=== PATIENT | female | born 1955 | race Caucasian/White ===

== ENCOUNTER 2020-10-03 15:21 | Outpatient (CLI) | payer MEDICARE, SELFPAY ==
--- NOTE | ~2020-10-03 | XR_ITS ---
XR lumbar spine 2-3V DATE: 10/03/2020 15:49 INDICATION: Low back pain radiating to left leg TECHNIQUE: AP, lateral, coned lateral lumbosacral views COMPARISON: None FINDINGS: There is diffuse osteopenia. No fracture or bone destruction of the lumbar spine. The lumbar pedicles are intact. There is mild degenerative disc disease at L1 to, L3-4 and L4-5. There is moderately severe degenerat theron disc disease at L5-S1. The sacroiliac joints appear normal. There is a prominent amount fecal material in the colon, particularly the descending colon. IMPRESSION: Diffuse osteopenia Multilevel degenerative disc disease Reviewed, dictated and finalized at location A.
== END 2020-10-03 15:22 | disposition home or self-care (01) ==
LOC: ANHIMG 15:28
PROVIDERS: PCP Family Medicine; Visit Provider Family Medicine
DX: M54.5 Low back pain (principal); M85.88 Other specified disorders of bone density and structure, other site; M51.36 Other intervertebral disc degeneration, lumbar region
CPT/HCPCS: 72100

== ENCOUNTER 2020-11-14 13:44 | Outpatient (CLI) | payer MEDICARE, SELFPAY ==
--- NOTE | ~2020-11-14 | DEXA_ITS ---
Bone Density Report Name: Maryjo Virk Age: 65 Sex: Female Ethnicity: White Date of : 1955 Indication: postmenopausal; height loss; Referring Provider: Berry Hall Study: Bone densitometry was performed. Exam Date: November 14, 2020 Accession number: [id number] Bone Density: Region BMD T-score Z-score Classification AP Spine (L1, L2, L3) 0.917 -0.9 0.7 Normal Femoral Neck (Left) 0.712 -1.2 0.2 Osteopenia Total Hip (Left) 0.813 -1.1 0.1 Osteopenia Total Hip Bilateral Avg 0.815 -1.1 0.1 Osteopenia Femoral Neck (Right) 0.670 -1.6 -0.2 Osteopenia Total Hip (Right) 0.817 -1.0 0.1 Normal World Health Organization criteria for BMD impression classify patients as: Normal (T-score at or above -1.0), Osteopenia (T-score between -1.0 and -2.5), or Osteoporosis (T-score at or below -2.5). 10-year Fracture Risk(1): Major Osteoporotic Fracture 8.6% Hip Fracture 0.9% Reported Risk Factors: [place] (), Neck BMD=0.670, BMI=31.8 (1) FRAX(R) Version 3.08. Fracture probability calculated for an untreated patient. Fracture probability may be lower if the patient has received treatment. Clinical Information Provided by Patient: Has used the following medications: Vitamin D Patient maximum height was 65 Menopause Age: 59 No regular weight bearing exercise Drinks caffeinated beverages Onset of menses at age 17 Number of children 0 Impression: The patient has low bone mass, based on the Right Femoral Neck T-score. The patient has an estimated ten-year risk of hip fracture of 0.9% and an estimated ten-year risk of major fracture of 8.6%, based on the WHO FRAX algorithm. Discussion: BONE DENSITY IS LOW AT ONE OR MORE SKELETAL SITES. This patient's lowest T-score is low at one or more skeletal sites. It meets the World Health Organization's (WHO) criteria for ?low bone mass? (T-score between -1.0 and -2.5). The patient's 10-year risk of fracture as calculated by FRAX is less than the threshold where pharmacological therapy is recommended by the National Osteoporosis Foundation (NOF). However, all treatment decisions require clinical judgment and consideration of individual patient factors, including patient preferences, comorbidities, previous drug use, risk factors not captured in the FRAX model (e.g., frailty, falls, vitamin D deficiency, increased bone turnover, interval significant decline in bone density) and possible under or overestimation of fracture risk by FRAX. The patient should follow a healthful lifestyle (good nutrition with adequate calcium and vitamin D, and appropriate weight-bearing exercise). Follow-Up: Consider repeating this study in 2 to 3 years to reassess this patient's status, or sooner if there is some new clinical indication. Reported by: CHUCHO on 11/14/2020 2:12:00 PM. _
== END 2020-11-14 13:45 | disposition home or self-care (01) ==
PROVIDERS: PCP Family Medicine; Visit Provider Family Medicine
DX: Z78.0 Asymptomatic menopausal state (principal); M85.89 Other specified disorders of bone density and structure, multiple sites
CPT/HCPCS: 77080

== ENCOUNTER 2021-03-15 13:05 | Outpatient (CLI) | payer MEDICARE, SELFPAY ==
--- NOTE | ~2021-03-15 | CT_ITS ---
EXAMINATION: CT soft tissue neck chest w EXAM DATE: 03/15/2021 13:40 INDICATION: R07.89 - Other chest pain . TECHNIQUE: Spiral CT of the neck and chest was performed following intravenous injection of 75 mL Omn ipaque 350. Axial, coronal and sagittal images of the neck were reviewed. Axial, coronal and sagitt al images of the chest were reviewed. Coronal maximum intensity pixel images of chest reviewed. The dose-length product (DLP) for this examination was 726.92 mGy-cm. The exposure was tailored accordi ng to patient size (auto mA exposure control), and iterative reconstruction (ASIR) was used as additi onal dose reduction technique. Correlation is made to abdomen pelvis CT 2010. FINDINGS: NECK: The thyroid gland is unremarkable. The submandibular and parotid glands are symmetric. Ther e is no cervical lymphadenopathy. There are no masses identified. The airway is unremarkable. P arapharyngeal and pre-glottic fat planes are preserved. No carotid, subclavian or vertebral artery dissection or stenosis. The orbits are unremarkable. Visualized sinuses and mastoid air cells are well aerated. There is overall moderate cervical spondylosis. CHEST: Right lower lobe 3.5 mm nodule is stable compared to 2011. Left lower lobe 4 mm nodule not pre viously imaged. Several smaller nodules. These are likely postinfectious. No central pulmonary emboli . There are no pleural or pericardial effusions. Tracheobronchial tree is patent. There is no med iastinal, hilar or axillary lymphadenopathy. There is no pneumothorax. Heart normal in size. No evidence of coronary arterial calcification. Splenic granulomata. There is small sliding gastroesoph ageal hiatal hernia. There is mild to moderate thoracic spondylosis without osteoblastic or osteolyt ic lesions identified. IMPRESSION: 1. No acute findings. 2. Several small nodules likely granulomata. Optional one-year follow-up chest CT without contrast. Reviewed, dictated and finalized at location B.
[2021-03-15 13:36] LABS: Estimated Glomerular Filt Rate > 60
== END 2021-03-15 13:06 | disposition home or self-care (01) ==
PROVIDERS: PCP Family Medicine; Visit Provider Family Medicine
DX: R07.89 Other chest pain (principal); S29.011A Strain of muscle and tendon of front wall of thorax, initial encounter; R91.8 Other nonspecific abnormal finding of lung field
CPT/HCPCS: 70491; 71260; Q9967

== ENCOUNTER → 2022-05-21 12:59 | Outpatient (CLI) | payer MEDICARE, SELFPAY ==
--- NOTE | ~2022-05-21 | MM_ITS ---
EXAMINATION: MM screening [facility] BI w franny HISTORY: Screening mammogram TECHNIQUE: Craniocaudal and mediolateral oblique 3-D tomosynthesis images were obtained and synthetic 2-D images were generated. CAD analysis was submitted and interpreted. COMPARISON: 01/12/2021, 01/25/2019, 10/29/2017 BREAST PARENCHYMAL COMPOSITION: There are scattered areas of fibroglandular density. FINDINGS: No suspicious mass, calcification, or architectural distortion are identified in either apoorva ast to suggest malignancy. There has been no suspicious interval change. IMPRESSION: 1. No mammographic evidence of malignancy. 2. Recommend routine screening mammography in one year. BI-RADS Category 1: Negative Reviewed, dictated and finalized at location A. 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
== END ==
PROVIDERS: Visit Provider Family Medicine
DX: Z12.31 Encounter for screening mammogram for malignant neoplasm of breast (principal)
CPT/HCPCS: 77063; 77067

== ENCOUNTER → 2022-06-03 11:55 | Outpatient (CLI) | payer MEDICARE, SELFPAY ==
--- NOTE | ~2022-06-03 | XR_ITS ---
Cervical Spine: AP, oblique, lateral, open-mouth views Clinical History: Cervicalgia Findings: The normal lordotic curve is maintained. The vertebral bodies and posterior elements appea r intact. Mild degenerative disc changes are noted at C4-C5, C5-C6, and C6-C7. Probable mild bilatera l neural foraminal narrowing at C4-C5 and C5-C6. Pre-vertebral soft tissues are unremarkable. Impression: Mild degenerative changes, as detailed above. No fracture or subluxation. Reviewed, dictated and finalized at location M. ROLLER Impression: Mild degenerative changes, as detailed above. No fracture or subluxation.
== END ==
PROVIDERS: PCP Family Medicine; Visit Provider Family Medicine
DX: M54.2 Cervicalgia (principal)
CPT/HCPCS: 72050

== ENCOUNTER 2022-06-04 09:23 | Outpatient (CLI) | payer MEDICARE, SELFPAY ==
[2022-06-04 20:04] LABS: Kit Draw Collected
== END 2022-06-04 09:24 | disposition home or self-care (01) ==
LOC: ANHGOSHLAB 09:26
PROVIDERS: PCP Family Medicine; Visit Provider Family Medicine
DX: E78.5 Hyperlipidemia, unspecified (principal); E55.9 Vitamin D deficiency, unspecified; F32.9 Major depressive disorder, single episode, unspecified; I42.9 Cardiomyopathy, unspecified; E53.8 Deficiency of other specified B group vitamins
CPT/HCPCS: 36415

== ENCOUNTER → 2022-06-11 09:52 | Outpatient (CLI) | payer MEDICARE, SELFPAY ==
--- NOTE | ~2022-06-11 | CT_ITS ---
CT Scan of the Chest without Contrast: Clinical Indication: Multiple pulmonary nodules Technique: Contiguous sections were acquired throughout the chest without intravenous contrast. Dose reduction technique was used on this scan by utilizing automated exposure control and iterative recon struction technique. The dose-length product (DLP) was 93.60 mGy-cm. COMPARISON: CT neck dated 03/15/2021 Findings: There is no evidence of any significant mediastinal, hilar or axillary lymphadenopathy. The mediastin al soft tissues appear normal. There is no evidence of pleural or pericardial effusion. There is a 4 mm right lower lobe pulmonary nodule (axial image 69). Several tiny right upper lobe sub pleural nodules are present. There is a perifissural nodule along the left major fissure in the left lower lobe, measuring 5 mm in diameter. Calcified left lower lobe granulomas are also noted. Images through the upper abdomen reveal no abnormalities. Impression: 4 mm right lower lobe pulmonary nodule, as detailed above. According to Fleischner Society criteria, for a low-risk patient, no further follow-up required. For a high-risk patient, consider 12 month fol low-up CT. Additional benign pulmonary nodules, as noted above. Reviewed, dictated and finalized at location M. 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 According to Fleisch ner Society criteria, for a low-risk patient, no further follow-up required. Fo r a high-risk patient, consider 12 month follow-up CT. Additional benign pulmonary nodules, as noted above.
== END ==
PROVIDERS: PCP Family Medicine; Visit Provider Family Medicine
DX: R91.8 Other nonspecific abnormal finding of lung field (principal)
CPT/HCPCS: 71250

== ENCOUNTER 2022-11-12 10:22 | Outpatient (CLI) | payer MEDICARE, SELFPAY ==
[2022-11-12 21:12] LABS: Basophils Absolute Auto 0.1 K/mm3 (0.0-0.1); Basophils Percent Auto 0.9 % (0.2-1.2); Eosinophils Absolute Auto 0.2 K/mm3 (0-0.3); Immature Granulocyte Absolute 0.01 K/mm3 (0.00-0.031); Immature Granulocyte Percent A 0.1 % (0-0.5); Lymphocytes Absolute Auto 2.25 K/mm3 (0.9-3.2); Lymphocytes Percent Auto 32.2 % (18.3-44.2); Mean Corpuscular Hemoglobin 29.1 pg (26-34); Monocytes Absolute Auto 0.7 K/mm3 (0.1-0.6); Monocytes Percent Auto 10.2 % (2.6-8.5); Neutrophils Absolute Auto 3.8 K/mm3 (1.3-6.7); Neutrophils Percent Auto 53.6 % (45.5-73.1); Platelet Count Result 280 k/mm3 (150-375); Red Blood Count 4.47 M/mm3 (4.2-5.4); Red Cell Distribution Width 14.1 % (11.5-14.5)
[2022-11-12 21:34] LABS: Vitamin D 25 Hydroxy 44.7 ng/mL
[2022-11-12 23:43] LABS: Alanine Aminotransferase 29 U/L (6-35); Alkaline Phosphatase 87 U/L (38-126); Anion Gap 9 mmol/L (8-16); Aspartate Amino Transferase 29 U/L (14-36); Bilirubin,Total 0.3 mg/dL (0.2-1.3); Blood Urea Nitrogen 13 mg/dL (7-17); Carbon Dioxide 26 mmol/L (22-30); Chloride 105 mmol/L (98-107); Estimated Glomerular Filt Rate > 60; Glucose 89 mg/dL (65-110); Magnesium 2.2 mg/dL (1.6-2.3); Sodium 140 mmol/L (137-145)
== END 2022-11-12 10:23 | disposition home or self-care (01) ==
LOC: ANHGOSHLAB 10:23
PROVIDERS: PCP Family Medicine; Visit Provider Nurse Practitioner Family
DX: R25.2 Cramp and spasm (principal); E53.8 Deficiency of other specified B group vitamins; E87.8 Other disorders of electrolyte and fluid balance, not elsewhere classified; E55.9 Vitamin D deficiency, unspecified
CPT/HCPCS: 36415; 80053; 82306; 82607; 83735; 85025

== ENCOUNTER 2022-11-19 15:35 | Outpatient (CLI) | payer MEDICARE, SELFPAY ==
--- NOTE | ~2022-11-19 | US_ITS ---
EXAMINATION: US venous doppler [facility] DATE: 11/19/2022 16:11 INDICATION: M79.661 - Pain in right lower leg . TECHNIQUE: Grayscale images without and with compression and Doppler images of the bilateral lower ex tremity veins were obtained. COMPARISON: None FINDINGS: The right common femoral vein, profunda (deep) femoral vein, femoral vein, popliteal vein, peroneal v ein, posterior tibial veins, gastrocnemius vein, and greater saphenous vein are patent. The left common femoral vein, profunda (deep) femoral vein, femoral vein, popliteal vein, peroneal v ein, posterior tibial veins, gastrocnemius vein, and greater saphenous vein are patent. IMPRESSION: 1. Patent bilateral lower extremity veins. No evidence of deep venous thrombosis. Reviewed, dictated and finalized at location K. IMPRESSION: 1. Patent bilateral lower extremity veins. No evidence of deep venous thrombos is.
== END 2022-11-19 15:36 | disposition home or self-care (01) ==
PROVIDERS: PCP Family Medicine; Visit Provider Nurse Practitioner Family
DX: M79.662 Pain in left lower leg (principal); M79.661 Pain in right lower leg
CPT/HCPCS: 93970

== ENCOUNTER 2023-06-20 08:49 | Outpatient (CLI) | payer MEDICARE, SELFPAY ==
[2023-06-20 13:25] LABS: Basophils Absolute Auto 0.1 K/mm3 (0.0-0.1); Basophils Percent Auto 1.5 % (0.2-1.2); Eosinophils Absolute Auto 0.2 K/mm3 (0-0.3); Hematocrit 43.4 % (37.0-47.0); Hemoglobin 13.1 g/dL (12.0-15.0); Immature Granulocyte Absolute 0.02 K/mm3 (0.00-0.031); Immature Granulocyte Percent A 0.3 % (0-0.5); Lymphocytes Absolute Auto 2.65 K/mm3 (0.9-3.2); Lymphocytes Percent Auto 33.4 % (18.3-44.2); Mean Corpuscular HGB Conc 30.2 g/dl (32-36); Mean Corpuscular Hemoglobin 28.6 pg (26-34); Mean Corpuscular Volume 94.8 fl (80-100); Mean Platelet Volume 11.2 fl (7.4-10.4); Monocytes Absolute Auto 0.8 K/mm3 (0.1-0.6); Monocytes Percent Auto 10.6 % (2.6-8.5); Neutrophils Absolute Auto 4.1 K/mm3 (1.3-6.7); Neutrophils Percent Auto 51.2 % (45.5-73.1); Platelet Count Result 276 k/mm3 (150-375); Red Blood Count 4.58 M/mm3 (4.2-5.4); Red Cell Distribution Width 13.5 % (11.5-14.5); White Blood Count 7.9 K/mm3 (4.5-10.0)
[2023-06-20 13:47] LABS: Alanine Aminotransferase 29 U/L (6-35); Albumin Level 4.2 g/dL (3.5-5.1); Alkaline Phosphatase 83 U/L (38-126); Anion Gap 11 mmol/L (8-16); Aspartate Amino Transferase 52 U/L (14-36); Bilirubin,Total 0.4 mg/dL (0.2-1.3); Blood Urea Nitrogen 19 mg/dL (7-17); Calcium 9.2 mg/dL (8.4-10.2); Carbon Dioxide 24 mmol/L (22-30); Chloride 107 mmol/L (98-107); Estimated Glomerular Filt Rate > 60; Glucose 81 mg/dL (65-110); Potassium 3.7 mmol/L (3.4-5.0); Sodium 142 mmol/L (137-145)
[2023-06-20 14:46] LABS: Vitamin D 25 Hydroxy 38.5 ng/mL
[2023-06-20 15:19] LABS: Hemoglobin A1C 5.7 % (<5.7)
== END 2023-06-20 08:50 | disposition home or self-care (01) ==
LOC: ANHGOSHLAB 08:50
PROVIDERS: PCP Family Medicine; Visit Provider Nurse Practitioner Family
DX: F41.9 Anxiety disorder, unspecified (principal); E55.9 Vitamin D deficiency, unspecified; R73.03 Prediabetes; E53.8 Deficiency of other specified B group vitamins; Z13.29 Encounter for screening for other suspected endocrine disorder
CPT/HCPCS: 36415; 80053; 82306; 82607; 83036; 84443; 85025

== ENCOUNTER → 2023-07-28 09:05 | Outpatient (CLI) | payer MEDICARE, SELFPAY ==
--- NOTE | ~2023-07-28 | MR_ITS ---
EXAMINATION: MR foot RT wo con DATE: 07/28/2023 09:51 INDICATION: Right midfoot pain TECHNIQUE: Magnetic resonance imaging (MRI) of the right fore/mid foot was performed without intraven ous contrast. Sequences included sagittal T1-weighted FSE, sagittal fluid sensitive FSE STIR, coronal PD-weighted FS FSE, coronal T1-weighted FSE, axial PD-weighted FS FSE, and axial PD-weighted FSE. COMPARISON: None FINDINGS: Old healed fracture deformity at the distal diaphysis of the right fifth metatarsal which has healed with 25 degree medial angulation. No acute fracture. No fracture or pathologic marrow replacing proce ss. Mild polyarticular osteoarthritis involving the first metatarsophalangeal and multiple tarsometat arsal and interphalangeal joints. The Lisfranc ligament complex and the collateral ligament complex a t the metatarsophalangeal and interphalangeal joints are normal. Mild enthesopathy with small amount of enthesopathic ossification at the tibialis anterior insertion to the medial base of the first meta tarsal. Remainder of the visualized flexor and extensor tendons are normal. Intrinsic musculature of the foot demonstrates normal bulk and signal. Physiologic amount fluid in the joint spaces. There are couple small ganglion cysts plantar to the head of the second metatarsal, the larger plantar to the first intermetatarsal space measuring 6 x 6 x 4 mm. IMPRESSION: 1. Enthesopathy at the first metatarsal insertion of the tibialis anterior tendon which is located re latively close proximity to the marker indicating the site of maximal pain. 2. Typical distribution of mild polyarticular osteoarthritis in the mid and forefoot. Line 3. Couple small ganglion cysts located plantar the head of the second metatarsal likely arising from the second metatarsophalangeal joint. Reviewed, dictated and finalized at location A. 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 Enthesopathy at the first metatarsal insertion of the tibialis anterior tend on which is located relatively close proximity to the marker indicating the sit e of maximal pain. 2. Typical distribution of mild polyarticular osteoarthritis in the mid and for efoot. Line 3. Couple small ganglion cysts located plantar the head of the second metatarsa l likely arising from the second metatarsophalangeal joint.
== END ==
PROVIDERS: PCP Orthopaedic Surgery; Visit Provider Orthopaedic Surgery
DX: M79.671 Pain in right foot (principal)
CPT/HCPCS: 73718

== ENCOUNTER 2023-07-30 09:26 | Outpatient (CLI) | payer MEDICARE, SELFPAY ==
[2023-07-31 11:52] LABS: Rapid Plasma Reagin Non-Reactive (NonReactive)
[2023-08-01 21:26] LABS: Treponema pallidum Ab FTA ABS Nonreactive (Nonreactive)
== END 2023-07-30 09:27 | disposition home or self-care (01) ==
LOC: ANHGOSHLAB 09:28
PROVIDERS: PCP Family Medicine; Visit Provider Nurse Practitioner Family
DX: A53.0 Latent syphilis, unspecified as early or late (principal)
CPT/HCPCS: 36415; 86592; 86780

== ENCOUNTER 2024-02-18 09:40 | Outpatient (CLI) | payer MEDICARE, SELFPAY ==
--- NOTE | ~2024-02-18 | DEXA_ITS ---
Bone Density Report Name: FLORIAN LOWERY Age: 68 Sex: Female Ethnicity: White Date of : 1955 Indication: osteopenia; parental hip fracture; height loss; inflammatory bowel disease; rheumatoid arthritis; Referring Provider: ARABELLA TEE Study: Bone densitometry was performed. Exam Date: February 18, 2024 Accession number: [id number] Bone Density: Region BMD T-score Z-score Classification AP Spine(L1-L4) 1.018 -0.3 1.6 Normal Femoral Neck (Left) 0.682 -1.5 0.1 Osteopenia Total Hip (Left) 0.825 -1.0 0.4 Normal Femoral Neck (Right) 0.680 -1.5 0.1 Osteopenia Total Hip (Right) 0.838 -0.9 0.5 Normal Total Hip Mean 0.831 -1.0 0.5 Normal World Health Organization criteria for BMD impression classify patients as: Normal (T-score at or above -1.0), Osteopenia (T-score between -1.0 and -2.5), or Osteoporosis (T-score at or below -2.5). 10-year Fracture Risk(1): Major Osteoporotic Fracture 20% Hip Fracture 1.9% Reported Risk Factors: [place] (), Neck BMD=0.682, BMI=34.0, parental fracture, rheumatoid arthritis (1) FRAX(R) Version 3.08. Fracture probability calculated for an untreated patient. Fracture probability may be lower if the patient has received treatment. Previous Exams: Region Exam Age BMD T-score BMD Change BMD Change Date g/cm2 vs Baseline vs Previous Total Hip(Left) 02/18/2024 68 0.825 -1.0 0.012 (1.5%) 0.012 (1.5%) 11/14/2020 65 0.813 -1.1 Total Hip(Right) 02/18/2024 68 0.838 -0.9 0.021 (2.6%) 0.021 (2.6%) 11/14/2020 65 0.817 -1.0 *Denotes significance at 95% confidence level, LSC for Total Hip = 0.027 g/cm2 Clinical Information Provided by Patient: Parent has had a hip fracture Has rheumatoid arthritis Has used the following medications: Vitamin D Has the following medical conditions: Inflammatory bowel diseases Patient maximum height was 65.0 Menopause Age: 59 No regular weight bearing exercise Drinks caffeinated beverages Onset of menses at age 15 Number of children 0 Impression: The patient has low bone mass, based on the Left Femoral Neck T-score. The patient has an estimated ten-year risk of hip fracture of 1.9% and an estimated ten-year risk of major fracture of 20%, based on the WHO FRAX algorithm. The patient has risk factors, including: parental hip fracture. No significant bone loss was observed. Discussion: BONE DENSITY IS LOW AT ONE OR MORE SKELETAL SITES. THE PATIENT'S BMD AND CLINICAL RISK
== END 2024-02-18 09:41 | disposition home or self-care (01) ==
LOC: ANHIMG 09:40
PROVIDERS: PCP Nurse Practitioner Family; Visit Provider Nurse Practitioner Family
DX: Z78.0 Asymptomatic menopausal state (principal); M84.374A Stress fracture, right foot, initial encounter for fracture; E55.9 Vitamin D deficiency, unspecified; M85.852 Other specified disorders of bone density and structure, left thigh; M85.851 Other specified disorders of bone density and structure, right thigh
CPT/HCPCS: 77080

== ENCOUNTER 2024-06-25 12:45 | Outpatient (CLI) | payer MEDICARE, SELFPAY ==
[2024-06-25 15:02] LABS: Iron 88 ug/dL (37-170)
[2024-06-25 15:11] LABS: Basophils Percent Auto 0.5 % (0.2-1.2); Eosinophils Absolute Auto 0.1 K/mm3 (0-0.3); Eosinophils Percent Auto 1.8 % (0-4.4); Hematocrit 42.4 % (37.0-47.0); Hemoglobin 13.4 g/dL (12.0-15.0); Immature Granulocyte Absolute 0.02 K/mm3 (0.00-0.031); Immature Granulocyte Percent A 0.3 % (0-0.5); Lymphocytes Absolute Auto 2.14 K/mm3 (0.9-3.2); Lymphocytes Percent Auto 28.2 % (18.3-44.2); Mean Corpuscular HGB Conc 31.6 g/dl (32-36); Mean Corpuscular Hemoglobin 28.6 pg (26-34); Mean Corpuscular Volume 90.4 fl (80-100); Mean Platelet Volume 11.2 fl (7.4-10.4); Monocytes Absolute Auto 0.6 K/mm3 (0.1-0.6); Monocytes Percent Auto 8.4 % (2.6-8.5); Neutrophils Absolute Auto 4.6 K/mm3 (1.3-6.7); Neutrophils Percent Auto 60.8 % (45.5-73.1); Platelet Count Result 250 k/mm3 (150-375); Red Blood Count 4.69 M/mm3 (4.2-5.4); Red Cell Distribution Width 13.5 % (11.5-14.5); White Blood Count 7.6 K/mm3 (4.5-10.0)
[2024-06-25 15:14] LABS: Percent Iron Saturation 26 % (20-50); TOTAL IRON BINDING CAPACITY 343 ug/dL (261-462)
[2024-06-25 15:24] LABS: Alanine Aminotransferase 25 U/L (6-35); Albumin Level 4.2 g/dL (3.5-5.1); Alkaline Phosphatase 82 U/L (38-126); Anion Gap 2 mmol/L (4-12); Aspartate Amino Transferase 37 U/L (14-36); Bilirubin,Total 0.4 mg/dL (0.2-1.3); Blood Urea Nitrogen 15 mg/dL (7-17); Calcium 9.4 mg/dL (8.4-10.2); Carbon Dioxide 27 mmol/L (22-30); Chloride 110 mmol/L (98-107); Cholesterol 128 mg/dL (0-200); Estimated Glomerular Filt Rate > 60; Glucose 95 mg/dL (65-110); HDL Direct 52 mg/dL; Potassium 4.3 mmol/L (3.4-5.0); Sodium 139 mmol/L (137-145); Triglycerides 80 mg/dL (<150)
[2024-06-25 15:37] LABS: LDL Cholesterol Direct 48 mg/dL
[2024-06-25 16:50] LABS: Hemoglobin A1C 5.8 % (<5.7)
[2024-06-25 17:37] LABS: Folic Acid 14.9 ng/mL (2.76->20)
== END 2024-06-25 12:46 | disposition home or self-care (01) ==
LOC: ANHGOSHLAB 12:46
PROVIDERS: PCP Family Medicine; Visit Provider Family Medicine
DX: E11.9 Type 2 diabetes mellitus without complications (principal); E03.9 Hypothyroidism, unspecified; D64.9 Anemia, unspecified; E53.8 Deficiency of other specified B group vitamins; I10 Essential (primary) hypertension; E78.5 Hyperlipidemia, unspecified; I42.9 Cardiomyopathy, unspecified; I47.10 Supraventricular tachycardia, unspecified
CPT/HCPCS: 36415; 80053; 80061; 82607; 82728; 82746; 83036; 83540; 83550; 84443; 85025

== ENCOUNTER 2024-11-26 09:51 | Outpatient (CLI) | payer MEDICARE, SELFPAY ==
--- NOTE | ~2024-11-26 | CT_ITS ---
EXAMINATION: CT abdomen pelvis w con DATE: 11/26/2024 10:35 INDICATION: Pelvic pain TECHNIQUE: Computed tomography (CT) of the abdomen and pelvis was performed with 100 cc Omnipaque 350 intravenous contrast. The dose-length product was 670.38 mGy-cm. Automated exposure control and iter ative reconstruction technique were employed. COMPARISON: 09/06/2010 FINDINGS: Lung bases unremarkable. Heart size normal. No significant pleural or pericardial effusion. There are calcified granulomas of the spleen. There is fluid throughout the small bowel which is non dilated, nonspecific. Normal appendix. Mild fatty infiltration of the liver. The pancreas, adrenal glands and kidneys are unremarkable. Gall bladder is contracted. No free air or free fluid. No evidence for bowel obstruction. There is moderat e lower thoracic and lumbar spondylosis. There is degenerative spondylolisthesis at L4-5. IMPRESSION: 1. No acute abdominal abnormality. Reviewed, dictated and finalized at location A.
--- OUTSIDE RECORDS SUMMARY | 2024-11-26 09:58 | XMS_ITS | Data Portability ---
Author Organization [place] [facility] [employer], Main Office Address [address] [place] [address] Assessment Encounter Date Assessment Date Assessment LastModified by Organization Details LastModified Time 02/03/2024 02/03/2024 Assessment: Cough CARLOS Pulmonary nodules Splenic granulomas Plan: The following were reviewed and explained to the patient: Abdomen CT 06/30/20 up to 6 mm bilateral pulm nodules Chest CT 12/18/20 up to 4.4 mm bilateral pulm nodules, splenic granulomas, thoracic DDD [facility] sleep study 09/23/16 AHI = 3 Lab data 02/15/21 Reassurance that her lab work results are within normal limits. Her cough may be contributed by CARLOS as this is worse when she lays down at night. We will also consider the commonly used drugs that may be implicated in chronic cough Angiotensin 2 receptor (A2R) blockers - losartan - she takes daily and dose was increased from 50 to 100 mg daily since 2022. A2R blockers are commonly used as a first substitute when YANIRA inhibitor cough appears, though they have a similar side effect profile to YANIRA inhibitors. However, cough can still occur with A2R blockers but is typically three to four times less common. Cough recurrence rates are also lower with A2R blockers but they should not be overlooked as a cause of chronic cough. Non-steroidal anti-inflammatory drugs (NSAIDs) - meloxicam - but she uses rarely prn. Aspirin and NSAIDS can cause bronchoconstriction in 5% of people with asthma by driving cysteinyl leukotriene production and inhibiting cyclooxygenase-1 (BABB-1). Symptoms may occur within 30 minutes to 3 hours of ingestion and be associated with facial flushing and nasal and upper airway symptoms. Leukotriene antagonists (as part of asthma therapy) are particularly helpful in treating these symptoms. Complete pulmonary function testing (PFT) ordered. Her hypersomnia may be contributed by her morning dose of topiramate, which she has been taking for weight loss purposes. Recommend dosing topiramate at dinnertime instead. Fleischner Society pulmonary nodule recommendations: 1. Pulmonary nodule less than or equal to 4 mm: No follow-up needed in low risk patient. Follow-up at 12 months in high-risk patient. If no change, no further imaging needed. 2. 4-6 mm: Follow-up at 12 months in a low risk patient. If no change, no further imaging needed. Initial follow-up CT at 6 to 12 months and then at 18 to 24 months if no change in high-risk patient. 3. 6-8 mm: Initial follow-up CT at 6 to 12 months and then at 18 to 24 months if no change in low-risk patient. 4. >8 mm: Follow-up CT at around 3, 9 and 24 months. Dynamic contrast enhanced CT, PET, and or biopsy in low risk patient. Same as low risk patient in high-risk patient. Chest CT ordered. Advised to continue not to smoke. Adherence to therapy is advocated. Nonadherence may lead to treatment failure, further progression of the condition, and other complications. Hospitals admissions are often the result of individuals not taking prescription medications accurately. Alternatively, greater adherence to medication regimens have shown to lower rates of hospitalization and decrease total medical costs in patients with chronic medical conditions. Advocated influenza vaccination annually and pneumonia vaccination FRANCISCO. Advocated weight loss through diet and exercise. Patient's ideal body weight according to height and gender is up to 135 lbs. Encouraged patient to adjust caloric intake to maintain/achieve ideal body weight, emphasizing on fruits, vegetables, whole grains, and fat-free or low-fat products. These include lean meats, poultry, fish, beans, eggs, and nuts and foods that are low in saturated fats, trans-fats, cholesterol, salt (sodium), and glycemic index. Stressed the importance of regular exercise up to the patient's capacity limits. In this case, we recommend 20 min daily walking, 2 days a week of resistance training. Patient to monitor BP daily and bring records to PCP for further management. Follow-up: 1 week after PFT and chest CT Not available 02/03/2024 12:35:48 03/15/2024 03/15/2024 Assessment: CARLOS Mild COPD Stable pulmonary nodules Splenic granulomas Plan: The following were reviewed and explained to the patient: Abdomen CT 06/30/20 up to 6 mm bilateral pulm nodules Chest CT 12/18/20 up to 4.4 mm bilateral pulm nodules Chest CT 02/16/24 up to 3 mm bilateral pulm nodules [facility] sleep study 09/23/16 AHI = 3 Lab data 02/15/21 2-D echocardiogram 07/05/21 EF 60% PFT 03/15/24 FEV1 2.27 L (106%), BD 90 mL = 4%, TLC 4.70 L (106%), RV 0.99 L (57%), DLCO 69%, DLCO/VA 85% Her cough may be contributed by CARLOS as this is worse when she lays down at night. We will also consider the commonly used drugs that may be implicated in chronic cough Angiotensin 2 receptor (A2R) blockers - losartan - she takes daily and dose was increased from 50 to 100 mg daily since 2022. A2R blockers are commonly used as a first substitute when YANIRA inhibitor cough appears, though they have a similar side effect profile to YANIRA inhibitors. However, cough can still occur with A2R blockers but is typically three to four times less common. Cough recurrence rates are also lower with A2R blockers but they should not be overlooked as a cause of chronic cough. Non-steroidal anti-inflammatory drugs (NSAIDs) - meloxicam - but she uses rarely prn. Aspirin and NSAIDS can cause bronchoconstriction in 5% of people with asthma by driving cysteinyl leukotriene production and inhibiting cyclooxygenase-1 (BABB-1). Symptoms may occur within 30 minutes to 3 hours of ingestion and be associated with facial flushing and nasal and upper airway symptoms. Leukotriene antagonists (as part of asthma therapy) are particularly helpful in treating these symptoms. General information on COPD was covered. Educational video was shown. The video explained what COPD is and how it affects breathing. Self-care skills such as not smoking, using medications as prescribed, oxygen therapy, and knowing when to contact the healthcare provider are covered. Diaphragmatic breathing and pursed lip breathing are explained and demonstrated. Positive lifestyle changes are introduced. Following these self-care skills will help in the management of COPD so the patient can stay out of the hospital. Albuterol HFA as needed. Her hypersomnia may be contributed by her morning dose of topiramate, which she has been taking for weight loss purposes. Recommend dosing topiramate at dinnertime instead. Fleischner Society pulmonary nodule recommendations: 1. Pulmonary nodule less than or equal to 4 mm: No follow-up needed in low risk patient. Follow-up at 12 months in high-risk patient. If no change, no further imaging needed. 2. 4-6 mm: Follow-up at 12 months in a low risk patient. If no change, no further imaging needed. Initial follow-up CT at 6 to 12 months and then at 18 to 24 months if no change in high-risk patient. 3. 6-8 mm: Initial follow-up CT at 6 to 12 months and then at 18 to 24 months if no change in low-risk patient. 4. >8 mm: Follow-up CT at around 3, 9 and 24 months. Dynamic contrast enhanced CT, PET, and or biopsy in low risk patient. Same as low risk patient in high-risk patient. Repeat chest CT 01/2025. Advised to continue not to smoke. Adherence to therapy is advocated. Nonadherence may lead to treatment failure, further progression of the condition, and other complications. Hospitals admissions are often the result of individuals not taking prescription medications accurately. Alternatively, greater adherence to medication regimens have shown to lower rates of hospitalization and decrease total medical costs in patients with chronic medical conditions. Advocated influenza vaccination annually and pneumonia vaccination FRANCISCO. Advocated weight loss through diet and exercise. Patient's ideal body weight according to height and gender is up to 135 lbs. Encouraged patient to adjust caloric intake to maintain/achieve ideal body weight, emphasizing on fruits, vegetables, whole grains, and fat-free or low-fat products. These include lean meats, poultry, fish, beans, eggs, and nuts and foods that are low in saturated fats, trans-fats, cholesterol, salt (sodium), and glycemic index. Stressed the importance of regular exercise up to the patient's capacity limits. In this case, we recommend 20 min daily walking, 2 days a week of resistance training. Patient to monitor BP daily and bring records to PCP for further management. Follow-up: 3 months, May 2024 Not available 03/15/2024 13:47:05 06/14/2024 06/14/2024 Assessment: CARLOS Mild COPD Stable pulmonary nodules Splenic granulomas Plan: The following were reviewed and explained to the patient: Abdomen CT 06/30/20 up to 6 mm bilateral pulm nodules Chest CT 12/18/20 up to 4.4 mm bilateral pulm nodules Chest CT 02/16/24 up to 3 mm bilateral pulm nodules [facility] sleep study 09/23/16 AHI = 3 Lab data 02/15/21 2-D echocardiogram 07/05/21 EF 60% PFT 03/15/24 FEV1 2.27 L (106%), BD 90 mL = 4%, TLC 4.70 L (106%), RV 0.99 L (57%), DLCO 69%, DLCO/VA 85% General information on COPD was covered. The video explained what COPD is and how it affects breathing. Self-care skills such as not smoking, using medications as prescribed, oxygen therapy, and knowing when to contact the healthcare provider are covered. Diaphragmatic breathing and pursed lip breathing are explained and demonstrated. Positive lifestyle changes are introduced. Following these self-care skills will help in the management of COPD so the patient can stay out of the hospital. Albuterol HFA as needed. Her hypersomnia may be contributed by her morning dose of topiramate, which she has been taking for weight loss purposes. Recommend dosing topiramate at dinnertime instead. Fleischner Society pulmonary nodule recommendations: 1. Pulmonary nodule less than or equal to 4 mm: No follow-up needed in low risk patient. Follow-up at 12 months in high-risk patient. If no change, no further imaging needed. 2. 4-6 mm: Follow-up at 12 months in a low risk patient. If no change, no further imaging needed. Initial follow-up CT at 6 to 12 months and then at 18 to 24 months if no change in high-risk patient. 3. 6-8 mm: Initial follow-up CT at 6 to 12 months and then at 18 to 24 months if no change in low-risk patient. 4. >8 mm: Follow-up CT at around 3, 9 and 24 months. Dynamic contrast enhanced CT, PET, and or biopsy in low risk patient. Same as low risk patient in high-risk patient. Repeat chest CT 01/2025. Advised to continue not to smoke. Adherence to therapy is advocated. Nonadherence may lead to treatment failure, further progression of the condition, and other complications. Hospitals admissions are often the result of individuals not taking prescription medications accurately. Alternatively, greater adherence to medication regimens have shown to lower rates of hospitalization and decrease total medical costs in patients with chronic medical conditions. Advocated influenza vaccination annually and pneumonia vaccination FRANCISCO. Advocated weight loss through diet and exercise. Patient's ideal body weight according to height and gender is up to 135 lbs. Encouraged patient to adjust caloric intake to maintain/achieve ideal body weight, emphasizing on fruits, vegetables, whole grains, and fat-free or low-fat products. These include lean meats, poultry, fish, beans, eggs, and nuts and foods that are low in saturated fats, trans-fats, cholesterol, salt (sodium), and glycemic index. Stressed the importance of regular exercise up to the patient's capacity limits. In this case, we recommend 20 min daily walking, 2 days a week of resistance training. Patient to monitor BP daily and bring records to PCP for further management. Follow-up: 9 months, February 2025 [facility] Not available 06/14/2024 11:10:53 Plan of Treatment Reminders Order Date Submit Date Provider Last Modified By Organization Details Last Modified Time Details Appointments Any 15 2024 09:00A Bessie Ma MD Not available Not available Not available Lab None recorded. Referral None recorded. Procedures None recorded. Surgeries None recorded. Imaging CT, chest, w/o contrast 2023 025 [facility] Not available 06/14/2024 11:13:33 CT, chest, w/o contrast 2023 024 [facility] ([facility]), [address] [place], [address], 02/16/2024 11:34:30 Medication Orders cefdinir 300 mg capsule 2024 025 [facility]/Pharmacy #[id number], [address], [place], [address], 11/24/2024 16:26:29 Medrol (Sergio) 4 mg tablets in a dose pack 2024 025 [facility]/Pharmacy #[id number], [address], [place], [address], 11/24/2024 16:26:29 albuterol sulfate HFA 90 mcg/actua tion aerosol inhaler 2023 024 [facility]/Pharmacy #[id number], [address], [place], [address], 06/14/2024 11:13:35 albuterol sulfate HFA 90 mcg/actua tion aerosol inhaler 2023 024 [facility]/Pharmacy #[id number], [address], [place], [address], 03/15/2024 11:00:25 Patient TargetsNo targets recorded. Patient Instructions Encounter Date Encounter Id Patient Instructions Last Modified By Organization Details Last Modified Time 02/03/2024 [id number] complete PFT w/ post bronchodilator spirometry* [email or web address] Not available 03/10/2024 17:13:21 06/14/2024 [id number] complete PFT w/ post bronchodilator spirometry* Not available 06/14/2024 11:13:33 11/24/2024 [id number] no infection has been identified but she will be covered with cefdinir and Medrol. If there is no improvement we will do a [place] [id number] Not available 11/24/2024 16:25:59 Reason for Referral None Reported. Results Created Date Observation Date Name Description Value Unit Range Abnormal Flag Note LastModifiedBy Organization Detail LastModifiedTime 02/15/20 21 09/23/2016 home sleep study No observ ation record ed. [id number] Not Available 08/21/2022 23:31:05 02/16/20 21 01/25/2021 XR, chest , 2 view No observ ation record ed. Not Available 2023 15:18:34 02/16/20 21 06/30/2020 CT, abdom en + pelvi s, w/ contr ast No observ ation record ed. [id number] Not Available 08/21/2022 23:31:05 02/20/20 21 12/18/2020 CT, chest , w/o contr ast No observ ation record ed. [id number] Not Available 08/21/2022 23:31:05 07/09/19 22 07/05/2021 US, echo ardio gram, trans thora cic, compl ete, w/ color flow No observ ation record ed. [id number] [facility] [address], [place], [address], 08/21/2022 23:31:05 02/16/20 24 02/16/2024 CT, chest , w/o contr ast No observ ation record ed. [address] [place], [address], 02/16/2024 12:53:34 03/22/20 24 03/15/2024 compl ete PFT w/ post [facility] hodil ator samir metry * No observ ation record ed. [facility] ([facility]) [address] [place], [address], 03/22/2024 14:55:02 Result Notes None recorded. Problems Name Problem SNOMED Code Status Onset Date Resolution Date Notes Provider Name and Address Organization Details Recorded Time Chronic obstructive pulmonary disease 58995966 Active 2023 Bernard Ma MD [address], [place], [address], Qio 4 19:00:16 Multiple nodules of lung 330244060 Active 2023 Bernard Ma MD [address], [place], [address], Qio 4 11:03:34 Bilateral earache 629425102 Active 2024 Shyam Mccabe MD [address], [place], [address], Qio 5 16:24:53 Notes:Medical History: Depre ssion Migraine headaches Eosinophils 270/uL Mild OSAHS, AHI = 3, 09/23/16 Hyperlipidemia 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 Procedures Surgical History Date Name Laterality Status Provider Name and Address Organization Details Recorded Time Foot Surgery completed Ruth Valdes MA [facility] 02/03/2024 12:06:45 repair of stress incontinence by suprapubic sling completed Ruth Valdes MA [facility] 02/03/2024 12:06:55 laparoscopy completed Ruth Valdes MA [facility] 02/03/2024 12:07:09 Imaging Results None recorded. Procedure Notes None recorded. Medical Equipment None Reported. Allergies No known drug allergies Medications Name Sig Start Date Stop Date Status Note LastModified by Organization Details LastModified Time losartan 50 mg tablet TAKE 1 TABLET BY MOUTH EVERY DAY 02/02 completed Not Available Not Available Not Available atorvastati n 80 mg tablet TAKE 1 TABLET BY MOUTH EVERY DAY active Not Available Not Available No t Available prednisone 10 mg tablet TAKE 4 TABS DAILY X3 DAYS, 3 TABS DAILY X3 DAYS, 2 TABS DAILY X3 DAYS, THEN 1 TAB DAILY X3 DAYS 05/26 completed Not Available Not Available Not Available doxycycline hyclate 100 mg capsule TAKE 1 CAPSULE BY MOUTH TWICE A DAY FOR 7 DAYS 02/02 completed Not Available Not Available Not Available triamcinolo ne acetonide 0.5 % topical cream APPLY TOPICALLY 2 TIMES A DAY USE NEEDED FOR ITCHING 06/14 completed Not Available Not Available Not Available fluconazole 150 mg tablet TAKE 1 TABETS BY MOUTH NOW AND ANOTHER IN 72 HOURS (3 DAYS) IF STILL HAVING SYMPTOMS 02/14 completed Not Available Not Available Not Available benzonatate 200 mg capsule TAKE 1 CAPSULE BY MOUTH THREE TIMES A DAY NEEDED FOR COUGH active Not Available Not Available No t Available meloxicam 15 mg tablet TAKE 1 TABLET BY MOUTH EVERY DAY active Not Available Not Available No t Available naltrexone 50 mg tablet TAKE 1/2 TABLET BY MOUTH DAILY, MAY INCREASE TO 1/2 TABLET TWICE A DAY IF NEEDED AFTER 1 WEEK 06/14 completed Not Available Not Available Not Available ondansetron HCl 4 mg tablet TAKE 1 TABLET BY MOUTH EVERY 8 HOURS NEEDED FOR NAUSEA AND VOMITING 03/15 completed Not Available Not Available Not Available Medrol (Sergio) 4 mg tablets in a dose pack Take 1 dose pk by oral route. 2024 active Not Available Not Available Not Avai lable sertraline 100 mg tablet TAKE 1 TABLET BY MOUTH EVERY DAY 06/14 completed Not Available Not Available Not Available permethrin 5 % topical cream APPLY FROM NECK DOWN TO SOLE OF FEET, WASH OFF AFTER AT LEAST 8 HOURS, REPEAT IN 14 DAYS IF NEEDED active Not Available Not Available No t Available prochlorper azine maleate 10 mg tablet TAKE 1 TABLET BY MOUTH EVERY 8 HOURS NEEDED 02/14 completed Not Available Not Available Not Available peg-electro lyte solution 420 gram oral solution TAKE DIRECTED BY OFFICE 02/02 completed Not Available Not Available Not Available omeprazole 40 mg capsule,del ayed release TAKE 1 CAPSULE BY MOUTH EVERY DAY 02/02 completed Not Available Not Available Not Available aspirin 81 mg tablet,lady yed release TAKE 1 TABLET BY MOUTH EVERY DAY 02/15 completed Not Available Not Available Not Available tramadol 50 mg tablet TAKE 1 TABLET (50 MG TOTAL) BY MOUTH EVERY 8 (EIGHT) HOURS NEEDED FOR PAIN. 02/02 completed Not Available Not Available Not Available ondansetron 8 mg disintegrat ing tablet LET 1 TABLET DISSOLVE BY MOUTH EVERY 8 HOURS NEEDED FOR NAUSEA/VO MITING 02/02 completed Not Available Not Available Not Available levothyroxi ne 25 mcg tablet TAKE 1 TABLET BY MOUTH EVERY DAY active Not Available Not Available No t Available dicyclomine 20 mg tablet TAKE 1 TABLET BY MOUTH TWICE A DAY 02/02 completed Not Available Not Available Not Available amlodipine 10 mg tablet TAKE 1 TABLET BY MOUTH EVERY DAY active Not Available Not Available No t Available benzonatate 100 mg capsule TAKE 1 CAPSULE BY MOUTH THREE TIMES A DAY NEEDED FOR COUGH 05/26 completed Not Available Not Available Not Available doxycycline monohydrate 100 mg capsule TAKE 1 CAPSULE BY MOUTH TWICE A DAY FOR 7 DAYS 02/02 completed Not Available Not Available Not Available cephalexin 500 mg capsule TAKE 1 CAPSULE (500 MG TOTAL) BY MOUTH ONCE FOR 1 DOSE 30 MINUTE PRIOR TO THE URO-D TEST 03/15 completed Not Available Not Available Not Available pantoprazol e 40 mg tablet,lady yed release TAKE 1 TABLET BY MOUTH EVERY DAY IN THE MORNING active Not Available Not Available No t Available ferrous sulfate 325 mg (65 mg iron) tablet TAKE 1 TABLET BY MOUTH EVERY DAY active Not Available Not Available No t Available triamcinolo ne acetonide 0.1 % topical ointment APPLY TO THE AFFECTED AREAS TWICE DAILY FOR 10 DAYS, AVOID FACE AND GENITAL AREA 06/14 completed Not Available Not Available Not Available prednisone 50 mg tablet TAKE 1 TABLET BY MOUTH EVERY DAY 02/15 completed Not Available Not Available Not Available promethazin e 25 mg tablet TAKE 1/2 TABLET BY MOUTH EVERY 6 HOURS NEEDED FOR NAUSEA 02/02 completed Not Available Not Available Not Available sertraline 25 mg tablet TAKE 1 TABLET BY MOUTH EVERY DAY active Not Available Not Available No t Available hydroxyzine HCl 25 mg tablet PLEASE SEE ATTACHED FOR DETAILED DIRECTION S active Not Available Not Available No t Available mupirocin 2 % topical ointment APPLY TO AFFECTED AREA 3 TIMES A DAY active Not Available Not Available No t Available albuterol sulfate HFA 90 mcg/actuati on aerosol inhaler INHALE 1 PUFF EVERY 4 HOURS NEEDED active Not Available Not Available No t Available sumatriptan 20 mg/actuatio n nasal spray USE DIRECTED NEEDED FOR MIGRAINE. LIMIT TO TWICE DAILY active Not Available Not Available No t Available ondansetron 4 mg disintegrat ing tablet DISSOLVE 1 TAB IN MOUTH 30 MINUTES PRIOR TO EACH PREP DOSE,THEN EVERY 4 6 HOURS NEEDED FOR NAUSEA 02/14 completed Not Available Not Available Not Available cefdinir 300 mg capsule Take 1 capsule every 12 hours by oral route. 2024 active Not Available Not Available Not Avai lable topiramate 100 mg tablet TAKE 1 TABLET BY MOUTH EVERY DAY active Not Available Not Available No t Available losartan 100 mg tablet TAKE 1 TABLET BY MOUTH EVERY DAY 06/14 completed Not Available Not Available Not Available fluticasone propionate 50 mcg/actuati on nasal spray,suspe nsion active Not Available Not Available Not Available cholecalcif vijay (vitamin D3) 125 mcg (5,000 unit) capsule TAKE 1 CAPSULE BY MOUTH EVERY DAY active Not Available Not Available No t Available dicyclomine 10 mg capsule TAKE 1 CAPSULE BY MOUTH THREE TIMES A DAY NEEDED FOR ABDOMINAL PAIN 02/15 completed Not Available Not Available Not Available phentermine 37.5 mg capsule TAKE 1 CAPSULE BY MOUTH EVERY DAY TO LOSE WEIGHT active Not Available Not Available No t Available amoxicillin 875 mg-guadalupeu m clavulanate 125 mg tablet TAKE 1 TABLET BY MOUTH TWICE A DAY 11/24 completed Not Available Not Available Not Available rizatriptan 5 mg tablet TAKE 1 TAB BY MOUTH ONCE AT FIRST SIGN OF MIGRAINE. MAY REPEAT ONE TIME AFTER 2 HOURS IF NEEDED. 02/02 completed Not Available Not Available Not Available ezetimibe 10 mg tablet TAKE 1 TABLET BY MOUTH EVERY DAY WITH ATORVASTA TIN active Not Available Not Available No t Available nitrofurant oin monohydrate /macrocryst als 100 mg capsule TAKE 1 CAPSULE BY MOUTH NEEDED AFTER INTERCOUR SE active Not Available Not Available No t Available trospium 20 mg tablet TAKE 1 TABLET BY MOUTH TWICE A DAY 06/14 completed Not Available Not Available Not Available Senexon-S 8.6 mg-50 mg tablet TAKE 1 TABLET BY MOUTH EVERY DAY 02/02 completed Not Available Not Available Not Available Suprep Bowel Prep Kit 17.5 gram-3.13 gram-1.6 gram oral solution TAKE FIRST DOSE AT 6PM THE NIGHT BEFORE PROCEDURE AND THEN TAKE 6 HOURS PRIOR TO PROCEDURE 02/14 completed Not Available Not Available Not Available Yuvafem 10 mcg vaginal tablet INSERT 1 TABLET VAGINALLY 2 TIMES WEEKLY FOR 30 DAYS 06/14 completed Not Available Not Available Not Available Linzess 72 mcg capsule TAKE 1 CAPSULE BY MOUTH ONCE DAILY ON EMPTY STOMACH AT LEAST 30 MINUTES BEFORE 1ST MEAL OF THE DAY 06/14 completed Not Available Not Available Not Available Ozempic 0.25 mg or 0.5 mg (2 mg/1.5 mL) subcutaneou s pen injector INJECT 0.25 MG SUBQ ONCE WEEKLY FOR 4 WEEKS. THEN INCREASE TO 0.5 MG SUBQ WEEKS TO REDUCE CV EVENTS. 02/15 completed Not Available Not Available Not Available Wegovy 0.25 mg/0.5 mL subcutaneou s pen injector INJECT THE CONTENTS OF 1 PEN UNDER THE SKIN ONCE WEEKLY X4 WEEKS active Not Available Not Available No t Available Vitals Date Recorded Body height Body mass index (BMI) Body weight Body temperature Provider Name and Address Organization Details Last Updated DateTime 11/24/2024 165.1 cm 30.8 kg/m2 46426.59 g 98 [degF] Kerri Vasquez RN [facility] [employer] 11/24/2024 16:08:29 Date Recorded Heart rate Respiratory rate Provider Wagner nataly and Address Organization Details Last Updated DateTime 02/03/2024 77 /min 15 /min Bernard Ma MD [address], [place], [address], [facility] [employer] 02/03/2024 12:09:41 Date Recorded Body height Body mass index (BMI) Body weight Body temperature Heart rate Oxygen saturation Oxygen saturation in Arterial blood by Pulse oximetry Systolic blood pressure Diastolic blood pressure Provider Name and Address Organization Details Last Updated DateTime 4 165.1 cm 31 kg/m2 90333.6 2 g 98.3 [degF] 77 /min 98 % 98 % 116 mm[Hg] 64 mm[Hg] Ruth Valdes MA [facility] [employer] 11:58:49 Date Recorded Body mass index (BMI) Body height Oxygen saturation Oxygen saturation in Arterial blood by Pulse oximetry Heart rate Respiratory rate Body temperature Body weight Systolic blood pressure Diastolic blood pressure Provider Name and Address Organization Details Last Updated DateTime 1 30.4 kg/m2 165.1 cm 99 % 99 % 87 /min 18 /min 98 [degF] 25069.6 9 g 118 mm[Hg] 86 mm[Hg] Not Available [facility] 3 23:28:30 Date Recorded Heart rate Respiratory rate Provider Wagner nataly and Address Organization Details Last Updated DateTime 03/15/2024 84 /min 14 /min Bernard Ma MD [address], [place], [address], [facility] [employer] 03/15/2024 11:04:41 Date Recorded Body height Body mass index (BMI) Body weight Heart rate Oxygen saturation Oxygen saturation in Arterial blood by Pulse oximetry Body temperature Systolic blood pressure Diastolic blood pressure Provider Name and Address Organization Details Last Updated DateTime 4 165.1 cm 30.8 kg/m2 93538.5 9 g 84 /min 98 % 98 % 98.1 [degF] 120 mm[Hg] 70 mm[Hg] Rigo Thomas CMA [facility] [employer] [facility] [employer] 10:45:23 Date Recorded Heart rate Respiratory rate Provider Wagner nataly and Address Organization Details Last Updated DateTime 06/14/2024 90 /min 15 /min Bernard Ma MD [address], [place], [address], [facility] [employer] 06/14/2024 11:20:36 Date Recorded Body height Body mass index (BMI) Body weight Body temperature Heart rate Oxygen saturation Oxygen saturation in Arterial blood by Pulse oximetry Systolic blood pressure Diastolic blood pressure Provider Name and Address Organization Details Last Updated DateTime 165.1 cm 29.8 kg/m2 78842.3 2 g 98.5 [degF] 90 /min 98 % 98 % 120 mm[Hg] 60 mm[Hg] Ruth Valdes MA [employer] [facility] [employer] 10:28:45 Social History Question Answer Notes LastModified by Organizat ion Details LastModified Time Tobacco Smoking Status Never Smoker Ruth Valdes MA null, [employer] [facility] [employer] 02/03/2024 12:04:52 What Is Your Level Of Caffeine Consumption? Moderate Information not available 02/03/2024 In The 14 Days Before Symptom Onset, Have You Had Close Contact With A Laboratory-confir med COVID-19 While That Case Was Ill? No Information not available 02/03/2024 In The 14 Days Before Symptom Onset, Have You Had Close Contact With A Person Who Is Under Investigation For COVID-19 While That Person Was Ill? No Information not available 02/03/2024 What Type Of Diet Are You Following? REGULAR Information not available 02/03/2024 Do You Have An Electrostatic Air Filter? No Information not available 02/03/2024 Are There Any Guns Present In Your Home? No Information not available 02/03/2024 Do You Have A Humidifier? No Information not available 02/03/2024 Where Do You Live? [facility] Information not available 02/03/2024 Do You Have Moisture Problems In Your Home? Yes Information not available 02/03/2024 What Was The Date Of Your Most Recent Tobacco Screening? 06/14/2024 Information not available 06/14/2024 How Many Children Do You Have? 1 Information not available 06/14/2024 Do You Have Any Pets? No Information not available 02/03/2024 What Is Your Relationship Status? Information not available 02/03/2024 Do You Use Your Seat Belt Or Car Seat Routinely? Yes Information not available 02/03/2024 Do You Have Smoke And Carbon Monoxide Detectors In Your Home? Yes Information not available 02/03/2024 Are You Passively Exposed To Smoke? No Information no t available 02/03/2024 Do You Use Sunscreen Routinely? No Information not available 06/14/2024 Have You Recently Traveled Abroad? No Information not available 02/03/2024 Sex: Unknown Functional Status Question Answer Note LastModified by Organizat ion Details LastModified Time Do you use any illicit or recreational drugs? No Information not available 02/03/2024 Do you or have you ever used any other forms of tobacco or nicotine? No Information not available 02/03/2024 What is your level of alcohol consumption? None Information not available 02/03/2024 Are you currently employed? No Information not available 02/03/2024 Have you been exposed to chemicals or toxins? No Not that aware of but did have mold and mild due problems Information not available 06/14/2024 What is your exercise level? Occasional Information not available 02/03/2024 Mental Status Question Answer Note LastModified by Organization D etails LastModified Time Do you feel stressed (tense, restless, nervous, or anxious, or unable to sleep at night)? [id number] Information not available 02/03/2024 Family History Relationship Description Onset Age of this Age Resolved Age Notes LastModified by Organization Details LastModified Time Sister Interstitial lung disease [id number] Not available 08/21/2022 23:28:27 Notes:NO ENT Medical History Condition Response COPD Y HYPERTENSION Y HIGH CHOLESTEROL / HYPERLIPIDEMIA Y Gynecological HistoryNo gynecological history recorded. Obstetrics History GPAL:G 0 P 0 0 0 0 Past Encounters Encounter ID Performer Location Encounter Start Date Encounter Closed Date Diagnosis/Indication Diagnosis SNOMED-CT Code Diagnosis ICD10 Code Diagnosis Note [id number] MD VELMA [facility] [address] 02/15/2021 00:00:00 02/15/2021 11:27:06 [id number] MD [facility]ELMA [facility] [address] [address] 02/28/2021 00:00:00 02/28/2021 12:11:29 [id number] MD VELMA [facility] [address] 02/03/2024 11:16:31 02/03/2024 16:39:36 Chronic cough 13592533 R05.3 R06.00 Multiple n odules of lung 942637777 R91.8 [id number] MD VELMA [facility] [address] 03/15/2024 10:01:32 03/16/2024 14:53:31 Multiple nodules of lung 816695870 R91.8 Chronic ob structive pulmonary disease 27766066 J44.9 [id number] MD VELMA [facility] [address] 06/14/2024 10:10:27 06/21/2024 11:38:40 Multiple nodules of lung 152200040 R91.8 Chronic ob structive pulmonary disease 85429747 J44.9 [id number] MD AIDEN [facility] [place] [address] [place] [address] 11/24/2024 15:56:33 11/25/2024 07:32:26 Bilateral earache 379670469 H92.03 Health Concerns Section Related Observation LastModified by Organization Detai ls LastModified Time None Recorded Concern Status LastModified by Organization Details LastModified Time None Recorded Advance Directives Directive None Recorded Payers Encounter Date Sequence Insurance Name Policy Number Policy Orellana Covered Member ID Orellana Member ID Guarantor Name 02/03/2024 1 [employer] (MEDICARE REPLACEMENT/ ADVANTAGE - PPO) [id number] Maryjo Alonso Virk [id number] Maryjo Alonso Virk 03/15/2024 1 [employer] (MEDICARE REPLACEMENT/ ADVANTAGE - PPO) [id number] Maryjo Alonso Virk [id number] Maryjo Alonso Virk 06/14/2024 1 [employer] (MEDICARE REPLACEMENT/ ADVANTAGE - PPO) [id number] Maryjo Alonso Virk [id number] Maryjo Alonso Virk 11/24/2024 1 [employer] (MEDICARE REPLACEMENT/ ADVANTAGE - PPO) [id number] Maryjo Alonso Virk [id number] Maryjo Caraballoios Notes Date Note Type Note Provider Name and Address Organization Details Recorded Time 02/03/2024 text/html Primary care/Ref erring provider: Rafa Conway is here to go over her cough and pulm nodules evaluation and management. Initial development of cough: uration of cough: 3 yearsNature of cough: non-productiveConditio n of cough: stableTiming of cough: morningFrequency: every 2 hours until noon, then after laying down at nightLimits activities: yesAggravating factors: exposure to housework chemicals, lying down at nightAlleviating factors: restingTreatment history:NoneOther symptoms:Wheezing: noChest tightness: yesOrthopnea: noFrequent throat clearing or swallowing: noPalpitations: yesDysphagia: noHeartburn: yesEdema: yesModified [employer] [place] (m[employer]C) Dyspnea Scale - Grade 1Grade 0 I only get breathless with strenuous exercise .Grade 1 I get short of breath when hurrying on the level or walking up a slight hill .Grade 2 I walk slower than people of the same age on the level because of breathlessness or have to stop for breath when walking at my own pace on the level .Grade 3 I stop for breath after walking about 100 yards or after a few minutes on the level .Grade 4 I am too breathless to leave the house or I am breathless when dressing .Environmental exposures:Nicotine smoke: noPaint: noDye: noDust mites: yesMold: yesDamp basement: noWood burning stove: noAnimal dander: noCockroaches: noPollen: yesArsenic: noAsbestos: noBeryllium: noCadmium: noChromium: noCoal smoke: noDiesel fumes: noNickel: noSilica: noSoot: noEPWORTH SLEEPINESS SCALE (ESS)CHANCE OF DOZING SCORE0 = would never doze1 = slight chance of dozing2 = moderate chance of dozing3 = high chance of dozingSITUATION AND CHANCE OF DOZINGSitting and reading - 2Watching television - 3Sitting inactive in a public place (e.g. a theater or meeting) - 2As a passenger in a car for an hour without a break - 3Lying down to rest in the afternoon when circumstances permit - 2Sitting and talking to someone - 0Sitting quietly after lunch without alcohol - 3In a car, while stopped for a few minutes in the traffic - 0TOTAL SCORE 15Subjectively, patient has a moderate chance of dozing. Bernard Ma MD [address] [place] [address], [place], [address], [facility] [employer] 02/03/2024 12:46:08 03/15/2024 text/html Primary care/Ref erring provider: SOL Conwayatijenny is here to go over her chest CT, 2-D echocardiogram and PFT as part of her cough and pulm nodules evaluation and management. Initial development of cough: uration of cough: 3 yearsNature of cough: non-productiveConditio n of cough: stableTiming of cough: morningFrequency: every 2 hours until noon, then after laying down at nightLimits activities: yesAggravating factors: exposure to housework chemicals, lying down at nightAlleviating factors: restingTreatment history:NoneOther symptoms:Wheezing: noChest tightness: yesOrthopnea: noFrequent throat clearing or swallowing: noPalpitations: yesDysphagia: noHeartburn: yesEdema: yesModified [employer] [place] (mMRC) Dyspnea Scale - Grade 1Grade 0 I only get breathless with strenuous exercise .Grade 1 I get short of breath when hurrying on the level or walking up a slight hill .Grade 2 I walk slower than people of the same age on the level because of breathlessness or have to stop for breath when walking at my own pace on the level .Grade 3 I stop for breath after walking about 100 yards or after a few minutes on the level .Grade 4 I am too breathless to leave the house or I am breathless when dressing .Environmental exposures:Nicotine smoke: noPaint: noDye: noDust mites: yesMold: yesDamp basement: noWood burning stove: noAnimal dander: noCockroaches: noPollen: yesArsenic: noAsbestos: noBeryllium: noCadmium: noChromium: noCoal smoke: noDiesel fumes: noNickel: noSilica: noSoot: noEPWORTH SLEEPINESS SCALE (ESS)CHANCE OF DOZING SCORE0 = would never doze1 = slight chance of dozing2 = moderate chance of dozing3 = high chance of dozingSITUATION AND CHANCE OF DOZINGSitting and reading - 3Watching television - 3Sitting inactive in a public place (e.g. a theater or meeting) - 0As a passenger in a car for an hour without a break - 3Lying down to rest in the afternoon when circumstances permit - 3Sitting and talking to someone - 0Sitting quietly after lunch without alcohol - 2In a car, while stopped for a few minutes in the traffic - 0TOTAL SCORE 14Subjectively, patient has a moderate chance of dozing. Bernard Ma MD [address] [facility], [facility] [address], [place], [address], [facility] [employer] 03/15/2024 13:47:09 06/14/2024 text/html Primary care/Ref erring provider: Robbin Hall MD CC: My cough is gone after the losartan was switched to amlodipine. I rarely use my albuterol HFA, maybe not even once a month.Patient is here to go over her COPD management. Initial development of cough: uration of cough: 3 yearsNature of cough: non-productiveConditio n of cough: stableTiming of cough: morningFrequency: every 2 hours until noon, then after laying down at nightLimits activities: yesAggravating factors: exposure to housework chemicals, lying down at nightAlleviating factors: restingTreatment history:NoneOther symptoms:Wheezing: noChest tightness: yesOrthopnea: noFrequent throat clearing or swallowing: noPalpitations: yesDysphagia: noHeartburn: yesEdema: yesModified [employer] [place] (mMRC) Dyspnea Scale - Grade 1Grade 0 I only get breathless with strenuous exercise .Grade 1 I get short of breath when hurrying on the level or walking up a slight hill .Grade 2 I walk slower than people of the same age on the level because of breathlessness or have to stop for breath when walking at my own pace on the level .Grade 3 I stop for breath after walking about 100 yards or after a few minutes on the level .Grade 4 I am too breathless to leave the house or I am breathless when dressing .Environmental exposures:Nicotine smoke: noPaint: noDye: noDust mites: yesMold: yesDamp basement: noWood burning stove: noAnimal dander: noCockroaches: noPollen: yesArsenic: noAsbestos: noBeryllium: noCadmium: noChromium: noCoal smoke: noDiesel fumes: noNickel: noSilica: noSoot: noEPWORTH SLEEPINESS SCALE (ESS)CHANCE OF DOZING SCORE0 = would never doze1 = slight chance of dozing2 = moderate chance of dozing3 = high chance of dozingSITUATION AND CHANCE OF DOZINGSitting and reading - 2Watching television - 3Sitting inactive in a public place (e.g. a theater or meeting) - 1As a passenger in a car for an hour without a break - 3Lying down to rest in the afternoon when circumstances permit - 0Sitting and talking to someone - 1Sitting quietly after lunch without alcohol - 0In a car, while stopped for a few minutes in the traffic - 0TOTAL SCORE 10Subjectively, patient has a moderate chance of dozing. Bernard Ma MD [address], [place], [address], [facility] 06/14/2024 11:21:04 11/24/2024 text/html this patient has had a one-week history of right ear pain which radiates down her neck. This has started on the left as well she was given Augmentin which did not help. She denies any hearing loss or vertigo there is no TMJ. Shyam Mccabe MD [address] [facility] [address], [place], [address], [facility] [employer] [facility] 11/24/2024 16:26:31 OBGyn Episode No OBEpisode recorded.
--- OUTSIDE RECORDS SUMMARY | 2024-11-26 09:59 | XMS_ITS | Clinical Summary ---
Author Organization [facility] Address [address] [place] [address] Care Team Providers Care Lifestyle Consultant Name Role Phone Renaldo Stiles MD Unavailable Javier Bone MD Unavailable [phone] Junior Gomes MD Unavailable Robbin Hall MD Primary Care Provider Source Comments [facility],non-owned Affiliates and Associated Physician Practices is amultiple site organization consisting of ambulatory clinics and hospital sitesin [place], [place], [place] and [place]. This disclosure is being madepursuant to the Care Everywhere program and may not contain all information available regarding this patient. Last updated 18.[facility] [employer] Allergies Active Allergy Reactions Criticality Noted Date Comments Losartan Potassium Cough Low 04/14/2024 Verapamil Swelling Medium 01/19/2009 Medications * Be aware that medications may not be up to date on this document. Alwaysverify current medications with the patient. vitamin D3 (CHOLECACIFEROL ) 5000 UNITS 1 tablet daily Ac tive ASPIRIN 81 PO aspirin Active topiramate (TOPAMAX) 100 MG tablet TK 1 T PO QD 3 9 Active atorvastatin (LIPITOR) 80 MG tablet Take 1 (one) tablet by mouth at bedtime Active ferrous sulfate 325 (65 FE) MG tablet ferrous sulfate 325 mg (65 mg iron) tablet 3 Active rizatriptan (Maxalt) 5 MG tabletIndicatio ns:Migraine without aura and without status migrainosus, not intractable Take 1 tab by mouth once at first sign of migraine. May repeat one time after 2 hours if needed. 9 tablet 3 3 Active ezetimibe (Zetia) 10 MG tablet TAKE 1 TABLET BY MOUTH EVERY DAY WITH ATORVASTATIN Active levothyroxine (Synthroid) 25 MCG tablet Take 1 (one) tablet by mouth once daily 4 Active ondansetron, disintegrating, (Zofran ODT) 8 MG tablet Take 1 (one) tablet by mouth 3 times daily as needed Active phentermine (Adipex-P) 37.5 MG capsule TAKE 1 CAPSULE BY MOUTH EVERY DAY TO LOSE WEIGHT Active SUMAtriptan (Imitrex) 20 MG/ACT nasal spray USE DIRECTED NEEDED FOR MIGRAINE. LIMIT TO TWICE DAILY 3 Active cyanocobalamin (Vitamin B-12) 1000 MCG tablet Take 1 (one) tablet by mouth once daily Active Probiotic Product (PROBIOTIC-10 PO) Active docusate sodium (Colace) 100 MG capsule Take 1 (one) capsule by mouth once daily Active trospium (Sanctura) 20 MG tablet Take 1 (one) tablet by mouth 2 times daily 4 Active triamcinolone acetonide (Kenalog) 0.5 % cream APPLY TOPICALLY 2 TIMES A DAY USE NEEDED FOR ITCHING 4 Active sertraline (Zoloft) 25 MG tablet Take 1 (one) tablet by mouth once daily 4 Active permethrin (Elimite) 5 % cream APPLY FROM NECK DOWN TO SOLE OF FEET, WASH OFF AFTER AT LEAST 8 HOURS, REPEAT IN 14 DAYS IF NEEDED 4 Active albuterol HFA (Proventil; Ventolin; Proair) 108 (90 Base) MCG/ACT inhaler INHALE 1 PUFF EVERY 4 HOURS NEEDED Active pantoprazole EC (Protonix) 40 MG tablet Take 1 (one) tablet by mouth every morning Active Wegovy 0.25 MG/0.5ML pen Wegovy 0.25 mg/0.5 mL pen injector 5 Active amLODIPine (Norvasc) 10 MG tablet Take 1 (one) tablet by mouth once daily Active meloxicam (Mobic) 15 MG tablet Take 1 (one) tablet by mouth once daily 90 tablet 1 5 Active Active Problems Problem Noted Date Diagnosed Date Low back pain 12/08/2012 Encounters Date Type Department Care Team Description 09/27/2024 10:20 AM CDT Office Visit [facility] - Rheumatology [address] [place] [address] Zayra Agosto MD Primary osteoarthritis of both knees (Primary Dx); Primary osteoarthritis of both hands; Encounter for therapeutic drug monitoring; Encounter for long-term (current) use of high-risk medication 09/27/2024 Travel from Last 3 Months Family History Medical History Relation Name Comments CAD (Coronary Artery Disease) Father CAD (Coronary Artery Disease) Mother Relation Name Status Comments Father Mother Social History Tobacco Use Types Packs/Day Years Used Date Smoking Tobacco: Never Smokeless Tobacco: Never Tobacco Cessation:Counseling Given: Not Answered Alcohol Use Standard Drinks/Week Comments Yes 0 (1 standard drink = 0.6 oz pur e alcohol) AUDIT-C Answer Date Recorded Frequency of Alcohol Consumption Monthly or less 05/10/2019 Average Number of Drinks Not on file 019 Frequency of Binge Drinking Not on file 04/23 PHQ-2 Answer Date Recorded Patient Health Questionnaire-2 Score 0 02/26/2023 Comments No Sex and Gender Information Value Date Recorded Sex Assigned at Female 11/08/2022 11:52 PM CDT Legal Sex Female 4:13 PM CDT Gender Identity Female 11/08/2022 11:52 PM CDT Sexual Orientation Straight 11/08/2022 11 :52 PM CDT Last Filed Vital Signs Vital Sign Reading Time Taken Comments Blood Pressure 106/78 09/27/2024 10:16 AM CDT Pulse 70 09/27/2024 10:16 AM CDT Temperature 37.2 C (98.9 F) 09/27/2024 10:16 AM CDT Respiratory Rate 16 06/21/2017 11:19 AM DEVELOPMENT REP Oxygen Saturation 95% 09/27/2024 10:16 AM CDT Inhaled Oxygen Concentration - - Weight 83.6 kg (184 lb 3.2 oz) 09/27/2024 10:16 AM CDT Height 165.1 cm (5' 5) 07/06/2024 9:55 AM DEVELOPMENT REP Body Mass Index 30.65 07/06/2024 9:55 AM DEVELOPMENT REP Plan of Treatment Health Maintenance Due Date Last Done Comments COLOGUARD (AGES 45-75) - COLON CA SCREENING 1957 COLON MONITORING 1957 COLONOSCOPY - COLON CA SCREENING 1957 CT COLONOGRAPHY - COLON CA SCREENING 1957 Colorectal Cancer Screening 1957 FIT - COLON CA SCREENING 1957 FLEX SIG - COLON CA SCREENING 1957 DTAP/TDAP/TD VACCINES (1 - Tdap) 1976 PNEUMOCOCCAL VACCINE 50+ (1 of 1 - PCV) 2007 ZOSTER VACCINE (1 of 2) 2007 Respiratory Syncytial Virus (RSV) Vaccine Pt: or over 60 yrs (1 - Risk 60-74 years 1-dose series) 2017 MAMMOGRAM 01/12/2023 01/12/2021, 07/08/2020, 01/12/2021, Additional history exists COVID-19 VACCINE ( - season) 2024 DEPRESSION SCREENING 06/23/2024 02/26/2023 MEDICARE AWV CALENDAR YEAR 2024 INFLUENZA VACCINE (Season Ended) 2025 SCREENING FOR DIABETES 09/28/2027 , 11/10/2023, 11/01/2022, Additional history exists BONE DENSITY TESTING Completed 08/18/2013 HEPATITIS C SCREENING Completed 11/10/2023 HEPATITIS B VACCINE Aged Out No longe r eligible based on patient's age to complete this topic HIB VACCINE Aged Out No longer eligi ble based on patient's age to complete this topic HPV VACCINE Aged Out No longer eligi ble based on patient's age to complete this topic MENINGOCOCCAL (Group B) VACCINE SHARED DECISION-MAKING Aged Out No longer eligible based on patient's age to complete this topic MENINGOCOCCAL GROUPS A/C/Y/W VACCINE Aged Out No longer eligible based on patient's age to complete this topic Procedures Procedure Name Priority Date/Time Associated Diagnosis Comments URINALYSIS W/MICROSCOPIC REFLEX TO CULTURE Routine 09/27/2024 11:19 AM CDT Primary osteoarthritis of both knees Primary osteoarthritis of both hands Encounter for therapeutic drug monitoring Encounter for long-term (current) use of high-risk medication ERYTHROCYTE SEDIMENTATION RATE Routine 09/27/2024 11:19 AM CDT Primary osteoarthritis of both knees Primary osteoarthritis of both hands Encounter for therapeutic drug monitoring Encounter for long-term (current) use of high-risk medication C-REACTIVE PROTEIN Routine 09/27/2024 11 :19 AM CDT Primary osteoarthritis of both knees Primary osteoarthritis of both hands Encounter for therapeutic drug monitoring Encounter for long-term (current) use of high-risk medication COMPREHENSIVE METABOLIC PANEL Routine 09/27/2024 11:19 AM CDT Primary osteoarthritis of both knees Primary osteoarthritis of both hands Encounter for therapeutic drug monitoring Encounter for long-term (current) use of high-risk medication CBC W AUTO DIFFERENTIAL Routine 09/27/2024 11:19 AM CDT Primary osteoarthritis of both knees Primary osteoarthritis of both hands Encounter for therapeutic drug monitoring Encounter for long-term (current) use of high-risk medication CULTURE URINE 09/27/2024 11:19 AM CDT CULTURE URINE REFLEXED II 09/27/2024 11:19 AM CDT HEPATITIS C ANTIBODY W RFLX PCR Routine 11/10/2023 11:56 AM CDT Polyarthralgia Other fatigue Myalgia from Last 3 Months or Most Recently Relevant to Health Maintenance Results * CULTURE URINE REFLEXED II (09/27/2024 11:19 AM CDT) Reflexive Urine Culture See Below [facility] Comment: CULTURE INDICATED - RESULTS TO FOLLOW Test Performed at: [email or web address] [address] GABRIELLA PORTILLO MD 09/27/2024 11:1 9 AM CDT 09/27/2024 11:19 AM CDT us Zayra Agosto MD LAB - MICROBIOLOGY ORD ERABLES Final Result Performing Organization Address [facility] Co de Phone Number [address] [address] * (ABNORMAL) URINALYSIS W/MICROSCOPIC REFLEX TO CULTURE (09/27/2024 11:19 AM CDT) Color UA YELLOW YELLOW [facility] Appearance CLEAR CLEAR [facility] Specific Wever UA 1.009 1.001 - 1.035 [facility] pH UA < OR = 5.0 5.0 - 8.0 [facility] Glucose UA NEGATIVE NEGATIVE [facility] Bilirubin UA NEGATIVE NEGATIVE [facility] Ketone UA NEGATIVE NEGATIVE [facility] Blood UA NEGATIVE NEGATIVE [facility] Protein UA NEGATIVE NEGATIVE [facility] Nitrite NEGATIVE NEGATIVE [facility] Leukocyte Esterase 1+(A) NEGATIVE [facility] WBC UA 0-5 < OR = 5 /HPF [facility] RBC UA NONE SEEN < OR = 2 /HPF [facility] Epithelial Cell UA NONE SEEN < OR = 5 /HPF [facility] Bacteria UA NONE SEEN NONE SEEN /HPF [facility] Hyaline Casts NONE SEEN NONE SEEN /LPF [facility] Note See Below [facility] Comment: This urine was analyzed for the presence of WBC, RBC, bacteria, casts, and other formed elements. Only those elements seen were reported. Test Performed at: [email or web address] [address] GABRIELLA PORTILLO MD Urine MID-STREAM URINE SPECIMEN / Unknown 09/27/2024 11:19 AM CDT 09/27/2024 11:19 AM CDT Zayra Agosto MD LAB - URINALYSIS ORDER DOMINIQUE Final Result Performing Organization Address [facility] Co de Phone Number [address] [address] * C-REACTIVE PROTEIN (09/27/2024 11:19 AM CDT) C-Reactive Protein <5.0 <8.0 mg/L [facility] Comment: Test Performed at: [email or web address] [address] GABRIELLA PORTILLO MD Blood BLOOD SPECIMEN / Unknown 09/27/2024 11:19 AM CDT 09/27/2024 11:19 AM CDT Zayra Agosto MD LAB - CHEMISTRY ORDERA BLES Final Result Performing Organization Address [facility] Co de Phone Number [place] [phone] * CULTURE URINE (09/27/2024 11:19 AM CDT) Pathologist [facility] Culture [facility] Comment: CULTURE, URINE, ROUTINE Micro Number: [id number] Test Status: Final Specimen Source: Urine Specimen Quality: Adequate Result: No Growth Test Performed at: [address] [address] GABRIELLA PORTILLO MD 09/27/2024 11:1 9 AM CDT 09/27/2024 11:19 AM CDT Zayra Agosto MD LAB - MICROBIOLOGY ORD ERABLES Final Result Performing Organization Address [facility] [place] [place] [address] * ERYTHROCYTE SEDIMENTATION RATE (09/27/2024 11:19 AM CDT) [facility] Erythrocyte Sedimentation Rate Westergren 8 < OR = 30 mm/h [facility] Comment: Test Performed at: [address] [address] GABRIELLA PORTILLO MD Blood BLOOD SPECIMEN / Unknown 09/27/2024 11:19 AM CDT 09/27/2024 11:19 AM CDT Zayra Agosto MD LAB - HEMATOLOGY ORDER DOMINIQUE Final Result Performing Organization Address City/[facility]/[place] [address] * (ABNORMAL) CBC WITH DIFFERENTIAL (09/27/2024 11:19 AM CDT) [facility] White Blood Cell Count 8.3 3.8 - 10.8 Thousand/ uL [facility] RBC 4.95 3.80 - 5.10 Million/u L [facility] Hemoglobin 14.5 11.7 - 15.5 g/dL [facility] Hematocrit 46.0(H) 35.0 - 45.0 % [facility] MCV 92.9 80.0 - 100.0 fL [facility] MCH 29.3 27.0 - 33.0 pg [facility] MCHC 31.5(L) 32.0 - 36.0 g/dL [facility] Comment: For adults, a slight decrease in the calculated MCHC value (in the range of 30 to 32 g/dL) is most likely not clinically significant; however, it should be interpreted with caution in correlation with other red cell parameters and the patient's clinical condition. RDW 12.6 11.0 - 15.0 % [facility] Platelet Count 248 140 - 400 Thousand/ uL [facility] MPV 11.4 7.5 - 12.5 fL [facility] Neutrophil Absolute 4972 1500 - 7800 cells/uL [facility] Lymphocytes Absolute 2357 850 - 3900 cells/uL [facility] Absolute Monocytes 772 200 - 950 cells/uL [facility] Eosinophils Absolute 141 15 - 500 cells/uL [facility] Basophils Absolute 58 0 - 200 cells/uL [facility] Granulocytes % 59.9 % [facility] Lymphocytes % 28.4 % [facility] Monocytes % 9.3 % [facility] Eosinophils % 1.7 % [facility] Basophils % 0.7 % [facility] Comment: Test Performed at: [email or web address] [address] GABRIELLA PORTILLO MD Blood BLOOD SPECIMEN / Unknown 09/27/2024 11:19 AM CDT 09/27/2024 11:19 AM CDT Zayra Agosto MD LAB - HEMATOLOGY ORDER DOMINIQUE Final Result [address] [address] * COMPREHENSIVE METABOLIC PANEL (09/27/2024 11:19 AM CDT) [facility] Glucose 91 65 - 99 mg/dL [facility] Comment: Fasting reference interval BUN 10 7 - 25 mg/dL [facility] Creatinine 0.81 0.50 - 1.05 mg/dL [facility] eGFR by Cystatin C 80 > OR = 60 mL/min/1. 73m2 [facility] BUN/Creatinine Ratio SEE NOTE: 6 - 22 (calc) [facility] Comment: Not Reported: BUN and Creatinine are within reference range. Sodium 138 135 - 146 mmol/L [facility] Potassium 4.7 3.5 - 5.3 mmol/L [facility] Chloride 105 98 - 110 mmol/L [facility] CO2 25 20 - 32 mmol/L [facility] Calcium 9.3 8.6 - 10.4 mg/dL [facility] Protein Total 7.0 6.1 - 8.1 g/dL [facility] Albumin 4.6 3.6 - 5.1 g/dL [facility] Globulin Total 2.4 1.9 - 3.7 g/dL (calc) [facility] Albumin/Globulin Ratio 1.9 1.0 - 2.5 (calc) [facility] Bilirubin Total 0.6 0.2 - 1.2 mg/dL [facility] Alkaline Phosphatase 86 37 - 153 U/L [facility] AST 26 10 - 35 U/L [facility] ALT 25 6 - 29 U/L [facility] Comment: Test Performed at: [email or web address] [address] GABRIELLA PORTILLO MD Blood BLOOD SPECIMEN / Unknown 09/27/2024 11:19 AM CDT 09/27/2024 11:19 AM CDT Zayra Agosto MD LAB - CHEMISTRY ORDERA BLES Final Result Performing Organization Address City/[facility]/ZIP Co de Phone Number [address] [address] * HEPATITIS C ANTIBODY W RFLX PCR (11/10/2023 11:56 AM CDT) Hepatitis C Antibody Non Reactive Non Reactive 11/13/2023 10:07 PM CDT [facility]) Blood BLOOD SPECIMEN / Unknown Lab Venipuncture / Unknown 11/10/2023 11:56 AM CDT 11/10/2023 2:58 PM CDT Narrative [facility] ([facility]) - 11/13/2023 10:07 PM CDT Performed at: [address] [place] [id number] Glazier Apprentice: Ricardo Valverde PhD, Phone: [phone] Zayra Agosto MD LAB - CHEMISTRY ORDERA BLES Final Result [facility]) [address] [place] [address], [facility] from Last 3 Months or Most Recently Relevant to Health Maintenance Insurance AET AET MEDICARE ADV AETNA MEDIC[place] [facility] [place] Documents on File Type Date Recorded Patient Operations Trainer Expl anation Adv Directive/Living Will/POA 11/10/2023 Care Teams Lifestyle Consultant Relationship Specialty Start Date End Date Robbin Hall MD [address] [place] [address] PCP - General Family Medicine 11/06/22 Renaldo Stiles MD Internal Medicine 04/11/16 [place] [address] [address] [address] Anesthesiology-Pain Management 02/18/13 Junior Gomes MD [address] [place] [address] Resident - PCP Internal Medicine 05/10/19
--- OUTSIDE RECORDS SUMMARY | 2024-11-26 09:59 | XMS_ITS | Clinical Summary ---
Author Organization [facility] Address [address] [place] [address] Care Team Providers Care Waiter/Waitress Captain Name Role Phone Robbin Hall MD Primary Care Provider Allergies No known active allergies Medications atorvastatin (LIPITOR) 80 mg tablet Take 80 mg by mouth daily. Active cholecalciferol , vitamin D3, 5,000 unit Take 5,000 Units by mouth daily. Active omeprazole (PriLOSEC) 40 mg Capsule, Delayed Release(E.C.) 1 Active prochlorperazin e maleate (COMPAZINE) 10 mg tablet Take 10 mg by mouth. PRN 1 Active sertraline (ZOLOFT) 100 mg tablet Take 100 mg by mouth daily. Active semaglutide (Ozempic) 1 mg/dose (4 mg/3 mL) Pen Injector Inject by subcutaneous injection. Active ezetimibe (Zetia) 10 mg tablet Take 10 mg by mouth daily. 3 Active losartan (COZAAR) 50 mg tablet Take 50 mg by mouth daily. 3 Active topiramate (TOPAMAX) 100 mg tabletIndicatio ns:Chronic migraine without aura, not intractable, without status migrainosus Take 1 Tablet (100 mg) by mouth daily. 90 Tablet 3 3 Active SUMAtriptan (IMITREX) 20 mg/actuation [place], Non-AerosolIndi cations:Chronic migraine without aura, not intractable, without status migrainosus USE DIRECTED NEEDED FOR MIGRAINE. 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 Gastroesophageal reflux disease 10/04/2010 Encounters Date Type Department Care Team Description 09/15/2024 [facility] Neurology [address] [address] Head, [place] Sharpe MD Chronic migraine without aura, not intractable, without status migrainosus from Last 3 Months Family History Medical History Relation Name Comments Heart Disease Father Heart Disease Mother Relation Name Status Comments Father Mother Social History Tobacco Use Types Packs/Day Years Used Date Smoking Tobacco: Never Smokeless Tobacco: Never Tobacco Cessation:Counseling Given: Not Answered Alcohol Use Standard Drinks/Week Comments Not Currently 0 (1 standard drink = 0.6 oz pur e alcohol) Comments Unknown Sex and Gender Information Value Date Recorded Sex Assigned at Female 03/30/2024 7:49 PM CDT Legal Sex Female 5:11 AM CREEL CLERK Gender Identity Female 03/30/2024 7:49 PM CDT Sexual Orientation Straight 03/30/2024 7: 49 PM CDT Last Filed Vital Signs Vital Sign Reading Time Taken Comments Blood Pressure 133/95 03/20/2023 11:27 AM CDT Pulse 86 03/20/2023 11:27 AM CDT Temperature 35.7 C (96.3 F) 03/13/2022 11:44 AM CDT Respiratory Rate 16 03/13/2021 11:39 AM CDT Oxygen Saturation 96% 03/13/2022 11:44 AM CDT Inhaled Oxygen Concentration - - Weight 81.6 kg (180 lb) 03/20/2023 11:27 AM CDT Height 165.1 cm (5' 5) 03/20/2023 11:27 AM CDT Body Mass Index 29.95 03/20/2023 11:27 AM CDT Plan of Treatment Health Maintenance Due Date Last Done Comments DTAP/TDAP/TD VACCINES (1 - Tdap) 1976 COLORECTAL SCREENING 2002 Colorectal Cancer Screening 2002 FIT-DNA Q 3 years 2002 FIT/FOBT Q 1 year 2002 Flex Sig/CT Colonography Q 5 years 2002 PNEUMOCOCCAL VACCINE 50+ YEA RS (1 of 1 - PCV) 2007 ZOSTER VACCINE (1 of 2) 2007 BREAST CANCER SCREENING 01/12/2022 01/13/20, 01/12/2021, 01/25/2019, Additional history exists OSTEOPOROSIS SCREENING 2022 08/18/2013 INFLUENZA VACCINE (#1) 2024 RSV VACCINE (60+ or ) (1 - 1-dose 75+ series) 2032 Insurance Care Teams Waiter/Waitress Captain Relationship Specialty Start Date End Date Robbin Hall MD [address] [place] [address] PCP - General Family Practice 03/13/21
--- OUTSIDE RECORDS SUMMARY | 2024-11-26 09:59 | XMS_ITS | CONTINUITY OF CARE DOCUMENT ---
Author Name allan lemus Address Unknown Organization [facility] Address [address] [place] [address] Phone [phone] Care Team Providers Care Table Games Dealer Name Role Phone Dereje Steinberg MD Unavailable Robbin Hall MD Unavailable Robbin Hall MD Unavailable PROBLEMS Condition Status Date Provider Notes fatty liver active Dereje Steinberg MD IRON DEFICIENCY active Dereje Steinberg MD Pulmonary nodules active Dereje Steinberg MD PVD; active Dereje Steinberg MD Hyperlipidemia;NEG CRP;and lpa 82 active Dereje Steinberg MD CHEST TIGHTNESS-09/29 CATH MILD PUL HTN NL KRIS EF 35 active - Dereje Steinberg MD HYPERCHOLESTEROLEMIA; completed - HTN ESSENTIAL;LABS PER PRIMARY; completed - Dereje Steinberg MD CAD;NML COR ANGIO 09, ABNL NUC 09, NML STRESS 13 completed - Dereje Steinberg MD EDEMA:DUE TO CALAN IN PAST completed - Dereje Steinberg MD PALPITATIONS active - Dereje Steinberg MD HX OF PALPITATIONS AND DIZZINESS;NML TSH, NEG EVENT completed - Dereje Steinberg MD Diastolic dysfunction active Dereje Steinberg MD 35% lowest 2008 with normal cors on cath FATIGUE completed - Dereje Steinberg MD HYPOKALEMIA;NML 6/ completed - Dereje Steinberg MD Cough due to YANIRA inhibitors active Dereje Steinberg MD DVT;NEG VD completed - Dereje Steinberg MD Obesity active Dereje Steinberg MD coudl no t afford ozempcie CHEST PAIN, ATYPICAL;WILL PITTMAN completed - Dereje Steinberg MD GERD active Dereje Steinberg MD GALLSTONES;NEG US 11 completed - Dereje Steinberg MD HX OF MICROVASCULAR ANGINA;ECP NOT HELPFU completed - Dereje Steinberg MD CEREBROVASCULAR DISEASE;SMALL VESSEL BY MRI 2012,NEG DUPLEX amd cta active Dereje Steinberg MD TRICUSPID REGURGITATION, MILD;PAP 26 2012 completed - Dereje Steinberg MD VITAMIN D DEFICIENCY;ON RX active Dereje Steinberg MD FATIGUE;STOPPING COREG HELPED SOME completed - Dereje Steinberg MD HYPERTRIGLYCERIDEMIA;ON RX completed - Dereje Steinberg MD HX OF Hypertriglyceridemia;WILL SEE HOW SHE DOES OFF NIASPAN completed - Dereje Steinberg MD ? Sleep apnea completed - eDreje Steinberg MD PREDIABETES; active Dereje Steinberg MD Screening active Dereje Steinberg MD neg hep panle and socre zero Migraine headache active Dereje Steinberg MD Exposure to COVID-19 coronavirus;had vaccine active Nikki Pedro NP Spleen disorder;granuloma active Dereje gaming MD Shortness of breath- per 09/19/08 OV completed - Dereje Steinberg MD Long-term (current) use of other medications completed - Dereje Steinberg MD Prehypertension completed - Dereje Steinberg MD Sciatica active Dereje Steinberg MD Valvular heart disease completed - Dereje Steinberg MD HYPERTENSION active Dereje Steinberg MD did no t want rpm Syncope active Dereje Steinberg MD Neuropathy active Dereje Steinberg MD SVT;tsh on rx active Dereje Steinberg MD did n ot want loope BMI 30-30.9 adult completed - Dereje Steinberg MD COPD active Dereje Steinberg MD non smok er per dr sanchez IBS (irritable bowel syndrome) active Dereje Steinberg MD Hiatal hernia active Dereje Steinberg MD BACK PAIN;CHRONIC active Dereje Steinberg MD ENCOUNTERS Date Type Provider Location Encounter Diag nosis 08/26 - 08/26 In-person encounter Office Visit Dereje Steinberg MD [facility] - In-person encounter Office Visit Dereje Steinberg MD [facility] SVT;tsh on rxBMI 30-30.9 adultCOPDIBS (irritable bowel syndrome)Hiatal herniaBACK PAIN;CHRONIC 09/02 - 09/02 In-person encounter Office Visit Dereje Steinberg MD [facility] ScreeningNeuropathySVT;tsh on rx 07/07 - 07/07 In-person encounter Office Visit Dereje Steinberg MD [facility] PREDIABETES;Valvular heart diseaseHYPERTENSIONSVT;tsh on rx 03/19 - 03/19 In-person encounter Office Visit Dereje Steinberg MD [facility] ObesityScreeningHYPERTENSIONSyncopeNeuro anca 07/25 - 07/25 In-person encounter Office Visit Dereje Steinberg MD [facility] FATIGUEObesityShortness of breath- per OVLong-term (current) use of other medicationsPrehypertensionSciatica 08/21 - 08/21 In-person encounter Office Visit Dereje Steinberg MD [facility] 02/08 - 02/08 In-person encounter Office Visit Dereje Steinberg MD [facility] FATIGUESpleen disorder;granuloma 01/17 - 01/17 In-person encounter Office Visit Dereje Steinberg MD [facility] 12/07 - 12/07 In-person encounter Office Visit Dereje Steinberg MD [facility] Exposure to COVID-19 coronavirus;had vac cine 08/09 - 08/09 In-person encounter Office Visit Dereje Steinberg MD [facility] Obesity 06/27 - 06/27 In-person encounter Office Visit Dereje Steinberg MD [facility] Diastolic dysfunctionCough due to YANIRA inhibitorsPREDIABETES; 06/30 - 06/30 In-person encounter Office Visit Dereje Steinberg MD [facility] 07/09 - 07/09 In-person encounter Office Visit Dereje Steinberg MD [facility] HX OF PALPITATIONS AND DIZZINESS;NML TSH , NEG EVENTDiastolic dysfunctionHX OF MICROVASCULAR ANGINA;ECP NOT HELPFUScreeningMigraine headache 07/08 - 07/08 In-person encounter Office Visit Dereje Steinberg MD [facility] CAD;NML COR ANGIO 09, ABNL NUC 09, NML S TRESS 13DVT;NEG VDObesityGALLSTONES;NEG US 11? Sleep apnea 09/11 - 09/11 In-person encounter Office Visit Dereje Steinberg MD [facility] 09/06 - 09/06 In-person encounter Office Visit Dereje Steinberg MD [facility] Diastolic dysfunctionFATIGUE;STOPPING CO REG HELPED SOMEHX OF Hypertriglyceridemia;WILL SEE HOW SHE DOES OFF NIASPAN 08/25 - 08/25 In-person encounter Office Visit Dereje Steinberg MD [facility] HYPERCHOLESTEROLEMIA;Diastolic dysfunctionTRICUSPID REGURGITATION, MILD;PAP 26 2012HYPERTRIGLYCERIDEMIA;ON RX 01/12 - 01/19 In-person encounter Office Visit Dereje Steinberg MD [facility] 08/19 - 08/19 In-person encounter Office Visit Dereje Steinberg MD [facility] HTN ESSENTIAL;LABS PER PRIMARY;HX OF PALPITATIONS AND DIZZINESS;NML TSH, NEG EVENTObesity 07/19 - 07/28 In-person encounter Office Visit Dereje Steinberg MD [facility] - In-person encounter Office Visit Dereje Steinberg MD [facility] 01/14 - 01/14 In-person encounter Office Visit Dereje Steinberg MD [facility] HX OF PALPITATIONS AND DIZZINESS;NML TSH , NEG EVENTHX OF MICROVASCULAR ANGINA;ECP NOT HELPFUFATIGUE;STOPPING COREG HELPED SOME 11/11 - 11/11 In-person encounter Office Visit Dereje Steinberg MD [facility] 10/01 - 10/01 In-person encounter Office Visit Dereje Steinberg MD [facility] HTN ESSENTIAL;LABS PER PRIMARY;HX OF PALPITATIONS AND DIZZINESS;NML TSH, NEG EVENTDiastolic dysfunctionCough due to YANIRA inhibitorsObesityCEREBROVASCULAR DISEASE;SMALL VESSEL BY MRI 2012,NEG DUPLEX amd ctaVITAMIN D DEFICIENCY;ON RX 09/14 - 09/14 In-person encounter Office Visit Dereje Steinberg MD [facility] Office HYPERCHOLESTEROLEMIA;HX OF PALPITATIONS AND DIZZINESS;NML TSH, NEG EVENTObesityHX OF MICROVASCULAR ANGINA;ECP NOT HELPFU 10/30 - 10/30 In-person encounter Office Visit Dereje Steinberg MD [facility] Diastolic dysfunctionCough due to YANIRA inhibitorsCHEST PAIN, ATYPICAL;WILL PITTMAN 10/04 - 10/04 In-person encounter Office Visit Dereje Steinberg MD [facility] CHEST TIGHTNESS-09/29 CATH MILD PUL HTN N L KRIS EF 35HYPERCHOLESTEROLEMIA;HTN ESSENTIAL;LABS PER PRIMARY;CAD;NML COR ANGIO 09, ABNL NUC 09, NML STRESS 13Diastolic dysfunctionObesityGERDGALLSTONES;NEG US 11 07/13 - 07/13 In-person encounter Office Visit Dereje Steinberg MD [facility] Diastolic dysfunction - In-person encounter Office Visit Dereje Steinberg MD [facility] HTN ESSENTIAL;LABS PER PRIMARY;CAD;NML C OR ANGIO 09, ABNL NUC 09, NML STRESS 13Cough due to YANIRA inhibitors 01/19 - 01/19 In-person encounter Office Visit Dereje Steinberg MD [facility] HYPERCHOLESTEROLEMIA;HX OF PALPITATIONS AND DIZZINESS;NML TSH, NEG EVENTDiastolic dysfunctionFATIGUECough due to YANIRA inhibitors 10/20 - 10/20 In-person encounter Office Visit Dereje Steinberg MD [facility] HYPERCHOLESTEROLEMIA;CAD;NML COR ANGIO 0 9, ABNL NUC 09, NML STRESS 13PALPITATIONSHX OF PALPITATIONS AND DIZZINESS;NML TSH, NEG EVENTDiastolic dysfunctionHYPOKALEMIA;NML 11/29 - 09/19 In-person encounter Office Visit Dereje Steinberg MD [facility] Office CHEST TIGHTNESS-09/29 CATH MILD PUL HTN N L KRIS EF 35HYPERCHOLESTEROLEMIA;HTN ESSENTIAL;LABS PER PRIMARY;CAD;NML COR ANGIO 09, ABNL NUC 09, NML STRESS 13EDEMA:DUE TO CALAN IN PAST VITAL SIGNS Date Observation Value Provider Body Mass Index (Ratio) 30.95 kg/m2 Lei Steinberg MD blood pressure, diastolic 82 mm[Hg] Priyanka Degroot blood pressure, systolic 115 mm[Hg] Tanvi Degroot oxygen saturation, oximetry 97 % Meysha Degroot pulse rate 80 /min Myesha Degroot respiratory rate E&M 12 /min Myesha Degroot weight E&M 186 [lb_av] Myesha Degroot height E&M 65 [in_i] Myesha Degroot blood pressure, cuff size regular Priyanka Degroot Body Mass Index (Ratio) 30.05 kg/m2 Lei Steinberg MD blood pressure, diastolic 81 mm[Hg] Manoj mann León blood pressure, systolic 112 mm[Hg] Anita lopez León blood pressure, cuff size regular Manoj mackenzie León oxygen saturation, oximetry 98 % [facility] pulse rate 82 /min [facility] Le[facility] weight E&M 180.6 [lb_av] [facility] Le[facility] height E&M 65 [in_i] [facility] León Body Mass Index (Ratio) 30.78 kg/m2 Lei Steinberg MD blood pressure, cuff size regular rret blood pressure, diastolic 84 mm[Hg] Ja rret blood pressure, systolic 126 mm[Hg] Jar ret pulse rate 76 /min Leo er y oxygen saturation, oximetry 98 % Leo respiratory rate E&M 16 /min Leo weight E&M 185 [lb_av] Leo erda y height E&M 65 [in_i] Leo er y Body Mass Index (Ratio) 31.61 kg/m2 Lei Steinberg MD blood pressure, cuff size regular Ja rret blood pressure, diastolic 96 mm[Hg] Ja rret blood pressure, systolic 138 mm[Hg] Jar ret pulse rate 79 /min Leo erda y respiratory rate E&M 12 /min Leo oxygen saturation, oximetry 100 % Leo weight E&M 190 [lb_av] Leo Easterda y height E&M 65 [in_i] Leo Tomlinson y Body Mass Index (Ratio) 30.45 kg/m2 Lei Steinberg MD blood pressure, diastolic 98 mm[Hg] Jimy Amaro blood pressure, systolic 145 mm[Hg] She jona Amaro pulse rate 85 /min Nikki Amaro oxygen saturation, oximetry 98 % Nikki Amaro respiratory rate E&M 18 /min Nikki Amaro weight E&M 183 [lb_av] Nikki Amaro blood pressure, cuff size regular lanny Amaro height E&M 65 [in_i] Nikki Amaro weight E&M 172 [lb_av] Dereje La D Body Mass Index (Ratio) 29.45 kg/m2 Lei Steinberg MD blood pressure, diastolic 84 mm[Hg] Sa ra Caraballo blood pressure, systolic 129 mm[Hg] Yamilka a Caraballo oxygen saturation, oximetry 99 % Shwehta Caraballo respiratory rate E&M 18 /min Shwetha Si ms pulse rate 87 /min Shwetha Caraballo blood pressure, cuff size regular Sa ra Caraballo weight E&M 177 [lb_av] Shwetha Caraballo height E&M 65 [in_i] Shwetha Caraballo Body Mass Index (Ratio) 29.62 kg/m2 Lei Steinberg MD blood pressure, cuff size large Ke rri Koreyuenelaureeldjordin blood pressure, diastolic 70 mm[Hg] Ke rri Gruenenfelder blood pressure, systolic 102 mm[Hg] Laurel Cruz oxygen saturation, oximetry 98 % Alie Cruz respiratory rate E&M 16 /min Alie G mihaela pulse rate 75 /min Alie Nairjadon lder weight E&M 178 [lb_av] Alie Shea lder height E&M 65 [in_i] Alie Valdivia er Body Mass Index (Ratio) 29.28 kg/m2 Lei Steinberg MD blood pressure, cuff size regular Cy gabriela Carranza blood pressure, diastolic 64 mm[Hg] Cy ntmariluz Carranza blood pressure, systolic 124 mm[Hg] Lynn pritesh Carranza pulse rate 86 /min Cintia Campbel l oxygen saturation, oximetry 96 % Cintia Carranza respiratory rate E&M 16 /min Cintia Carranza weight E&M 176 [lb_av] Cintia Campbel l height E&M 65 [in_i] Cintia Campbel l Body Mass Index (Ratio) 28.29 kg/m2 Lei Steinberg MD blood pressure, diastolic 70 mm[Hg] Margaux nkLogjanet blood pressure, systolic 116 mm[Hg] Lashae kLog blood pressure, resting No Jaswant jono Chalino blood pressure, diastolic 70 mm[Hg] [facility] Surgery[facility]gerio Allred blood pressure, systolic 116 mm[Hg] [facility] Campusirenarogerio Chalino pulse rate 79 /min Sherjono Devon stoner oxygen saturation, oximetry 98 % Danae Allred respiratory rate E&M 18 /min Evaristo Allred weight E&M 170 [lb_av] Sherpuraitha Craw stoner height E&M 65 [in_i] Sherpuraitha Devon stoner Body Mass Index (Ratio) 29.95 kg/m2 Lei Steinberg MD blood pressure, diastolic 74 mm[Hg] Cy gabriela Carranza blood pressure, systolic 125 mm[Hg] Lynn pritesh Carranza blood pressure, cuff size regular Cy gabriela Carranza pulse rate 90 /min Cintiapritesh Nielsen l respiratory rate E&M 16 /min Cintia Carranza oxygen saturation, oximetry 98 % Cintia Carranza weight E&M 180 [lb_av] Cintia hernandez height E&M 65 [in_i] Cintia Garibaybel l Body Mass Index (Ratio) 29.78 kg/m2 Lei Steinberg MD blood pressure, cuff size regular Ke rri Koreyuenejudah blood pressure, diastolic 90 mm[Hg] Ke rri Koreyuenenfelder blood pressure, systolic 160 mm[Hg] Laurel Cruz oxygen saturation, oximetry 99 % Alie Mcleannflyndaer respiratory rate E&M 16 /min Alie G arunaenenfelder pulse rate 90 /min Alie Valdivia lder weight E&M 179 [lb_av] Alie Poojanenfe lder height E&M 65 [in_i] Alie Poojanesavana lder Body Mass Index (Ratio) 29.12 kg/m2 Lei ann Steinberg MD pulse rate 93 /min Tonsha Teresa respiratory rate E&M 18 /min Tonsha Teresa blood pressure, diastolic 72 mm[Hg] To nsha Teresa blood pressure, systolic 112 mm[Hg] Ton sha Teresa blood pressure, resting No Tons beatty Teresa oxygen saturation, oximetry 97 % Tonsha Teresa weight E&M 175 [lb_av] Tonsha Teresa height E&M 65 [in_i] Tonsha Teresa Body Mass Index (Ratio) 28.45 kg/m2 Lei Steinberg MD blood pressure, diastolic 82 mm[Hg] Da cali Yu blood pressure, systolic 144 mm[Hg] Dac ia Yu oxygen saturation, oximetry 98 % Andreina Yu respiratory rate E&M 16 /min Andreina V oss pulse rate 87 /min Andreina Yu weight E&M 171 [lb_av] Andreina Yu height E&M 65 [in_i] Andreina Yu Body Mass Index (Ratio) 28.75 kg/m2 Lei Steinberg MD blood pressure, diastolic 84 mm[Hg] Mireya Lees blood pressure, systolic 129 mm[Hg] Connie Lees oxygen saturation, oximetry 96 % Francine Lees respiratory rate E&M 18 /min Shruti Lees pulse rate 82 /min FrancineBev Riverae declan weight E&M 172.8 [lb_av] Francine Rivera on height E&M 65 [in_i] Francine Ivey declan Body Mass Index (Ratio) 29.45 kg/m2 Lei Steinberg MD blood pressure, cuff size regular Ke servando Cruz blood pressure, diastolic 87 mm[Hg] Pura Cruz blood pressure, systolic 135 mm[Hg] Laurel Cruz oxygen saturation, oximetry 95 % Alie Cruz respiratory rate E&M 16 /min Alie chairez pulse rate 85 /min Alie ageeer weight E&M 177 [lb_av] Alie Valdivia lder height E&M 65 [in_i] Alie Valdivia lder blood pressure, diastolic 84 mm[Hg] Mireya Lees blood pressure, systolic 125 mm[Hg] Connie Lees pulse rate 79 /min Francine manriquez oxygen saturation, oximetry 93 % Francine Lees respiratory rate E&M 18 /min Shruti Lees Body Mass Index (Ratio) 31.65 kg/m2 Dayan Lees weight E&M 190.2 [lb_av] Francine vigil Body Mass Index (Ratio) 30.62 kg/m2 Anea elliot Brown blood pressure, diastolic 76 mm[Hg] An eatris Brown blood pressure, systolic 127 mm[Hg] Ane atris Brown pulse rate 89 /min Aneatris Brown oxygen saturation, oximetry 98 % Aneatris Brown respiratory rate E&M 17 /min Aneatri s Brown weight E&M 184 [lb_av] Aneatris Brown weight E&M 186 [lb_av] Nikki Pedro NP Body Mass Index (Ratio) 30.95 kg/m2 Jaswant Pedro NP blood pressure, diastolic, left arm 79 mm [Hg] Chicho West RN blood pressure, systolic, left arm 116 mm [Hg] Chicho West RN blood pressure, diastolic, right arm 75 m m[Hg] Chicho West RN blood pressure, systolic, right arm 113 m m[Hg] Chicho West RN blood pressure, diastolic 79 mm[Hg] Yash West RN blood pressure, systolic 116 mm[Hg] Chicho West RN pulse rate 90 /min Chicho West RN oxygen saturation, oximetry 98 % Chicho West RN respiratory rate E&M 15 /min Chicho madrigal RN Body Mass Index (Ratio) 32.73 kg/m2 Chicho West RN weight E&M 196 [lb_av] Chicho West RN blood pressure, diastolic 68 mm[Hg] Jimy Pedro ADVERTISING COPYWRITER blood pressure, systolic 112 mm[Hg] Gaby Pedro ADVERTISING COPYWRITER Body Mass Index (Ratio) 32.80 kg/m2 Jaswant Pedro ADVERTISING COPYWRITER weight E&M 196.4 [lb_av] Nikki Pedro ADVERTISING COPYWRITER Body Mass Index (Ratio) 33.47 kg/m2 Jaswant Pedro ADVERTISING COPYWRITER weight E&M 200.4 [lb_av] Nikki Pedro ADVERTISING COPYWRITER blood pressure, diastolic, left arm 85 mm [Hg] Vicki Stueber blood pressure, systolic, left arm 112 mm [Hg] Vicki Stueber blood pressure, diastolic, right arm 82 m m[Hg] Vicki Stueber blood pressure, systolic, right arm 125 m m[Hg] Vicki Stueber Body Mass Index (Ratio) 34.50 kg/m2 Lori a Stueber blood pressure, diastolic 85 mm[Hg] Ta raul Stueber blood pressure, systolic 112 mm[Hg] Mckinley khoa Stueber pulse rate 76 /min Vicki Stueber oxygen saturation, oximetry 98 % Vicki Stueber respiratory rate E&M 16 /min Vicki Asia michelle weight E&M 206.6 [lb_av] Vicki Stueber pulse rate #2 78 Jose Rafael Lewis blood pressure, acuna tolic, second observation 78 mm[Hg] Jose Rafael Lewis blood pressure, syst olic, second observation 109 mm[Hg] Jose Rafael Lewis oxygen saturation, oximetry 97 % Jose Rafael Lewis pulse rate 76 /min Jose Rafael Lewis blood pressure, diastolic 76 mm[Hg] Sheyla Lewis blood pressure, systolic 122 mm[Hg] Pauly Lewis pulse rate #2 74 Alejo Ayala blood pressure, acuna tolic, second observation 89 mm[Hg] Alejo Manacop blood pressure, syst olic, second observation 132 mm[Hg] Alejo Manacop oxygen saturation, oximetry 96 % Alejo Manacop pulse rate 74 /min Alejo Manacop blood pressure, diastolic 93 mm[Hg] Carissa seph Manacop blood pressure, systolic 131 mm[Hg] Momo eph Manacop pulse rate #2 77 Alejo Manacop blood pressure, acuna tolic, second observation 74 mm[Hg] Alejo Manacop blood pressure, syst olic, second observation 119 mm[Hg] Alejo Manacop oxygen saturation, oximetry 96 % Alejo Manacop pulse rate 75 /min Alejo Manacop blood pressure, diastolic 71 mm[Hg] Carissa seph Manacop blood pressure, systolic 98 mm[Hg] Momo eph Manacop pulse rate #2 65 Alejo Manacop blood pressure, acuna tolic, second observation 83 mm[Hg] Alejo Manacop blood pressure, syst olic, second observation 121 mm[Hg] Alejo Manacop oxygen saturation, oximetry 96 % Alejo Manacop pulse rate 69 /min Alejo Manacop blood pressure, diastolic 81 mm[Hg] Carissa seph Manacop blood pressure, systolic 111 mm[Hg] Momo eph Manacop pulse rate #2 75 Alejo Manacop blood pressure, acuna tolic, second observation 96 mm[Hg] Alejo Manacop blood pressure, syst olic, second observation 128 mm[Hg] Alejo Manacop oxygen saturation, oximetry 96 % Alejo Manacop pulse rate 88 /min Alejo Manacop blood pressure, diastolic 78 mm[Hg] Carissa seph Manacop blood pressure, systolic 104 mm[Hg] Momo eph Manacop pulse rate #2 71 Alejo Manacop blood pressure, acuna tolic, second observation 75 mm[Hg] Alejo Manacop blood pressure, syst olic, second observation 112 mm[Hg] Alejo Manacop oxygen saturation, oximetry 96 % Alejo Manacop pulse rate 67 /min Alejo Manacop blood pressure, diastolic 76 mm[Hg] Carissa seph Manacop blood pressure, systolic 124 mm[Hg] Momo eph Manacop pulse rate #2 65 Alejo Manacop blood pressure, acuna tolic, second observation 78 mm[Hg] Alejo Manacop blood pressure, syst olic, second observation 116 mm[Hg] Alejo Manacop oxygen saturation, oximetry 96 % Alejo Manacop pulse rate 73 /min Alejo Manacop blood pressure, diastolic 86 mm[Hg] Carissa seph Manacop blood pressure, systolic 129 mm[Hg] Momo eph Manacop pulse rate #2 67 Alejo Manacop blood pressure, acuna tolic, second observation 74 mm[Hg] Alejo Manacop blood pressure, syst olic, second observation 117 mm[Hg] Alejo Manacop oxygen saturation, oximetry 96 % Alejo Manacop pulse rate 76 /min Alejo Manacop blood pressure, diastolic 85 mm[Hg] Carissa seph Manacop blood pressure, systolic 113 mm[Hg] Momo eph Manacop pulse rate #2 61 Alejo Manacop blood pressure, acuna tolic, second observation 79 mm[Hg] Alejo Manacop blood pressure, syst olic, second observation 132 mm[Hg] Alejo Manacop oxygen saturation, oximetry 96 % Alejo Manacop pulse rate 78 /min Alejo Manacop blood pressure, diastolic 82 mm[Hg] Carissa seph Manacop blood pressure, systolic 120 mm[Hg] Momo eph Manacop pulse rate #2 65 Alejo Manacop blood pressure, acuna tolic, second observation 81 mm[Hg] Alejo Manacop blood pressure, syst olic, second observation 118 mm[Hg] Alejo Manacop oxygen saturation, oximetry 96 % Alejo Manacop pulse rate 74 /min Alejo Manacop blood pressure, diastolic 83 mm[Hg] Carissa seph Manacop blood pressure, systolic 117 mm[Hg] Momo eph Manacop pulse rate #2 75 Alejo Manacop blood pressure, acuna tolic, second observation 84 mm[Hg] Alejo Manacop blood pressure, syst olic, second observation 120 mm[Hg] Alejo Manacop oxygen saturation, oximetry 96 % Alejo Manacop pulse rate 77 /min Alejo Manacop blood pressure, diastolic 88 mm[Hg] Carissa seph Manacop blood pressure, systolic 113 mm[Hg] Momo eph Manacop pulse rate #2 70 Alejo Manacop blood pressure, acuna tolic, second observation 78 mm[Hg] Alejo Manacop blood pressure, syst olic, second observation 113 mm[Hg] Alejo Manacop oxygen saturation, oximetry 96 % Alejo Manacop pulse rate 71 /min Alejo Manacop blood pressure, diastolic 81 mm[Hg] Carissa seph Manacop blood pressure, systolic 118 mm[Hg] Momo eph Manacop pulse rate #2 70 Alejo Manacop blood pressure, acuna tolic, second observation 73 mm[Hg] Alejo Manacop blood pressure, syst olic, second observation 112 mm[Hg] Alejo Manacop oxygen saturation, oximetry 96 % Alejo Manacop pulse rate 81 /min Alejo Manacop blood pressure, diastolic 94 mm[Hg] Carissa seph Manacop blood pressure, systolic 122 mm[Hg] Momo eph Manacop pulse rate #2 69 Alejo Manacop blood pressure, acuna tolic, second observation 82 mm[Hg] Alejo Manacop blood pressure, syst olic, second observation 120 mm[Hg] Aljeo Manacop oxygen saturation, oximetry 96 % Alejo Manacop pulse rate 73 /min Alejo Manacop blood pressure, diastolic 88 mm[Hg] Carissa seph Manacop blood pressure, systolic 118 mm[Hg] Momo eph Manacop pulse rate #2 68 Alejo Manacop blood pressure, acuna tolic, second observation 79 mm[Hg] Alejo Manacop blood pressure, syst olic, second observation 122 mm[Hg] Alejo Manacop oxygen saturation, oximetry 96 % Alejo Manacop pulse rate 85 /min Alejo Manacop blood pressure, diastolic 92 mm[Hg] Carissa seph Manacop blood pressure, systolic 119 mm[Hg] Momo eph Manacop pulse rate 80 /min Nikki Mayela ALEXANDRA blood pressure, diastolic 68 mm[Hg] lanny Mayela ALEXANDRA blood pressure, systolic 122 mm[Hg] She jona Mayela ADVERTISING COPYWRITER Body Mass Index (Ratio) 35.01 kg/m2 Jaswant mcdonald Mayela ALEXANDRA weight E&M 209.6 [lb_av] Nikki Mayela ALEXANDRA pulse rate #2 66 Alejo Manacop blood pressure, acuna tolic, second observation 79 mm[Hg] Alejo Manacop blood pressure, syst olic, second observation 121 mm[Hg] Alejo Manacop oxygen saturation, oximetry 96 % Alejo Manacop pulse rate 74 /min Alejo Manacop blood pressure, diastolic 88 mm[Hg] Carissa seph Manacop blood pressure, systolic 119 mm[Hg] Momo eph Manacop pulse rate #2 63 Alejo Manacop blood pressure, acuna tolic, second observation 85 mm[Hg] Alejo Manacop blood pressure, syst olic, second observation 126 mm[Hg] Alejo Manacop oxygen saturation, oximetry 96 % Alejo Manacop pulse rate 73 /min Alejo Manacop blood pressure, diastolic 84 mm[Hg] Carissa seph Manacop blood pressure, systolic 120 mm[Hg] Momo eph Manacop pulse rate #2 67 Alejo Manacop blood pressure, acuna tolic, second observation 86 mm[Hg] Alejo Manacop blood pressure, syst olic, second observation 124 mm[Hg] Alejo Manacop oxygen saturation, oximetry 96 % Alejo Manacop pulse rate 86 /min Alejo Manacop blood pressure, diastolic 89 mm[Hg] Carissa seph Manacop blood pressure, systolic 129 mm[Hg] Momo eph Manacop pulse rate #2 77 Alejo Manacop blood pressure, acuna tolic, second observation 78 mm[Hg] Alejo Manacop blood pressure, syst olic, second observation 121 mm[Hg] Alejo Manacop oxygen saturation, oximetry 96 % Alejo Manacop pulse rate 81 /min Alejo [place] blood pressure, diastolic 81 mm[Hg] Carissa seph [place] blood pressure, systolic 120 mm[Hg] Momo eph [place] pulse rate #2 74 Alejo [place] blood pressure, acuna tolic, second observation 77 mm[Hg] Alejo [place] blood pressure, syst olic, second observation 117 mm[Hg] Alejo [place] oxygen saturation, oximetry 96 % Alejo [place] pulse rate 95 /min Alejo [place] blood pressure, diastolic 83 mm[Hg] Carissa seph [place] blood pressure, systolic 108 mm[Hg] Momo eph [place] pulse rate #2 69 Alejo [place] blood pressure, acuna tolic, second observation 74 mm[Hg] Alejo [place] blood pressure, syst olic, second observation 119 mm[Hg] Alejo [place] oxygen saturation, oximetry 96 % Alejo [place] pulse rate 68 /min Alejo [place] blood pressure, diastolic 85 mm[Hg] Carissa seph [place] blood pressure, systolic 123 mm[Hg] Momo eph [place] pulse rate #2 69 Alejo [place] blood pressure, acuna tolic, second observation 78 mm[Hg] Alejo [place] blood pressure, syst olic, second observation 108 mm[Hg] Alejo [place] oxygen saturation, oximetry 96 % Alejo [place] pulse rate 77 /min Alejo [place] blood pressure, diastolic 79 mm[Hg] Carissa seph [place] blood pressure, systolic 132 mm[Hg] Momo eph [place] pulse rate #2 74 Alejo [place] blood pressure, acuna tolic, second observation 86 mm[Hg] Alejo [place] blood pressure, syst olic, second observation 150 mm[Hg] Alejo [place] oxygen saturation, oximetry 96 % Alejo [place] pulse rate 73 /min Alejo [place] blood pressure, diastolic 83 mm[Hg] Carissa seph [place] blood pressure, systolic 121 mm[Hg] Momo eph [place] pulse rate #2 74 Alejo [place] blood pressure, acuna tolic, second observation 84 mm[Hg] Alejo [place] blood pressure, syst olic, second observation 114 mm[Hg] Alejo [place] oxygen saturation, oximetry 96 % Alejo [place] pulse rate 81 /min Alejo [place] blood pressure, diastolic 86 mm[Hg] Carissa seph [place] blood pressure, systolic 134 mm[Hg] Momo eph [place] pulse rate #2 72 Alejo [place] blood pressure, acuna tolic, second observation 88 mm[Hg] Alejo [place] blood pressure, syst olic, second observation 134 mm[Hg] Alejo [place] oxygen saturation, oximetry 96 % Alejo [place] pulse rate 82 /min Alejo [place] blood pressure, diastolic 90 mm[Hg] Carissa seph [place] blood pressure, systolic 126 mm[Hg] Momo eph [place] pulse rate #2 72 Alejo [place] blood pressure, acuna tolic, second observation 86 mm[Hg] Alejo [place] blood pressure, syst olic, second observation 125 mm[Hg] Alejo [place] oxygen saturation, oximetry 96 % Alejo [place] pulse rate 74 /min Alejo [place] blood pressure, diastolic 94 mm[Hg] Carissa seph [place] blood pressure, systolic 128 mm[Hg] Momo eph [place] pulse rate #2 61 Alejo [place] blood pressure, acuna tolic, second observation 90 mm[Hg] Alejo [place] blood pressure, syst olic, second observation 126 mm[Hg] Alejo [place] oxygen saturation, oximetry 96 % Alejo [place] pulse rate 79 /min Alejo [place] blood pressure, diastolic 86 mm[Hg] Carissa seph [place] blood pressure, systolic 150 mm[Hg] Momo eph [place] pulse rate #2 60 Laejo Man[place] blood pressure, acuna tolic, second observation 91 mm[Hg] Alejo [place] blood pressure, syst olic, second observation 123 mm[Hg] Alejo [place] oxygen saturation, oximetry 96 % Alejo [place] pulse rate 68 /min Alejo [place] blood pressure, diastolic 87 mm[Hg] Carissa seph [place] blood pressure, systolic 143 mm[Hg] Momo eph [place] pulse rate #2 77 Alejo [place] blood pressure, acuna tolic, second observation 92 mm[Hg] Alejo [place] blood pressure, syst olic, second observation 125 mm[Hg] Alejo [place] oxygen saturation, oximetry 96 % Alejo [place] pulse rate 81 /min Alejo [place] blood pressure, diastolic 89 mm[Hg] Carissa seph [place] blood pressure, systolic 119 mm[Hg] Momo eph [place] pulse rate #2 68 Alejo [place] blood pressure, acuna tolic, second observation 77 mm[Hg] Alejo [place] blood pressure, syst olic, second observation 114 mm[Hg] Alejo [place] oxygen saturation, oximetry 96 % Alejo [place] pulse rate 75 /min Alejo [place] blood pressure, diastolic 93 mm[Hg] Carissa seph [place] blood pressure, systolic 123 mm[Hg] Momo eph [place] pulse rate #2 65 Alejo [place] blood pressure, acuna tolic, second observation 88 mm[Hg] Alejo [place] blood pressure, syst olic, second observation 122 mm[Hg] Alejo [place] oxygen saturation, oximetry 96 % Alejo [place] pulse rate 71 /min Alejo [place] blood pressure, diastolic 89 mm[Hg] Carissa seph [place] blood pressure, systolic 126 mm[Hg] Momo eph [place] pulse rate #2 60 Alejo [place] blood pressure, acuna tolic, second observation 81 mm[Hg] Alejo [place] blood pressure, syst olic, second observation 120 mm[Hg] Alejo [place] oxygen saturation, oximetry 96 % Alejo [place] pulse rate 89 /min Alejo [place] blood pressure, diastolic 78 mm[Hg] Carissa seph [place] blood pressure, systolic 134 mm[Hg] Momo eph [place] pulse rate #2 60 Alejo [place] blood pressure, acuna tolic, second observation 87 mm[Hg] Alejo [place] blood pressure, syst olic, second observation 124 mm[Hg] Alejo [place] oxygen saturation, oximetry 96 % Alejo [place] pulse rate 73 /min Alejo [place] blood pressure, diastolic 82 mm[Hg] Carissa seph [place] blood pressure, systolic 124 mm[Hg] Momo eph [place] pulse rate #2 57 Alejo [place] blood pressure, acuna tolic, second observation 84 mm[Hg] Alejo [place] blood pressure, syst olic, second observation 117 mm[Hg] Alejo [place] oxygen saturation, oximetry 96 % Alejo [place] pulse rate 74 /min Alejo [place] blood pressure, diastolic 77 mm[Hg] Carissa seph [place] blood pressure, systolic 120 mm[Hg] Momo eph [place] pulse rate #2 60 Alejo [place] blood pressure, acuna tolic, second observation 82 mm[Hg] Alejo [place] blood pressure, syst olic, second observation 127 mm[Hg] Alejo [place] oxygen saturation, oximetry 96 % Alejo [place] pulse rate 72 /min Alejo [place] blood pressure, diastolic 84 mm[Hg] Carissa seph [place] blood pressure, systolic 142 mm[Hg] Momo eph [place] blood pressure, diastolic, left arm 73 mm [Hg] Chicho West RN blood pressure, systolic, left arm 106 mm [Hg] Chicho West RN blood pressure, diastolic, right arm 90 m m[Hg] Chicho West RN blood pressure, systolic, right arm 131 m m[Hg] Chicho West RN blood pressure, diastolic 73 mm[Hg] Yash weber West RN blood pressure, systolic 106 mm[Hg] Chicho West RN pulse rate 87 /min Chicho West RN oxygen saturation, oximetry 96 % Chicho [place] RN respiratory rate E&M 17 /min Chicho beaverasia RN Body Mass Index (Ratio) 35.24 kg/m2 Chicho [place] ROBIN weight E&M 211 [lb_av] Chicho [place] ROBIN blood pressure, diastolic 80 mm[Hg] Izzy Dawson blood pressure, systolic 128 mm[Hg] Can jovana Dawson Body Mass Index (Ratio) 35.74 kg/m2 Halina Nassar pulse rate 84 /min Rajni Nassar oxygen saturation, oximetry 99 % Rajni Nassar respiratory rate E&M 16 /min Rajni Nassar weight E&M 214 [lb_av] Rajni Nassar height E&M 65 [in_i] Rajni Nassar blood pressure, diastolic 77 mm[Hg] Roger Nassar blood pressure, systolic 122 mm[Hg] Jaydon Nassar blood pressure, diastolic, left arm 78 mm [Hg] Trisha Phipps blood pressure, systolic, left arm 120 mm [Hg] Trisha Phipps blood pressure, diastolic, right arm 80 m m[Hg] Trisha Phipps blood pressure, systolic, right arm 112 m m[Hg] Trisha Phipps blood pressure, diastolic 78 mm[Hg] Gennaro Phipps blood pressure, systolic 120 mm[Hg] Rufina Phipps pulse rate 66 /min Trisha Phipps oxygen saturation, oximetry 97 % Trisha Phipps respiratory rate E&M 16 /min Trisha [place] weight E&M 208 [lb_av] Trisha Moise blood pressure, diastolic 71 mm[Hg] Mireya rogerio O'Prudencio blood pressure, systolic 110 mm[Hg] Connie michelle O'Prudencio pulse rate 73 /min Susan O'Prudencio oxygen saturation, oximetry 99 % Susan O'Prudencio respiratory rate E&M 18 /min Susan O'Prudencio weight E&M 209 [lb_av] Susan O'Prudencio blood pressure, diastolic, left arm 86 mm [Hg] Elizabeth Victor MA blood pressure, systolic, left arm 114 mm [Hg] Elizabeth Victor MA blood pressure, diastolic, right arm 85 m m[Hg] Elizabeth Victor MA blood pressure, systolic, right arm 115 m m[Hg] Eliazbeth Victor MA oxygen saturation, oximetry 97 % Elizabeth Victor MA blood pressure, diastolic 85 mm[Hg] Wendy Victor MA blood pressure, systolic 115 mm[Hg] Vy Victor MA pulse rate 78 /min Elizabeth Victor MA respiratory rate E&M 16 /min Elizabeth Victor MA weight E&M 209 [lb_av] Elizabeth Victor MA blood pressure, diastolic 86 mm[Hg] Yash West RN blood pressure, systolic 126 mm[Hg] Chicho West RN pulse rate 80 /min Chicho [place] RN oxygen saturation, oximetry 98 % Chicho [place] RN respiratory rate E&M 18 /min Chicho madrigal RN weight E&M 203 [lb_av] Chicho West RN blood pressure, diastolic 72 mm[Hg] Carissa seph [place] blood pressure, systolic 112 mm[Hg] Momo eph [place] pulse rate 83 /min Alejo Man[place] oxygen saturation, oximetry 98 % Alejo Man[place] respiratory rate E&M 16 /min Alejo [place] weight E&M 202 [lb_av] Alejo [place] blood pressure, diastolic 60 mm[Hg] Yash West RN blood pressure, systolic 105 mm[Hg] Chicho Escobars RN pulse rate 89 /min Chicho Escobars RN oxygen saturation, oximetry 98 % Chicho Escobars RN respiratory rate E&M 18 /min Chicho Paulette madrigal RN weight E&M 202 [lb_av] Chicho Escobars RN blood pressure, diastolic 89 mm[Hg] Wendy ruddy Victor MA blood pressure, systolic 126 mm[Hg] Wendyyeni viviana Victor MA pulse rate 87 /min Elizabeth Victor MA oxygen saturation, oximetry 99 % Elizabeth Victor MA respiratory rate E&M 18 /min Elizabeth Victor MA weight E&M 201 [lb_av] Elizabeth Victor MA ALLERGIES Allergy Name Onset Date Reaction Criticality Status COZAAR coyggh Low Criticality active ACCUPRIL cough cough Low Criticality active CALAN edema edema Low Criticality active RESULTS Date Observation Value Provider Reference Range Interpretation Location rapid plasma reagin antibody screen Reactive [facility] Non Reactive Abnormal ferritin, serum 27 ng/mL [facility] 15-150 prothrombin time (patient) 10.6 s [facility] 9.1-12.0 international normalized ratio (INR) 1.0 [facility] 0.9-1.2 iron saturation percent, serum 20 % [facility] 15-55 iron, serum 68 ug/dL [facility] 27-139 iron binding capacity, unsaturated 278 ug/dL [facility] 287-773 9787/01 /18 iron binding capacity, total 346 ug/dL [facility] 277-802 1003/01 /18 lipoprotein, beta, serum, point, quantitative, calculated 51 mg/dL [facility] 0-99 HDL cholesterol, serum 59 mg/dL [facility] >39 triglyceride, serum, random 83 mg/dL [facility] 0-149 cholesterol, serum 126 mg/dL [facility] 442-815 7155/01 /18 alanine aminotransferase (SGPT), serum 17 1/L [facility] 0-32 aspartate aminotransferase (SGOT), serum 20 1/L [facility] 0-40 alkaline phosphatase, serum 101 1/L [facility] 44-121 bilirubin, serum, total 0.3 mg/dL [facility] 0.0-1.2 albumin/globulin ratio, serum 2.0 [facility] 1.2-2.2 globulin, serum 2.2 [facility] 1.5-4.5 albumin, serum 4.5 g/dL [facility] 3.9-4.9 protein, total, serum 6.7 g/dL [facility] 6.0-8.5 calcium, serum 9.5 mg/dL [facility] 8.7-10.3 carbon dioxide, venous blood 24 mmol/L [facility] 20-29 chloride, serum 107 mmol/L [facility] 96-106 High potassium, serum 4.8 mmol/L [facility] 3.5-5.2 sodium, serum 145 mmol/L [facility] 134-144 High urea nitrogen/creatinine ratio, serum 20 [facility] 12-28 creatinine, serum 0.75 mg/dL [facility] 0.57-1.00 urea nitrogen, blood 15 mg/dL [facility] 8-27 blood glucose, random 91 mg/dL [facility] 70-99 basophil count, absolute 0.1 x10E3/uL [facility] 0.0-0.2 Eosinophil Absolute Count 0.3 X10E3/UL [facility] 0.0-0.4 monocyte count, blood, automated 0.8 X10E3/UL [facility] 0.1-0.9 lymphocyte count, blood, automated 2.3 X10E3/UL [facility] 0.7-3.1 Absolute Neutrophils 4.2 X10E3/UL [facility] 1.4-7.0 basophils as percent of blood leukocytes 1 % [facility] Not Estab. eosinophils as percent of blood leukocytes 4 % [facility] Not Estab. monocytes as percent of blood leukocytes 11 % [facility] Not Estab. lymphocytes as percent of blood leukocytes 30 % [facility] Not Estab. neutrophils as percent of blood leukocytes 54 % [facility] Not Estab. platelet count 280 X10E3/UL [facility] 313-690 8138/01 /17 red blood cell distribution width 12.3 % [facility] 11.7-15.4 mean corpuscular hemoglobin concentration, RBC 32.0 G/DL [facility] 31.5-35.7 mean corpuscular hemoglobin, RBC 28.4 pg [facility] 26.6-33.0 mean corpuscular volume, RBC 89 fL [facility] 79-97 hematocrit, blood 42.2 % [facility] 34.0-46.6 hemoglobin, blood 13.5 g/dL [facility] 11.1-15.9 erythrocyte (RBC) count 4.76 X10E6/UL [facility] 3.77-5.28 leukocyte count, blood 7.7 X10E3/UL [facility] 3.4-10.8 microalbumin/creati nine ratio, urine 5 MCG/MG CREAT [facility] <30 Normal microalbumin/total urine volume 5 mg/L [facility] Units converted. See lab report for original value. Normal creatinine, random, urine 105 mg/dL [facility] 20-275 Normal ferritin, serum 40 ng/mL [facility] 16-288 Normal basophils as percent of blood leukocytes 0.9 % [facility] Normal eosinophils as percent of blood leukocytes 1.5 % [facility] Normal monocyte count, blood 8.2 % [facility] Normal lymphocyte count, blood 31.3 % [facility] Normal neutrophils as percent of blood leukocytes 58.1 % [facility] Normal basophils, absolute, manual 68 cells/mcL [facility] 0-200 Normal eosinophils, absolute, manual 114 cells/mcL [facility] 15-500 Normal monocytes, absolute, manual 623 cells/mcL [facility] 200-950 Normal lymphocytes, absolute 2379 CELLS/UL [facility] 850-3900 Normal Absolute Neutrophil count 4416 cells/mcL [facility] 0063-1846 Normal mean platelet volume 12.0 fL [facility] 7.5-12.5 Normal platelet count 222 THOUSAND/UL [facility] 140-400 Normal red blood cell distribution width 13.1 % [facility] 11.0-15.0 Normal mean corpuscular hemoglobin concentration, RBC 32.5 G/DL [facility] 32.0-36.0 Normal mean corpuscular hemoglobin, RBC 28.2 pg [facility] 27.0-33.0 Normal mean corpuscular volume, RBC 86.9 fL [facility] 80.0-100.0 Normal hematocrit, blood 42.5 % [facility] 35.0-45.0 Normal hemoglobin electrophoresis, blood 13.8 [facility] 11.7-15.5 Normal erythrocyte (RBC) count 4.89 MILLION/UL [facility] 3.80-5.10 Normal leukocyte (white blood cells) count, blood 7.6 THOUSAND/UL [facility] 3.8-10.8 Normal alanine aminotransferase (SGPT), serum 20 1/L [facility] 6-29 Normal aspartate aminotransferase (SGOT), serum 18 1/L [facility] 10-35 Normal alkaline phosphatase, serum 90 1/L [facility] 37-153 Normal bilirubin, serum, total 0.4 mg/dL [facility] 0.2-1.2 Normal albumin/globulin ratio, serum 1.9 (calc) [facility] 1.0-2.5 Normal globulins, serum, total 2.3 G/DL (CALC) [facility] 1.9-3.7 Normal albumin, serum 4.3 g/dL [facility] 3.6-5.1 Normal protein, total, serum 6.6 g/dL [facility] 6.1-8.1 Normal calcium, serum 9.3 mg/dL [facility] 8.6-10.4 Normal carbon dioxide, venous blood 32 mmol/L [facility] 20-32 Normal chloride, serum 107 mmol/L [facility] 98-110 Normal potassium, serum 4.2 mmol/L [facility] 3.5-5.3 Normal sodium, serum 142 mmol/L [facility] 135-146 Normal urea nitrogen/creatinine ratio, serum NOT APPLICABLE (calc) [facility] 6-22 Estimated Glomerular Filtration Rate (calc) 101 mL/min/{1.73_ m2} [facility] > OR = 60 Normal creatinine, serum 0.73 mg/dL [facility] 0.50-0.99 Normal urea nitrogen, blood 12 mg/dL [facility] 7-25 Normal blood glucose, random 83 mg/dL [facility] 65-99 Normal iron saturation percent, serum 40 % (CALC) [facility] 16-45 Normal iron binding capacity, total 289 MCG/DL (CALC) [facility] 250-450 Normal iron, serum 116 ug/dL [facility] 45-160 Normal thyroid stimulating hormone, serum 2.37 u[IU]/mL [facility] 0.40-4.50 Normal free thyroxine index 2.1 [facility] 1.4-3.8 Normal thyroxine, serum, total 7.1 ug/dL [facility] 5.1-11.9 Normal triiodothyronine resin uptake 30 % [facility] 22-35 Normal cholesterol, non-HDL, total 83 MG/DL (CALC) [facility] <130 Normal cholesterol/HDL ratio, serum, percent 2.7 (calc) [facility] <5.0 Normal LDL cholesterol, serum 65 MG/DL (CALC) [facility] Normal triglyceride, serum, fasting 93 mg/dL [facility] <150 Normal HDL cholesterol, serum 48 mg/dL [facility] > OR = 50 Low cholesterol, serum 131 mg/dL [facility] <200 Normal c-reactive protein, quantitative, serum 0.73 mg/L [facility] 0.00-3.00 lipoprotein, beta, serum, point, quantitative, calculated 70 mg/dL [facility] 0-99 HDL cholesterol, serum 62 mg/dL [facility] >39 triglyceride, serum, random 72 mg/dL [facility] 0-149 cholesterol, serum 146 mg/dL [facility] 017-692 9510/08 /20 basophil count, absolute 0.1 x10E3/uL [facility] 0.0-0.2 Eosinophil Absolute Count 0.2 X10E3/UL [facility] 0.0-0.4 monocyte count, blood, automated 0.6 X10E3/UL [facility] 0.1-0.9 lymphocyte count, blood, automated 2.3 X10E3/UL [facility] 0.7-3.1 Absolute Neutrophils 3.8 X10E3/UL [facility] 1.4-7.0 basophils as percent of blood leukocytes 1 % [facility] Not Estab. eosinophils as percent of blood leukocytes 3 % [facility] Not Estab. monocytes as percent of blood leukocytes 9 % [facility] Not Estab. lymphocytes as percent of blood leukocytes 33 % [facility] Not Estab. neutrophils as percent of blood leukocytes 54 % [facility] Not Estab. platelet count 262 X10E3/UL [facility] 042-410 5590/08 /20 red blood cell distribution width 12.8 % [facility] 11.7-15.4 mean corpuscular hemoglobin concentration, RBC 31.3 G/DL [facility] 31.5-35.7 Low mean corpuscular hemoglobin, RBC 29.0 pg [facility] 26.6-33.0 mean corpuscular volume, RBC 93 fL [facility] 79-97 hematocrit, blood 41.8 % [facility] 34.0-46.6 hemoglobin, blood 13.1 g/dL [facility] 11.1-15.9 erythrocyte (RBC) count 4.51 X10E6/UL [facility] 3.77-5.28 leukocyte count, blood 7.1 X10E3/UL [facility] 3.4-10.8 alanine aminotransferase (SGPT), serum 25 1/L [facility] 0-32 aspartate aminotransferase (SGOT), serum 24 1/L [facility] 0-40 alkaline phosphatase, serum 102 1/L [facility] 48-121 bilirubin, serum, total 0.2 mg/dL [facility] 0.0-1.2 albumin/globulin ratio, serum 1.9 [facility] 1.2-2.2 globulin, serum 2.2 [facility] 1.5-4.5 albumin, serum 4.2 g/dL [facility] 3.8-4.8 protein, total, serum 6.4 g/dL [facility] 6.0-8.5 calcium, serum 8.9 mg/dL [facility] 8.7-10.3 carbon dioxide, venous blood 23 mmol/L [facility] 20-29 chloride, serum 107 mmol/L [facility] 96-106 High potassium, serum 4.2 mmol/L [facility] 3.5-5.2 sodium, serum 141 mmol/L [facility] 972-735 0471/08 /20 urea nitrogen/creatinine ratio, serum 16 [facility] 12-28 eGFR if 92 mL/min/{1.73_ m2} [facility] >59 eGFR if not 80 mL/min/{1.73_ m2} [facility] >59 creatinine, serum 0.79 mg/dL [facility] 0.57-1.00 urea nitrogen, blood 13 mg/dL [facility] 8-27 blood glucose, random 90 mg/dL [facility] 65-99 ferritin, serum 57 ng/mL [facility] 15-150 pro brain natriuretic peptide 96 pg/mL [facility] 0-287 iron saturation percent, serum 31 % [facility] 15-55 iron, serum 88 ug/dL [facility] 27-139 iron binding capacity, unsaturated 195 ug/dL [facility] 806-573 9135/07 /29 iron binding capacity, total 283 ug/dL [facility] 302-976 7260/01 /19 hemoglobin A1C, blood, as % of total hemoglobin 5.6 % OF TOTAL HGB [facility] <5.7 Normal hemoglobin A1C, blood, as % of total hemoglobin 5.7 % [facility] 4.8-5.6 High microalbumin/creati nine ratio, urine <6.2 mg/g creat [facility] 0.0-30.0 microalbumin, random, urine <3.0 ug/mL [facility] Not Estab. creatinine, random, urine 48.7 mg/dL [facility] Not Estab. hemoglobin A1C, blood, as % of total hemoglobin 5.7 % OF TOTAL HGB [facility] <5.7 High B-12, serum 1461 pg/mL [facility] 200-1100 High alanine aminotransferase (SGPT), serum 20 1/L [facility] 6-29 Normal aspartate aminotransferase (SGOT), serum 18 1/L [facility] 10-35 Normal alkaline phosphatase, serum 75 1/L [facility] 33-130 Normal bilirubin, serum, total 0.4 mg/dL [facility] 0.2-1.2 Normal albumin/globulin ratio, serum 1.6 (calc) [facility] 1.0-2.5 Normal globulins, serum, total 2.6 G/DL (CALC) [facility] 1.9-3.7 Normal albumin, serum 4.1 g/dL [facility] 3.6-5.1 Normal protein, total, serum 6.7 g/dL [facility] 6.1-8.1 Normal calcium, serum 9.3 mg/dL [facility] 8.6-10.4 Normal carbon dioxide, venous blood 25 mmol/L [facility] 20-31 Normal chloride, serum 107 mmol/L [facility] 98-110 Normal potassium, serum 4.0 mmol/L [facility] 3.5-5.3 Normal sodium, serum 140 mmol/L [facility] 135-146 Normal urea nitrogen/creatinine ratio, serum NOT APPLICABLE (calc) [facility] 6-22 Estimated Glomerular Filtration Rate (calc) 89 mL/min/{1.73_ m2} [facility] > OR = 60 Normal creatinine, serum 0.83 mg/dL [facility] 0.50-1.05 Normal urea nitrogen, blood 17 mg/dL [facility] 7-25 Normal blood glucose, random 86 mg/dL [facility] 65-99 Normal iron saturation percent, serum 21 % (CALC) [facility] 11-50 Normal iron binding capacity, total 305 MCG/DL (CALC) [facility] 250-450 Normal iron, serum 64 ug/dL [facility] 45-160 Normal cholesterol, non-HDL, total 86 MG/DL (CALC) [facility] Normal cholesterol/HDL ratio, serum, percent 2.7 (calc) [facility] < OR = 5.0 Normal LDL cholesterol, serum 66 MG/DL (CALC) [facility] <130 Normal triglyceride, serum, fasting 101 mg/dL [facility] <150 Normal HDL cholesterol, serum 51 mg/dL [facility] > OR = 46 Normal cholesterol, serum 137 mg/dL [facility] 125-200 Normal very low density lipoproteins 23.4 mg/dL [facility] 5.0 - 40.0 LDL/HDL (low-density lipoprotein/high-de nsity lipoprotein) ratio 1.4 RATIO [facility] - lipoprotein, beta, serum, point, quantitative, calculated 76.6 (?) [facility] 0.0 - 100.0 HDL cholesterol, serum 54.0 mg/dL [facility] 45.0 - 65.0 cholesterol, serum 154.0 mg/dL [facility] 0.0 - 200.0 triglyceride, serum, fasting 117.0 mg/dL [facility] 0.0 - 150.0 triglyceride, target level 150 mg/dL Nikki Pedro NP HDL cholesterol, serum, target level 40 mg/dL Nikki Shumway [employer] LDL target level 100 mg/dL Nikki Mayela [employer] cholesterol, target level 200 mg/dL Nikki Shumway [employer] cholesterol/HDL ratio, serum 2.2 Nikki Mayela [employer] triglyceride, serum, fasting 264 mg/dL Nikki Mayela [employer] HDL cholesterol, serum 53 mg/dL Nikki Mayela [employer] LDL cholesterol, serum 12 mg/dL Nikki Mayela [employer] cholesterol, serum 118 mg/dL Nikki Shumway [employer] alanine aminotransferase (SGPT), serum 18 1/L [facility] 6-29 Normal aspartate aminotransferase (SGOT), serum 19 1/L [facility] 10-35 Normal cholesterol/HDL ratio, serum, percent 2.2 (calc) [facility] < OR = 5.0 Normal LDL cholesterol, serum 42 MG/DL (CALC) [facility] <130 Normal triglyceride, serum, fasting 97 mg/dL [facility] <150 Normal HDL cholesterol, serum 53 mg/dL [facility] > OR = 46 Normal cholesterol, serum 114 mg/dL [facility] 125-200 Low HDL cholesterol, serum Nikki Mayela [employer] Normal LDL cholesterol, serum Nikki Shumway [employer] Normal triglyceride, serum, fasting 650 mg/dL Nikki Mayela [employer] High cholesterol, serum 226 mg/dL Nikki Shumway [employer] High triglyceride, target level 150 mg/dL Nikki Mayela [employer] HDL cholesterol, serum, target level 40 mg/dL Nikki Mayela [employer] LDL target level 100 mg/dL Nikki Mayela [employer] cholesterol, target level 200 mg/dL Nikki Shumway [employer] nitrate usage None [facility] nitrate usage None Alejo Ward[place] nitrate usage None Alejo [place] nitrate usage None [facility] nitrate usage None [facility] nitrate usage None [facility] nitrate usage None [facility] nitrate usage None [facility] nitrate usage None [facility] nitrate usage None [facility] nitrate usage None [facility] nitrate usage None [facility] nitrate usage None [facility] nitrate usage None [facility] nitrate usage None [facility] nitrate usage None [facility] nitrate usage None [facility] nitrate usage None [facility] nitrate usage None [facility] nitrate usage None [facility] nitrate usage None [facility] nitrate usage None [facility] nitrate usage None [facility] nitrate usage None [facility] nitrate usage None [facility] nitrate usage None [facility] nitrate usage [facility] nitrate usage [facility] usage [facility] nitrate usage [facility] nitrate usage [facility] nitrate usage [facility] nitrate usage [facility] nitrate usage [facility] nitrate usage [facility] platelet count 241 10*3/mm3 [facility] hematocrit, blood 40.3 % [facility] alanine aminotransferase (SGPT), serum 24 1/L [facility] aspartate aminotransferase (SGOT), serum 24 1/L [facility] creatinine, serum 0.82 mg/dL [facility] potassium, serum 4.2 mmol/L [facility] sodium, serum 138 mmol/L [facility] thyroid stimulating hormone, serum 2.10 u[IU]/mL Travis Pedersen amylase, serum 62 1/L [facility] (31-124) free thyroxine index 2.4 [facility] (1.2-4.9) triiodothyronine resin uptake 33 % [facility] (24-39) thyroxine, serum, total 7.2 ug/dL [facility] (4.5-12.0) thyroid stimulating hormone, serum 2.910 u[IU]/mL [facility] (0.450-4.50 0) alanine aminotransferase (SGPT), serum 23 1/L [facility] (0-40) aspartate aminotransferase (SGOT), serum 22 1/L [facility] (0-40) alkaline phosphatase, serum 103 1/L [facility] (25-150) bilirubin, serum, total 0.2 mg/dL [facility] (0.0-1.2) albumin/globulin ratio, serum 1.5 [facility] (1.1-2.5) globulin, serum 2.8 [facility] (1.5-4.5) albumin, serum 4.2 g/dL [facility] (3.5-5.5) protein, total, serum 7.0 g/dL [facility] (6.0-8.5) calcium, serum 9.3 mg/dL [facility] (8.7-10.2) carbon dioxide, venous blood 24 mmol/L [facility] (20-32) chloride, serum 106 mmol/L [facility] (97-108) potassium, serum 4.3 mmol/L [facility] (3.5-5.2) sodium, serum 142 mmol/L [facility] (135-145) urea nitrogen/creatinine ratio, serum 15 [facility] (9-23) creatinine, serum 0.74 mg/dL [facility] (0.57-1.00) urea nitrogen, blood 11 mg/dL [facility] (6-24) blood glucose, random 87 mg/dL [facility] (65-99) basophil count, absolute 0.0 x10E3/uL [facility] (0.0-0.2) Eosinophil Absolute Count 0.2 X10E3/UL [facility] (0.0-0.4) monocyte count, blood, automated 0.8 X10E3/UL [facility] (0.1-1.0) lymphocyte count, blood, automated 2.2 X10E3/UL [facility] (0.7-4.5) Absolute Neutrophils 4.4 X10E3/UL [facility] (1.8-7.8) basophils as percent of blood leukocytes 1 % [facility] (0-3) eosinophils as percent of blood leukocytes 3 % [facility] (0-7) monocytes as percent of blood leukocytes 10 % [facility] (4-13) lymphocytes as percent of blood leukocytes 29 % [facility] (14-46) neutrophils as percent of blood leukocytes 57 % [facility] (40-74) platelet count 269 X10E3/UL [facility] (140-415) red blood cell distribution width 14.1 % [facility] (11.7-15.0) mean corpuscular hemoglobin concentration, RBC 33.1 G/DL [facility] (32.0-36.0) mean corpuscular hemoglobin, RBC 29.2 pg [facility] (27.0-34.0) mean corpuscular volume, RBC 88 fL [facility] (80-98) hematocrit, blood 39.9 % [facility] (34.0-44.0) hemoglobin, blood 13.2 g/dL [facility] (11.5-15.0) erythrocyte (RBC) count 4.52 X10E6/UL [facility] (3.80-5.10) leukocyte count, blood 7.6 X10E3/UL [facility] (4.0-10.5) HISTORY OF MEDICATION USE Medication Status Instructions Dates Provider Indications Com ments Wegovy 0.25 mg/0.5 mL pen injector active INJECT 1 PEN INJECTOR SUBCUTANEOUSLY ONCE A WEEK FOR 4 WEEKS Beatriz Flores [employer] Norvasc 10 mg tablet active Take 1 tablet by mouth once a day Dereje Steinberg MD phentermine 37.5 mg capsule active TAKE 1 CAPSULE BY MOUTH EVERY DAY to lose weight Dereje Steinberg MD phentermine 37.5 mg capsule completed TAKE 1 CAPSULE BY MOUTH EVERY DAY - Dereje Brudickgovy 0.25 mg/0.5 mL pen injector completed Inject 0.25mg subcutaneously once a week for 4 weeks, then increase to 0.5mg once weekly if tolerated - Dereje Steinberg MD Synthroid 25 mcg tablet completed 1 tablet by mouth once a day - Dereje Steinberg MD losartan 100 mg tablet completed TAKE 1 TABLET BY MOUTH EVERY DAY - Dereje Steinberg MD ezetimibe 10 mg tablet active TAKE 1 TABLET BY MOUTH EVERY DAY WITH ATORVASTATIN Rupali Starks Wegovy 0.5 mg/0.5 mL pen injector completed Inject 1 pen injector subcutaneously once a week - Dereje Steinberg MD Ozempic 0.25 mg or 0.5 mg(2 mg/1.5 mL) pen injector completed INJECT 0.25 MG SUBQ ONCE WEEKLY FOR 4 WEEKS. THEN INCREASE TO 0.5 MG SUBQ WEEKS TO REDUCE CV EVENTS. - Dereje Steinberg MD losartan 50 mg tablet completed TAKE 1 TABLET BY MOUTH EVERY DAY - Dereje Steinberg MD Zetia 10 mg tablet completed TAKE 1 TABLET BY MOUTH ONCE DAILY WITH ATORVASTATIN - Deepa Booth ferrous sulfate 325 mg (65 mg iron) tablet completed TAKE 1 TABLET BY MOUTH EVERY DAY - Dereje Steinberg MD phentermine 37.5 mg capsule completed TAKE 1 CAPSULE BY MOUTH EVERY DAY - Dereje Steinberg MD atorvastatin 80 mg tablet active TAKE 1 TABLET BY MOUTH EVERY DAY [place] phentermine 37.5 mg capsule completed Take 1 capsule by mouth once a day - Dereje Steinberg MD cholecalciferol (vitamin D3) 125 mcg (5,000 unit) capsule active TAKE 1 CAPSULE BY MOUTH EVERY DAY Tonja Mack sertraline 100 mg tablet completed TAKE 1 TABLET BY MOUTH EVERY DAY - Dereje Steinberg MD aspirin 81 mg tablet,delayed release (DR/EC) active TAKE 1 TABLET BY MOUTH EVERY DAY Tonja Mack sumatriptan 20 mg/actuation spray,non-aerosol completed - Beatriz Flores [employer] FeroSul 325 mg (65 mg iron) tablet completed Take 1 tablet by mouth once a day - Dereje Steinberg MD Ozempic 0.25 mg or 0.5 mg(2 mg/1.5 mL) pen injector completed - Dereje Steinberg MD naltrexone 50 mg tablet completed TAKE 1/2 TABLET BY MOUTH DAILY, MAY INCREASE TO 1/2 TABLET TWICE A DAY IF NEEDED AFTER 1 WEEK - Dereje Steinberg MD Zetia 10 mg tablet completed Take 1 tablet by mouth once a day - Nikki Tavera NP OZEMPIC 0.25-0.5 MG DOSE PEN completed INJECT 0.25 MG SUBQ ONCE WEEKLY FOR 4 WEEKS. THEN INCREASE TO 0.5 MG SUBQ WEEKS TO REDUCE CV EVENTS. - Nikki Pedro NP NALTREXONE HCL 50 MG ORAL TABLET completed 1/2 tab by mouth daily, if not effective after 1 week may increase to 1/2 tab twice daily - Nikki Pedro NP PHENTERMINE HCL 37.5 MG TABS completed TAKE 1 TABLET BY MOUTH EVERY DAY - Alie Cruz Vitamin B-12 500 mcg tablet active once a day Dereje Steinberg MD NITROFURANTOIN MACROCRYSTAL 50 MG ORAL CAPSULE completed as needed - Andreina Nicholas Topamax 100 mg tablet active Take 1 once a day Ruth Layton RN PHENTERMINE 37.5 MG CAPSULE completed TAKE 1 CAPSULE BY MOUTH DAILY - Danae Allred aspirin 81 mg tablet,delayed release (/EC) completed Take 1 tablet by mouth once a day - Dereje Steinberg MD MULTIVITAMINS CAPS completed once a day - Alie Cruz DIAZEPAM TABLET completed as needed - Alie Cruz QSYMIA 15-92 MG ORAL CAPSULE EXTENDED RELEASE 24 HOUR completed take one time daily - Ruth Layton RN QSYMIA 3.75-23 MG ORAL CAPSULE EXTENDED RELEASE 24 HOUR completed one tablet daily - Dereje Steinberg MD cholecalciferol (vitamin D3) 125 mcg (5,000 unit) tablet completed once a day - Dereje Steinberg MD VITAMIN D3 5000 UNIT/ML ORAL LIQUID completed ONE A DAY - Aneatrmanoj Bourne NIASPAN 500 MG ORAL TABLET EXTENDED RELEASE completed Take 1 tab at bedtime - Dereje Steinberg MD Lipitor 80 mg tablet completed 1 tablet once a day - Dereje Steinberg MD VASCEPA 1GRAM completed take two tabs bid - Kellen Mendes RN CRESTOR 10 MG ORAL TABLET completed ONE TAB. DAILY - Sharda Worrell RN XANAX 0.5 MG ORAL TABLET completed PRN - Alie Cruz TRAMADOL HCL 50 MG ORAL TABLET completed PRN - Kellen Mendes RN VITAMIN D-3 5000 UNIT TABS completed ONE A DAY - Kellen Mendes RN IMITREX SOLUTION completed as needed - Chicho West RN ZANTAC 150 MG ORAL TABLET completed ONE TAB TWICE DAILY - Rajni Nassar CALCIUM TABS completed 1 tablet by mouth daily - Susan O'Prudencio VITAMIN D 1000 UNIT CAPS completed 1 tablet by mouth daily - Susan O'Prudencio VITAMIN D 67654 UNIT CAPS completed 1 capsule by mouth once a week for 12 weeks - Susan Hunter'Prudencio RANITIDINE HCL 150 MG ORAL TABLET completed 2 tablets by mouth at bedtime - Trisha Phipps Zoloft 100 mg tablet completed 1 tablet by mouth once a day - Mela Munroe COREG 12.5 MG ORAL TABLET completed ONE TAB. TWICE DAILY - Dereje Steinberg MD DIOVAN 160 MG ORAL TABLET completed ONE TAB. DAILY - Dereje Steinberg MD Imitrex 6 mg/0.5 mL solution active as needed Nikki Tavera NP ACIPHEX 20 MG ORAL TABLET DELAYED RELEASE completed 1 tablet by mouth twice daily - Susan Wick CRESTOR 20 MG ORAL TABLET completed 1 tablet by mouth daily - Dereje Steinberg MD SOCIAL HISTORY Date Observation Value Provider personal history of marijuana use no Beatriz Ventimiglia [facility] drug use no Beatriz Ventimig miri [facility] alcohol use no Beatriz Ventimig miri [facility] passive cigarette sm ora exposure no Beatriz Ventimiglia [facility] smoking status Never smoker Beatrizdonna Woodm iglia [facility] drug use no Dereje Barboza alcohol use no Dereje Barboza passive cigarette sm ora exposure no Dereje Steinberg MD smoking status Never smoker Dereje Steinberg MD drug use no Dereje Steinberg M D alcohol use no Dereje Steinberg M D passive cigarette sm ora exposure no Dereje Steinberg MD smoking status Never smoker Dereje Steinberg MD drug use no Dereje La D alcohol use no Dereje La D passive cigarette sm ora exposure no Dereje Steinberg MD smoking status Never smoker Dereje Steibnerg MD social history E&M Marital Statu s: C hildren: No children L nichole with family/friends E thnicity: Smoking History: P atmarie has never smoked. Dereje Steinberg MD social history reviewed E&M revi ewed - no changes required Dereje Steinberg MD smoking status Never smoker Nikki Amaro social history E&M Marital Statu s: C hildren: No children L nichole with family/friends E thnicity: S moking History: P atient has never smoked. Dereje Steinberg MD social history reviewed E&M revi ewed - no changes required Dereje Steinberg MD social history E&M Marital Statu s: C hildren: No children L nichole with family/friends E thnicity: Smoking History: P atmarie has never smoked. Dereje Steinberg MD social history reviewed E&M revi ewed - no changes required Dereje Steinberg MD physical exercise, frequency, days per week no Alie Cruz caffeine use, averag e drinks per day yes Alie Cruz passive cigarette sm ora exposure no Alie Cruz smoking status Never smoker Alie klein physical exercise, frequency, days per week no Cintia Carranza caffeine use, averag e drinks per day yes Cintia Carranza passive cigarette sm ora exposure no Cintia Carranza smoking status Never smoker Cintia Mica aguila physical exercise, frequency, days per week no Danae Osorioford caffeine use, averag e drinks per day yes Danae Osorioford passive cigarette sm ora exposure no Danae Allred smoking status Never smoker Danae Hankins jorden social history E&M Marital Statu s: Ty bettencourt: No children L nichole with family/friends E thnicity: Smoking History: P atmaire has never smoked. Dereje Steinberg MD social history reviewed E&M revi ewed - no changes required Dereje Steinberg MD physical exercise, frequency, days per week no Cintia Carranza caffeine use, averag e drinks per day yes Cintia Carranza passive cigarette sm ora exposure no Cintia Carranza smoking status Never smoker Cintia Mica aguila social history E&M Marital Statu s: Ty nuren: No children L nichole with family/friends E thnicity: Smoking History: P atmarie has never smoked. Dereje Steinberg MD social history reviewed E&M revi ewed - no changes required Dereje Steinberg MD physical exercise, frequency, days per week no Alie Cruz caffeine use, averag e drinks per day yes Alie Cruz passive cigarette sm ora exposure no Alie Cruz smoking status Never smoker Alie klein smoking status Never smoker Nikki Parkinsondavid in [employer] physical exercise, frequency, days per week no Tonsrogerio Teresa caffeine use, averag e drinks per day yes Tonsrogerio Teresa passive cigarette sm ora exposure no Tonsha Teresa social history E&M Marital Statu s: Ty lucianodren: No children L nichole with family/friends E thnicity: Smoking History: P jose has never smoked. Dereje Steinberg MD social history reviewed E&M revi ewed - no changes required Dereje Steinberg MD physical exercise, frequency, days per week no Andreina Yu alcohol use, average drinks per day social basis only Andreina Yu alcohol use no Andreina Yu caffeine use, averag e drinks per day yes Andreina Yu drug use no Andreina Yu passive cigarette sm ora exposure no Andreina Yu smoking status Never smoker [facility] social history E&M Marital Statu s: Ty lucianodren: No children L nichole with family/friends E thnicity: Smoking History: Amos garcia has never smoked. Dereje Steinberg MD social history reviewed E&M revi ewed - no changes required Dereje Steinberg MD physical exercise, frequency, days per week no FrancineBev Lees alcohol use, average drinks per day social basis only FrancineBev Lees alcohol use no Francine Ivey declan caffeine use, averag e drinks per day yes FrancineBev Lees drug use no Francine Ivey declan passive cigarette sm ora exposure no Francine Lees smoking status Never smoker Francine Facundo yates social history E&M Marital Statu s: Ty hildren: No children L nichole with family/friends E thnicity: Smoking History: Amos garcia has never smoked. Dereje Steinberg MD social history reviewed E&M revi ewed - no changes required Dereje Steinberg MD physical exercise, frequency, days per week no Alie Crzu alcohol use, average drinks per day social basis only Alie Cruz alcohol use no Alie Valdivia cyndieer caffeine use, averag e drinks per day yes Alie Cruz drug use no Alie Valdivia lder passive cigarette sm ora exposure no Alie Cruz smoking status Never smoker Alie Dickerson latoya social history reviewed E&M revi ewed - no changes required Dereje Steinberg MD physical exercise, frequency, days per week no rFancine Lees alcohol use, average drinks per day social basis only Francine Lees alcohol use no Francine Ivey declan caffeine use, averag e drinks per day yes Francine Lees drug use no Francine Ivey [place] passive cigarette sm ora exposure no Francine Lees smoking status Never smoker Francine Collins social history reviewed E&M revi ewed - no changes required Dereje Steinberg MD social history reviewed E&M reviewed [place] RN social history reviewed E&M reviewed [place] RN social history reviewed E&M reviewed [place] RN drug use no Dereje Barboza passive cigarette sm ora exposure no Dereje Steinberg MD social history reviewed E&M reviewed Dereje Steinberg MD smoking status never smoker Rajni Nassar social history reviewed E&M reviewed [place] RN social history reviewed E&M reviewed Dereje Steinberg MD social history reviewed E&M reviewed Dereje Steinberg MD social history reviewed E&M reviewed [place] RN social history reviewed E&M reviewed Dereje Steinberg MD social history reviewed E&M reviewed [place] RN social history E&M Marital Statu s: C hildren: No children L nichole with family/friends E thnicity: Dereje Steinberg MD number of children No children Dereje peterson MD social history reviewed E&M reviewed Dereje Steinberg MD physical exercise, frequency, days per week no [employer] caffeine use, averag e drinks per day yes [facility] alcohol use, average drinks per day social basis only [facility] smoking status Non-smoker [facility] FUNCTIONAL STATUS Date Observation Value Provider HRA, CV Assess/Plan, Angina (inactive) Management Plan continue current therapy Dereje Steinberg MD periodic limb movement index absent (0) Marilee Eunice MENTAL STATUS Date Observation Value Provider assessment of judgme nt and insight E&M Alert and oriented to time, place and person. Mood and affect are normal. Chicho West RN assessment of judgme nt and insight E&M Alert and oriented to time, place and person. Mood and affect are normal. Nikki Pedro NP assessment of judgme nt and insight E&M Alert and oriented to time, place and person. Mood and affect are normal. [place]o [place] RN energy level yes Jose Rafael Lewis energy level yes Alejo Manacop energy level yes Alejo Manacop energy level yes Alejo Manacop energy level yes Alejo Manacop energy level yes Alejo Manacop energy level yes Alejo Manacop energy level yes Alejo Manacop energy level no Alejo Manacop energy level yes Alejo Manacop energy level yes Alejo Manacop energy level yes Alejo Manacop energy level yes Alejo Manacop energy level yes Alejo Manacop energy level yes Alejo Manacop assessment of judgme nt and insight E&M Alert and oriented to time, place and person. Mood and affect are normal. Nikki Pedro NP energy level yes Alejo Manacop energy level no Alejo Manacop energy level no Alejo Manacop energy level no Alejo Manacop energy level no Alejo Manacop energy level no Alejo Manacop energy level no Alejo Manacop energy level no Alejo Manacop energy level yes Alejo Manacop energy level no Alejo Manacop energy level no Alejo Manacop energy level no Alejo Manacop energy level no Alejo Manacop energy level no Alejo Manacop energy level no Alejo Manacop energy level yes Alejo Manacop energy level yes Alejo Manacop energy level no Alejo Manacop energy level no Alejo Manacop energy level no Alejo Manacop assessment of judgme nt and insight E&M Alert and oriented to time, place and person. Mood and affect are normal. Chicho West RN assessment of judgme nt and insight E&M Alert and oriented to time, place and person. Mood and affect are normal. Dereje Steinberg MD assessment of judgme nt and insight E&M Alert and oriented to time, place and person. Mood and affect are normal. Ch[place]o West RN assessment of judgme nt and insight E&M Alert and oriented to time, place and person. Mood and affect are normal. Dereje Steinberg MD assessment of judgme nt and insight E&M Alert and oriented to time, place and person. Mood and affect are normal. Dereje Steinberg MD assessment of judgme nt and insight E&M Alert and oriented to time, place and person. Mood and affect are normal. Chicho West RN assessment of judgme nt and insight E&M Alert and oriented to time, place and person. Mood and affect are normal. Dereje Steinberg MD assessment of judgme nt and insight E&M Alert and oriented to time, place and person. Mood and affect are normal. Chicho West RN assessment of judgme nt and insight E&M Alert and oriented to time, place and person. Mood and affect are normal. Dereje Steinberg MD FAMILY HISTORY Family Member Condition Father Family History of Hy pertension: Mother Family History of Hy pertension: INSURANCE PROVIDERS Payer name Policy type / Coverage type Prabhjot red republican ID [employer] MEDICARE SMARTFIT (PPO) Medicare 10 [id number] ADVANCE DIRECTIVES Name Date DISCUSSED - NO DECISION MADE TREATMENT PLAN Date Name Performer [id number],NDereje MD [id number],S,nml b21 Jason Steinberg MD [id number],SDereje MD [id number],S, Dereje smith MD [id number],NDereje MD [id number],B, u po to dsate on colon Dereje Steinberg MD [id number],S, n o change in the many Dereje Steinberg MD [id number],S, m ild difufes Dereje Steinberg MD [id number],B, e cho with normal EF. n ml pro Dereje Steinberg MD [id number],B, H er updated medication list for this problem includes: Aspirin 81 Mg Tablet,delayed Release (dr/ec) (Aspirin) ..... Take 1 tablet by mouth every day BP today: 145/98 P rior BP: 129/84 (08/21/2021) Prior 10 Yr Risk Heart Disease: N/A (09/17/2012) Labs Reviewed: C reat: 0.73 (09/04/2021) C hol: 131 (09/04/2021) HDL: 48 (09/04/2021) LDL: 65 MG/DL (CALC) (09/04/2021) T (09/04/2021) Dereje Steinberg MD [id number],S,e ng uacr n eg floate n eg tsh n eg egfr n eg ihs net lipase e gfr 83 neg hiv n ml a1c b 12 ok on her own rx, nml tsh and zero lydia score, NEG EVENT ,neg renal us, abnl nuc with noraml cath n eg ct pe Dereje Steinberg MD [id number],S, m ild mr and tr p ap25 Dereje Steinberg MD [id number],C,mild mr and t r Dereje Steinberg MD [id number],S, m ild difufes Dereje Steinberg MD [id number],S, Dereje smith MD [id number],S, Dereje smith MD [id number],S, e cho with normal EF. n ml pro Dereje Steinberg MD [id number],S, Dereje smith MD [id number],S,u po to dsate on colon Dereje Steinberg MD [id number],S,n eg tsh n eg ihs net lipase e gfr 83 neg hiv n ml a1c b 12 ok on her own rx, nml tsh and zero lydia score, NEG EVENT ,neg renal us, abnl nuc with noraml cath n eg ct pe Dereje Steinberg MD [id number],S, Dereje smtih MD [id number],S, n o change in the many Dereje Steinberg MD [id number],C,no change in the manhy Dereje Steinberg MD [id number],S, Nikki toure [employer] [id number],S, Nikki toure [employer] [id number],S,echo with nor mal EF. Nikki Tavera [employer] [id number],S,repeat lipid panel Nikki Tavera [employer] [id number],S,takes oral barrera pplement Nikki Tavera [employer] [id number],C,f ollows pulmonary E cho 06/2021 EF 60% Nikki Tavera [employer] [id number],W,w ill check thyroid function studies, CBC Nikki Tavera [employer] [id number],C,ef 60 Dereje Steinberg MD [id number],S, Dereje smith MD [id number],S, Dereje smith MD [id number],B, Dereje Steinberg MD [id number],S,mild difufes Dereje Steinberg MD [id number],C, H er updated medication list for this problem includes: Lipitor 80 Mg Tablet (Atorvastatin) ..... 1 tablet once a day C HOL: 137 (09/14/2016) LDL: 66 MG/DL (CALC) (09/14/2016) HDL: 51 (09/14/2016) T (09/14/2016) C HOL (goal): 200 (01/12/2014) LDL (goal): 100 (01/12/2014) HDL (goal): 40 (01/12/2014) TG (goal): 150 (01/12/2014) Dereje Steinberg MD [id number],S,n eg ihs n ml a1c b 12 ok on her own rx, nml tsh and zero lydia score, NEG EVENT ,neg renal us, abnl nuc with noraml cath n eg ct pe Dereje Steinberg MD [id number],S, Dereje smith MD [id number],S, C T scan reviewed with patient. Plan to repeat in 6 months. Patient to obtain CD of CT and saw pulmonary MD of her choice. Dereje Steinberg MD [id number],S,up tp date on colon Dereje Steinberg MD [id number],S,e f 60 p ro 96 Dereje Steinberg MD [id number],C,pro 96 Dereje Steinberg MD [id number],S, Nikki toure NP [id number],S, Nikki toure NP [id number],C,added Zetia. Nikki Tavera NP [id number],C,C T scan reviewed with patient. Plan to repeat in 6 months. Patient to obtain CD of CT and see pulmonary MD of her choice. Nikki Tavera NP [id number],S,Will review l abs from PCP Nikki Pedro NP [id number],S,Will repeat e cho next year Nikki Pedro NP [id number],S,W ill have her bring in labwork from PCP on next visit H er updated medication list for this problem includes: Lipitor 80 Mg Oral Tablet (Atorvastatin calcium) ..... One tab. daily Nikki Pedro NP [id number],S,Will repeat c hest CT Nikki Pedro NP :5.8 Dereje Steinberg MD Cardiology:weight lo ss encouraged w ill begin Wegovy for weight management and glycemic control Beatrizdonna Flores [facility] Cardiology: H er updated medication list for this problem includes: Ezetimibe 10 Mg Tablet (Ezetimibe) ..... Take 1 tablet by mouth every day with atorvastatin Atorvastatin 80 Mg Tablet (Atorvastatin) ..... Take 1 tablet by mouth every day Beatriz Flores [facility] Cardiology:mild arterial disease on last PAT Beatrizdonna Flores [facility] Cardiology: H er updated medication list for this problem includes: Norvasc 10 Mg Tablet (Amlodipine) ..... Take 1 tablet by mouth once a day Aspirin 81 Mg Tablet,delayed Release (dr/ec) (Aspirin) ..... Take 1 tablet by mouth every [facility] Cardiology:BNP <20 o n last labs E F remains normal c ontinue present meds Beatrizdonna Brookegina [facility] Cardiology:She would benefit from Wegovy as she has arthersclerotic disease in setting of previous TIA and PVD. She is pre-diabetic and obese with a BMI of 30. [facility] :ef 60 2023, pro neg Dereje ward MD :6.2 Dereje Steinberg MD Cardiology:neg liaps xse donna myalse n eg hp luis alberto scan and abd ct Dereje Steinberg MD Cardiology:off iron due to constiopain u po to dsate on colon Dereje Steinberg MD Cardiology: n eg pet 24 e ng uacr n eg floate n eg tsh n eg egfr n eg ihs net lipase e gfr 83 neg hiv b 12 ok on her own rx, nml tsh and zero lydia score, NEG EVENT ,neg renal us, abnl nuc with noraml cath n eg ct pe Dereje Steinberg MD Cardiology: n ml b21 and pos rpr to get lumbar puntios, but was cancled when repetat was negabie Dereje Steinberg MD Cardiology Dereje Steinberg MD Cardiology: 6 total everythgn done besides loop Dereje Steinberg MD Cardiology: 5 .7 Dereje Steinberg MD Cardiology: m ild difufes Dereje Steinberg MD Cardiology: b zahra Dereje Steinberg MD Cardiology: H er updated medication list for this problem includes: Ezetimibe 10 Mg Tablet (Ezetimibe) ..... Take 1 tablet by mouth every day with atorvastatin Atorvastatin 80 Mg Tablet (Atorvastatin) ..... Take 1 tablet by mouth every day Dereje Steinberg MD Cardiology:off rx pe r primay H er updated medication list for this problem includes: Synthroid 25 Mcg Tablet (Levothyroxine) ..... 1 tablet by mouth once a day Labs Reviewed: T SH: 2.37 (09/04/2021) Total T4: 7.1 (09/04/2021) H gBA1c: 5.6 % OF TOTAL HGB (07/11/2018) C hol: 126 (07/10/2023) HDL: 59 (07/10/2023) LDL: 51 (07/10/2023) T (07/10/2023) Dereje Steinberg MD Cardiology Dereje Steinberg MD Dereje Steinberg MD Cardiology: b zahra Dereje Steinberg MD Cardiology:6 total everythgn don e besides loop Dereje Steinberg MD Cardiology: m ild difisac Steinberg MD Cardiology: 5 .7 Dereje Steinberg MD Cardiology Dereje Steinberg MD Cardiology: H er updated medication list for this problem includes: Ezetimibe 10 Mg Tablet (Ezetimibe) ..... Take 1 tablet by mouth every day with atorvastatin Atorvastatin 80 Mg Tablet (Atorvastatin) ..... Take 1 tablet by mouth every day C HOL: 126 (07/10/2023) LDL: 51 (07/10/2023) HDL: 59 (07/10/2023) T (07/10/2023) C HOL (goal): 200 (01/12/2014) LDL (goal): 100 (01/12/2014) HDL (goal): 40 (01/12/2014) TG (goal): 150 (01/12/2014) Dereje Steinberg MD Cardiology: e cho with normal EF. n ml pro Dereje Steinberg MD Cardiology Dereje Steinberg MD Cardiology Dereje Steinberg MD Cardiology: u po to dsate on colon Dereje Steinberg MD Cardiology: n ml b21 and pos rpr to get lumbar puntios Dereje Steinberg MD Cardiology:neg pet 2 4 e ng uacr n eg floate n eg tsh n eg egfr n eg ihs net lipase e gfr 83 neg hiv b 12 ok on her own rx, nml tsh and zero lydia score, NEG EVENT ,neg renal us, abnl nuc with noraml cath n eg ct pe Dereje Steinberg MD Cardiology: n ml b21 Dereje Steinberg MD Cardiology Dereje Steinberg MD Cardiology Dereje Steinberg MD Cardiology:5.7 Dereje Steinberg MD Cardiology: u po to dsate on colon Dereje Steinberg MD Cardiology: m ild mario Steinberg MD Cardiology Dereje Steinberg MD Cardiology: n o change in the many Dereje Steinberg MD Cardiology: e ng uacr n eg floate n eg tsh n eg egfr n eg ihs net lipase e gfr 83 neg hiv b 12 ok on her own rx, nml tsh and zero lydia score, NEG EVENT ,neg renal us, abnl nuc with noraml cath n eg ct pe Dereje Steinberg MD Cardiology: e cho with normal EF. n ml pro Dereje Steinberg MD Cardiology:breif Dereje Barboza Cardiology Dereje Steinberg MD Cardiology Dereje Steinberg MD Cardiology:nml b21 Dereje Steinberg MD Cardiology Dereje Steinberg MD Cardiology Dereje Steinberg MD Cardiology Dereje Steinberg MD Cardiology: u po to dsate on colon Dereje Steinberg MD Cardiology: n o change in the many Dereje Steinberg MD Cardiology: m ild mario Steinberg MD Cardiology: e cho with normal EF. n ml pro Dereje Steinberg MD Cardiology: H er updated medication list for this problem includes: Aspirin 81 Mg Tablet,delayed Release (dr/ec) (Aspirin) ..... Take 1 tablet by mouth every day BP today: 145/98 P rior BP: 129/84 (08/21/2021) Prior 10 Yr Risk Heart Disease: N/A (09/17/2012) Labs Reviewed: C reat: 0.73 (09/04/2021) C hol: 131 (09/04/2021) HDL: 48 (09/04/2021) LDL: 65 MG/DL (CALC) (09/04/2021) T (09/04/2021) Dereje Steinberg MD Cardiology:eng uacr n eg floate n eg tsh n eg egfr n eg ihs net lipase e gfr 83 neg hiv n ml a1c b 12 ok on her own rx, nml tsh and zero lydia score, NEG EVENT ,neg renal us, abnl nuc with noraml cath n eg ct pe Dereje Steinberg MD Cardiology: m ild mr and tr p ap25 Dereje Steinberg MD :mild mr and tr Dereje Steinberg MD TeleHealth: m ild mario Steinberg MD TeleHealth Dereje Steinberg MD TeleHealth Dereje Steinberg MD TeleHealth: e cho with normal EF. n ml pro Dereje Steinberg MD TeleHealth Dereje Steinberg MD TeleHealth:upo to ds ate on colon Dereje Steinberg MD TeleHealth:neg tsh n eg ihs net lipase e gfr 83 neg hiv n ml a1c b 12 ok on her own rx, nml tsh and zero lydia score, NEG EVENT ,neg renal us, abnl nuc with noraml cath n eg ct pe Dereje Steinberg MD TeleHealth Dereje Steinberg MD TeleHealth: n o change in the many Dereje Steinberg MD :no change in the manhy Dereje reyna MD Cardiology Nikki Tavera ADVERTISING COPYWRITER Cardiology Nikki Tavera ADVERTISING COPYWRITER Cardiology:echo with normal EF. Nikki Tavera ADVERTISING COPYWRITER Cardiology:repeat lipid panel lanny Tavera ADVERTISING COPYWRITER Cardiology:takes oral supplement Nikki Tavera ADVERTISING COPYWRITER Cardiology:follows p ulmonary E cho 06/2021 EF 60% Nikki Tavera ADVERTISING COPYWRITER Cardiology:will check thyroid fu nction studies, CBC Nikki Tavera ADVERTISING COPYWRITER :ef 62 Dereje Steinberg MD Cardiology Follow up Dereje ward MD Cardiology Follow up Dereje ward MD Cardiology Follow up Dereje ward MD Cardiology Follow up :mild difuf es Dereje Steinberg MD Cardiology Follow up : H er updated medication list for this problem includes: Lipitor 80 Mg Tablet (Atorvastatin) ..... 1 tablet once a day C HOL: 137 (09/14/2016) LDL: 66 MG/DL (CALC) (09/14/2016) HDL: 51 (09/14/2016) T (09/14/2016) C HOL (goal): 200 (01/12/2014) LDL (goal): 100 (01/12/2014) HDL (goal): 40 (01/12/2014) TG (goal): 150 (01/12/2014) Dereje Steinberg MD Cardiology Follow up :neg ihs n ml a1c b 12 ok on her own rx, nml tsh and zero lydia score, NEG EVENT ,neg renal us, abnl nuc with noraml cath n eg ct pe Dereje Steinberg MD Cardiology Follow up Dereje ward MD Cardiology Follow up : C T scan reviewed with patient. Plan to repeat in 6 months. Patient to obtain CD of CT and saw pulmonary MD of her choice. Dereje Steinberg MD Cardiology Follow up :up tp date on colon Dereje Steinberg MD Cardiology Follow up :ef 60 p ro 96 Dereje Steinberg MD :pro 96 Dereje Steinberg MD Cardiology follow up Nikki henriquez ADVERTISING COPYWRITER Cardiology follow up Nikki Bandar henriquez ADVERTISING COPYWRITER Cardiology follow up :added Noelle Tavera NP Cardiology follow up :CT scan reviewed with patient. Plan to repeat in 6 months. Patient to obtain CD of CT and see pulmonary MD of her choice. Nikki Tavera NP Cardiology:Will review labs from PCP Nikki Pedro NP Cardiology:Will repeat echo next year Nikki Pedro NP Cardiology:Will have her bring in labwork from PCP on next visit H er updated medication list for this problem includes: Lipitor 80 Mg Oral Tablet (Atorvastatin calcium) ..... One tab. daily Nikki Pedro NP Cardiology:Will repeat chest CT Nikki Pedro NP Cardiology follow up Dereje ward MD Cardiology follow up Dereje ward MD Cardiology follow up : n ml a1c b 12 ok on her own rx, nml tsh and zero lydia score, NEG EVENT ,neg renal us, abnl nuc with noraml cath n eg ct pe Dereje Steinberg MD Cardiology follow up Dereje ward MD Cardiology follow up : n ml ef 20 a nd 18 Dereje Steinberg MD Cardiology follow up : m ild deiffues Dereje Steinberg MD :mild deiffues Dereje Steinberg MD :nml ef 20 a nd 18 Dereje Steinberg MD Cardiology Follow up Dereje ward MD Cardiology Follow up Dereje ward MD Cardiology Follow up Dereje ward MD Cardiology Follow up : H er updated medication list for this problem includes: Lipitor 80 Mg Oral Tablet (Atorvastatin calcium) ..... One tab. daily C HOL: 137 (09/14/2016) LDL: 66 MG/DL (CALC) (09/14/2016) HDL: 51 (09/14/2016) T (09/14/2016) C HOL (goal): 200 (01/12/2014) LDL (goal): 100 (01/12/2014) HDL (goal): 40 (01/12/2014) TG (goal): 150 (01/12/2014) Dereje Steinberg MD Cardiology Follow up :nomral 18 Dereje Steinberg MD Cardiology Follow up :nml a1c b 12 ok on her own rx, nml tsh and zero lydia score, NEG EVENT ,neg renal us, abnl nuc with noraml cath n eg ct pe Dereje Steinberg MD Cardiology Nikki Tavera NP Cardiology:with Topamax daily an d Imitrex prn. Nikki Tavera NP Cardiology: H er updated medication list for this problem includes: Lipitor 80 Mg Oral Tablet (Atorvastatin calcium) ..... One tab. daily Nikki Tavera NP Cardiology:Up 4 poun ds since last visit. Continue phentermine. Nikki Tavera NP Cardiology:last echo 06/12/2018 with EF 55% stage 1 diastolic dysfunction, trace mitral regurgitaiton Nikki aTvera NP Cardiology follow up Dereje ward MD Cardiology follow up Dereje ward MD Cardiology follow up:5.7 Dereje Steinberg MD Cardiology follow up:55 Dereje reyna MD Cardiology follow up : H er updated medication list for this problem includes: Lipitor 80 Mg Oral Tablet (Atorvastatin calcium) ..... One tab. daily C HOL: 137 (09/14/2016) LDL: 66 MG/DL (CALC) (09/14/2016) HDL: 51 (09/14/2016) T (09/14/2016) C HOL (goal): 200 (01/12/2014) LDL (goal): 100 (01/12/2014) HDL (goal): 40 (01/12/2014) TG (goal): 150 (01/12/2014) Dereje Steinberg MD Cardiology follow up :b12 ok on her own rx, nml tsh and zero lydia score, NEG EVENT Dereje Steinberg MD Cardiology follow up:40 LBS OFF ON RX Dereje Steinberg MD Cardiology follow up Dereje ward MD Cardiology:losing wt on diet med s Dereje Steinberg MD Cardiology: H er updated medication list for this problem includes: Lipitor 80 Mg Oral Tablet (Atorvastatin calcium) ..... One tab. daily C HOL: 137 (09/14/2016) LDL: 66 MG/DL (CALC) (09/14/2016) HDL: 51 (09/14/2016) T (09/14/2016) C HOL (goal): 200 (01/12/2014) LDL (goal): 100 (01/12/2014) HDL (goal): 40 (01/12/2014) TG (goal): 150 (01/12/2014) Dereje Steinberg MD Cardiology:nml home sleep, no gs, neg vd, neg cor angio 09 after abnl nuc, nml stress 13, b`12 ok on rx Dereje Steinberg MD Cardiology:losing wt on diet med asia Steinberg MD Cardiology Dereje Steinberg MD Cardiology Follow up clindest do wn:many ssx will [place] Dereje Steinberg MD Cardiology Follow up clindest do wn Dereje Steinberg MD Cardiology Follow up clindest down:lost 15 pounds on qysmgina Steinberg MD Cardiology Dereej Steinberg MD Cardiology Dereje Steinberg MD Cardiology Dereje Steinberg MD Cardiology Dereje Steinberg MD Cardiology Dereje Steinberg MD Cardiology Dereje Steinberg MD Cardiology Dereje Steinberg MD Cardiology:will try regla Esquivel MD Cardiology Dereje Steinberg MD Cardiology:CHOL: 154 .0 (09/06/2015) LDL: 76.6 (?) (09/06/2015) HDL: 54.0 (09/06/2015) T.0 (09/06/2015) C HOL (goal): 200 (01/12/2014) LDL (goal): 100 (01/12/2014) HDL (goal): 40 (01/12/2014) TG (goal): 150 (01/12/2014) Dereje Steinberg MD Cholesterol manageme nt:Patient presents for lipid clinic. Her triglycerides are still elevated and LDL is extremely low. Will have patient have peripheral blood draw at lab to compare results as she has never had issues with her triglycerides in the past. She will return to lipid clinic to discuss. H er updated medication list for this problem includes: Crestor 40 Mg Tabs (Rosuvastatin calcium) ..... Take one tab by mouth daily Niaspan 500 Mg Cr-tabs (Niacin (antihyperlipidemic)) ..... Take 1 tab at bedtime Nikki Pedro NP routine Dereje Steinberg MD routine: B P today: / Prior BP: 112/68 (05/19/2013) D iscussed lifestyle modifications, diet, antacids/medications, and preventive measures. Handout provided. Dereje Steinberg MD routine Dereje Steinberg MD routine: H er updated medication list for this problem includes: Crestor 40 Mg Tabs (Rosuvastatin calcium) ..... Take one tab by mouth daily Niaspan 500 Mg Cr-tabs (Niacin (antihyperlipidemic)) ..... Take 1 tab at bedtime BP today: / Prior BP: 112/68 (05/19/2013) C HOL: 226 (04/14/2013) T (04/14/2013) C HOL (goal): 200 (04/14/2013) LDL (goal): 100 (04/14/2013) HDL (goal): 40 (04/14/2013) TG (goal): 150 (04/14/2013) Dereje Steinberg MD routine: H er updated medication list for this problem includes: Imitrex Soln (Sumatriptan succinate soln) ..... As needed H eadache diary reviewed. Dereje Steinberg MD routine Dereje Steinberg MD routine Dereje Steinberg MD routine: B P today: / Prior BP: 112/68 (05/19/2013) C ardiac Cath: Normal coronary arteries. LV dysfunction with EF of 35% without AR or MR. Mild PH. Normal left and right heart filling pressures. [facility] (09/21/2008) C arotid Doppler/Duplex: Normal carotid duplex examination. Vertebral flow is antegrade bilaterally. - CNE (09/17/2012) C HOL: 226 (04/14/2013) T (04/14/2013) H gb: 13.2 (10/06/2010) HCT: 40.3 (09/14/2012) Platelets: 241 (09/14/2012) R BC: 4.52 X10E6/UL (10/06/2010) WBC: 7.6 X10E3/UL (10/06/2010) B UN: 11 (10/06/2010) Creat: 0.82 (09/14/2012) Glucose: 87 (10/06/2010) N a+: 138 (09/14/2012) K+: 4.2 (09/14/2012) Cl: 106 (10/06/2010) TSH: 2.10 (09/14/2012) T4 (total): 7.2 (10/06/2010) Orders: C omplete Echo (CPT-68135) Dereje Steinberg MD routine Dereje Steinberg MD routine: O rders: C omplete Echo (CPT-19179) Dereje Steinberg MD routine: B P today: / Prior BP: 112/68 (05/19/2013) C ardiac Cath: Normal coronary arteries. LV dysfunction with EF of 35% without AR or MR. Mild PH. Normal left and right heart filling pressures. [facility] (09/21/2008) C arotid Doppler/Duplex: Normal carotid duplex examination. Vertebral flow is antegrade bilaterally. - CNE (09/17/2012) C HOL: 226 (04/14/2013) T (04/14/2013) H gb: 13.2 (10/06/2010) HCT: 40.3 (09/14/2012) Platelets: 241 (09/14/2012) R BC: 4.52 X10E6/UL (10/06/2010) WBC: 7.6 X10E3/UL (10/06/2010) B UN: 11 (10/06/2010) Creat: 0.82 (09/14/2012) Glucose: 87 (10/06/2010) N a+: 138 (09/14/2012) K+: 4.2 (09/14/2012) Cl: 106 (10/06/2010) TSH: 2.10 (09/14/2012) T4 (total): 7.2 (10/06/2010) Orders: C omplete Echo (CPT-37801) Dereje Steinberg MD routine: O rders: C omplete Echo (CPT-00654) Dereje Steinberg MD routine: H er updated medication list for this problem includes: Crestor 40 Mg Tabs (Rosuvastatin calcium) ..... Take one tab by mouth daily Niaspan 500 Mg Cr-tabs (Niacin (antihyperlipidemic)) ..... Take 1 tab at bedtime BP today: / Prior BP: 112/68 (05/19/2013) C ardiac Cath: Normal coronary arteries. LV dysfunction with EF of 35% without AR or MR. Mild PH. Normal left and right heart filling pressures. [facility] (09/21/2008) C arotid Doppler/Duplex: Normal carotid duplex examination. Vertebral flow is antegrade bilaterally. - CNE (09/17/2012) C HOL: 226 (04/14/2013) T (04/14/2013) H gb: 13.2 (10/06/2010) HCT: 40.3 (09/14/2012) Platelets: 241 (09/14/2012) R BC: 4.52 X10E6/UL (10/06/2010) WBC: 7.6 X10E3/UL (10/06/2010) B UN: 11 (10/06/2010) Creat: 0.82 (09/14/2012) Glucose: 87 (10/06/2010) N a+: 138 (09/14/2012) K+: 4.2 (09/14/2012) Cl: 106 (10/06/2010) TSH: 2.10 (09/14/2012) T4 (total): 7.2 (10/06/2010) Orders: C omplete Echo (CPT-08939) Dereje Steinberg MD routine: O rders: C omplete Echo (CPT-93031) Dereje Steinberg MD routine: B P today: / Prior BP: 112/68 (05/19/2013) H gb: 13.2 (10/06/2010) HCT: 40.3 (09/14/2012) Platelets: 241 (09/14/2012) R BC: 4.52 X10E6/UL (10/06/2010) WBC: 7.6 X10E3/UL (10/06/2010) BUN: 11 (10/06/2010) Creat: 0.82 (09/14/2012) Glucose: 87 (10/06/2010) N a+: 138 (09/14/2012) K+: 4.2 (09/14/2012) Cl: 106 (10/06/2010) CHOL: 226 (04/14/2013) T (04/14/2013) T SH: 2.10 (09/14/2012) T4 (total): 7.2 (10/06/2010) C ardiac Cath: Normal coronary arteries. LV dysfunction with EF of 35% without AR or MR. Mild PH. Normal left and right heart filling pressures. [facility] (09/21/2008) Orders: C omplete Echo (CPT-[id number]) Dereje Steinberg MD routine: H er updated medication list for this problem includes: Xanax 0.5 Mg Tabs (Alprazolam) ..... Prn Dereje Steinberg MD routine Dereje Steinberg MD Hypertension visit:P atient here for HTN visit. BP 112/68. Will make no medication changes at this time. Nikki Pedro NP Lipid management: H er updated medication list for this problem includes: Crestor 10 Mg Tabs (Rosuvastatin calcium) ..... One tab. daily Patient had been taken off Crestor in the past. PCP checked cholesterol 2 weeks ago and stated her numbers were 'high'. She does not have them with her but he restarted her Crestor at 5mg daily. Total choleterol elevated and triglycerides greater than 650. Will increase Crestor and add Vascepa. Return to lipid clinic in one month. Nikki Pedro NP follow up Dereje Steinberg MD follow up Dereje Steinberg MD follow up Dereje Steinberg MD follow up Dereje Steinberg MD follow up Dereje Steinberg MD follow up Dereje Steinberg MD follow up Dereje Steinberg MD follow up: T he following medications were removed from the medication list: Coreg 12.5 Mg Tabs (Carvedilol) ..... One tab. twice daily BP today: 112/85 Prior BP: 122/76 (12/18/2012) Cardiac Cath: Normal coronary arteries. LV dysfunction with EF of 35% without AR or MR. Mild PH. Normal left and right heart filling pressures. [facility] (09/21/2008) C arotid Doppler/Duplex: Normal carotid duplex examination. Vertebral flow is antegrade bilaterally. - CNE (09/17/2012) H gb: 13.2 (10/06/2010) HCT: 40.3 (09/14/2012) Platelets: 241 (09/14/2012) R BC: 4.52 X10E6/UL (10/06/2010) WBC: 7.6 X10E3/UL (10/06/2010) B UN: 11 (10/06/2010) Creat: 0.82 (09/14/2012) Glucose: 87 (10/06/2010) N a+: 138 (09/14/2012) K+: 4.2 (09/14/2012) Cl: 106 (10/06/2010) TSH: 2.10 (09/14/2012) T4 (total): 7.2 (10/06/2010) Dereje Steinberg MD follow up Dereje Steinberg MD follow up: T he following medications were removed from the medication list: Coreg 12.5 Mg Tabs (Carvedilol) ..... One tab. twice daily Her updated medication list for this problem includes: Crestor 20 Mg Tabs (Rosuvastatin calcium) ..... 1 tablet by mouth daily BP today: 112/85 Prior BP: 122/76 (12/18/2012) C ardiac Cath: Normal coronary arteries. LV dysfunction with EF of 35% without AR or MR. Mild PH. Normal left and right heart filling pressures. [facility] (09/21/2008) C arotid Doppler/Duplex: Normal carotid duplex examination. Vertebral flow is antegrade bilaterally. - CNE (09/17/2012) H gb: 13.2 (10/06/2010) HCT: 40.3 (09/14/2012) Platelets: 241 (09/14/2012) R BC: 4.52 X10E6/UL (10/06/2010) WBC: 7.6 X10E3/UL (10/06/2010) B UN: 11 (10/06/2010) Creat: 0.82 (09/14/2012) Glucose: 87 (10/06/2010) N a+: 138 (09/14/2012) K+: 4.2 (09/14/2012) Cl: 106 (10/06/2010) TSH: 2.10 (09/14/2012) T4 (total): 7.2 (10/06/2010) Dereje Steinberg MD follow up Dereje Steinberg MD Hypertension clinic: H er updated medication list for this problem includes: Coreg 12.5 Mg Tabs (Carvedilol) ..... One tab. twice daily Patient presents for hypertension clinic. She is tolerating her medications without difficulty. She states her blood pressures at home are under good control. BP in office today is acceptable. She will continue current medications and return to hypertension clinic in 6 months. Nikki Pedro NP Dereje Steinberg MD Dereje Steinberg MD : B P today: / Prior BP: 128/80 (09/17/2012) D iscussed lifestyle modifications, diet, antacids/medications, and preventive measures. Handout provided. Dereje Steinberg MD : T he following medications were removed from the medication list: Diovan 160 Mg Tabs (Valsartan) ..... One tab. daily Her updated medication list for this problem includes: Coreg 12.5 Mg Tabs (Carvedilol) ..... One tab. twice daily Prior BP: 128/80 (09/17/2012) Prior 10 Yr Risk Heart Disease: N/A (09/17/2012) Labs Reviewed: C reat: 0.82 (09/14/2012) Orders: e Prescribe - Check this box if eRx is used (CPT-G8553) Dereje Steinberg MD : H er updated medication list for this problem includes: Crestor 20 Mg Tabs (Rosuvastatin calcium) ..... 1 tablet by mouth daily BP today: / Prior BP: 128/80 (09/17/2012) Dereje Steinberg MD : O rders: E CP Commercial (CPT-65543) C omplete Echo (CPT-15629) Dereje Steinberg MD : T he following medications were removed from the medication list: Imitrex Soln (Sumatriptan succinate soln) ..... As needed Her updated medication list for this problem includes: Imitrex Soln (Sumatriptan succinate soln) ..... As needed Coreg 12.5 Mg Tabs (Carvedilol) ..... One tab. twice daily H eadache diary reviewed. Orders: E CP Commercial (CPT-94808) Dereje Steinberg MD Dereje Steinberg MD : H er updated medication list for this problem includes: Crestor 20 Mg Tabs (Rosuvastatin calcium) ..... 1 tablet by mouth daily Coreg 12.5 Mg Tabs (Carvedilol) ..... One tab. twice daily BP today: / Prior BP: 128/80 (09/17/2012) C ardiac Cath: Normal coronary arteries. LV dysfunction with EF of 35% without AR or MR. Mild PH. Normal left and right heart filling pressures. [facility] (09/21/2008) C arotid Doppler/Duplex: Normal carotid duplex examination. Vertebral flow is antegrade bilaterally. - CNE (09/17/2012) H gb: 13.2 (10/06/2010) HCT: 40.3 (09/14/2012) Platelets: 241 (09/14/2012) R BC: 4.52 X10E6/UL (10/06/2010) WBC: 7.6 X10E3/UL (10/06/2010) B UN: 11 (10/06/2010) Creat: 0.82 (09/14/2012) Glucose: 87 (10/06/2010) N a+: 138 (09/14/2012) K+: 4.2 (09/14/2012) Cl: 106 (10/06/2010) TSH: 2.10 (09/14/2012) T4 (total): 7.2 (10/06/2010) Orders: E KG (CPT-12535) E CP Commercial (CPT-33114) C omplete Echo (CPT-30072) e Prescribe - Check this box if eRx is used (CPT-G8553) Dereje Steinberg MD Dereje Steinberg MD : O rders: E CP Commercial (CPT-59517) C omplete Echo (CPT-03907) e Prescribe - Check this box if eRx is used (CPT-G8553) Dereje Steinberg MD : O rders: E CP Commercial (CPT-92691) C omplete Echo (CPT-60287) e Prescribe - Check this box if eRx is used (CPT-G8553) Dereje Steinberg MD : T he following medications were removed from the medication list: Diovan 160 Mg Tabs (Valsartan) ..... One tab. daily Her updated medication list for this problem includes: Coreg 12.5 Mg Tabs (Carvedilol) ..... One tab. twice daily BP today: / Prior BP: 128/80 (09/17/2012) C ardiac Cath: Normal coronary arteries. LV dysfunction with EF of 35% without AR or MR. Mild PH. Normal left and right heart filling pressures. [facility] (09/21/2008) C arotid Doppler/Duplex: Normal carotid duplex examination. Vertebral flow is antegrade bilaterally. - CNE (09/17/2012) H gb: 13.2 (10/06/2010) HCT: 40.3 (09/14/2012) Platelets: 241 (09/14/2012) R BC: 4.52 X10E6/UL (10/06/2010) WBC: 7.6 X10E3/UL (10/06/2010) B UN: 11 (10/06/2010) Creat: 0.82 (09/14/2012) Glucose: 87 (10/06/2010) N a+: 138 (09/14/2012) K+: 4.2 (09/14/2012) Cl: 106 (10/06/2010) TSH: 2.10 (09/14/2012) T4 (total): 7.2 (10/06/2010) Orders: E CP Commercial (CPT-86512) C omplete Echo (CPT-23729) e Prescribe - Check this box if eRx is used (CPT-G8553) Dereje Steinberg MD : H er updated medication list for this problem includes: Coreg 12.5 Mg Tabs (Carvedilol) ..... One tab. twice daily BP today: / Prior BP: 128/80 (09/17/2012) C ardiac Cath: Normal coronary arteries. LV dysfunction with EF of 35% without AR or MR. Mild PH. Normal left and right heart filling pressures. [facility] (09/21/2008) C arotid Doppler/Duplex: Normal carotid duplex examination. Vertebral flow is antegrade bilaterally. - CNE (09/17/2012) H gb: 13.2 (10/06/2010) HCT: 40.3 (09/14/2012) Platelets: 241 (09/14/2012) R BC: 4.52 X10E6/UL (10/06/2010) WBC: 7.6 X10E3/UL (10/06/2010) B UN: 11 (10/06/2010) Creat: 0.82 (09/14/2012) Glucose: 87 (10/06/2010) N a+: 138 (09/14/2012) K+: 4.2 (09/14/2012) Cl: 106 (10/06/2010) TSH: 2.10 (09/14/2012) T4 (total): 7.2 (10/06/2010) Orders: E CP Commercial (CPT-36885) C omplete Echo (CPT-39451) e Prescribe - Check this box if eRx is used (CPT-G8553) Dereje Steinberg MD : O rders: E CP Commercial (CPT-02561) C omplete Echo (CPT-48594) e Prescribe - Check this box if eRx is used (CPT-G8553) Dereje Steinberg MD follow up: H er updated medication list for this problem includes: Diovan 160 Mg Tabs (Valsartan) ..... One tab. daily Coreg 12.5 Mg Tabs (Carvedilol) ..... One tab. twice daily Orders: C omplete Echo (CPT-60070) L ipid Strip (CPT-28041) M obile Cardiac Tele (CPT-46533) e Prescribe - Check this box if eRx is used (CPT-G8553) T HYROID PANEL WITH TSH, 3RD GENERATION (2944) C OMPREHENSIVE METABOLIC PANEL W/EGFR (10919) C BC (H/H, RBC, INDICES, WBC, PLT) (1759) V ITAMIN B12 (927) V ITAMIN D, 25-HYDROXY, LC/MS/MS (13844) Dereje Steinberg MD follow up: T he following medications were removed from the medication list: Zantac 150 Mg Tabs (Ranitidine hcl) ..... One tab twice daily Dereje Steinberg MD follow up: H er updated medication list for this problem includes: Imitrex Soln (Sumatriptan succinate soln) ..... As needed Coreg 12.5 Mg Tabs (Carvedilol) ..... One tab. twice daily Imitrex Soln (Sumatriptan succinate soln) ..... As needed Orders: C omplete Echo (CPT-54903) C omplete Echo (CPT-08538) L ipid Strip (CPT-44036) M obile Cardiac Tele (CPT-57657) e Prescribe - Check this box if eRx is used (CPT-G8553) T HYROID PANEL WITH TSH, 3RD GENERATION (7444) C OMPREHENSIVE METABOLIC PANEL W/EGFR (93785) C BC (H/H, RBC, INDICES, WBC, PLT) (1759) V ITAMIN B12 (927) V ITAMIN D, 25-HYDROXY, LC/MS/MS (97785) Dereje Steinberg MD follow up: O rders: C omplete Echo (CPT-20876) L ipid Strip (CPT-36833) M obile Cardiac Tele (CPT-70637) e Prescribe - Check this box if eRx is used (CPT-G8553) T HYROID PANEL WITH TSH, 3RD GENERATION (7444) C OMPREHENSIVE METABOLIC PANEL W/EGFR (13358) C BC (H/H, RBC, INDICES, WBC, PLT) (1759) V ITAMIN B12 (927) V ITAMIN D, 25-HYDROXY, LC/MS/MS (81824) Her updated medication list for this problem includes: Crestor 20 Mg Tabs (Rosuvastatin calcium) ..... 1 tablet by mouth daily Coreg 12.5 Mg Tabs (Carvedilol) ..... One tab. twice daily Dereje Steinberg MD follow up: O rders: C omplete Echo (CPT-81728) C omplete Echo (CPT-20186) L ipid Strip (CPT-42431) M obile Cardiac Tele (CPT-33794) e Prescribe - Check this box if eRx is used (CPT-G8553) T HYROID PANEL WITH TSH, 3RD GENERATION (7444) C OMPREHENSIVE METABOLIC PANEL W/EGFR (26302) C BC (H/H, RBC, INDICES, WBC, PLT) (1759) V ITAMIN B12 (927) V ITAMIN D, 25-HYDROXY, LC/MS/MS (61633) Dereje Steinberg MD follow up: H er updated medication list for this problem includes: Diovan 160 Mg Tabs (Valsartan) ..... One tab. daily Coreg 12.5 Mg Tabs (Carvedilol) ..... One tab. twice daily Orders: C omplete Echo (CPT-27376) C omplete Echo (CPT-77046) L ipid Strip (CPT-89863) M obile Cardiac Tele (CPT-82176) e Prescribe - Check this box if eRx is used (CPT-G8553) T HYROID PANEL WITH TSH, 3RD GENERATION (7444) C OMPREHENSIVE METABOLIC PANEL W/EGFR (47105) C BC (H/H, RBC, INDICES, WBC, PLT) (1759) V ITAMIN B12 (927) V ITAMIN D, 25-HYDROXY, LC/MS/MS (96067) Dereje Steinberg MD follow up: O rders: C omplete Echo (CPT-89070) L ipid Strip (CPT-48739) M obile Cardiac Tele (CPT-39727) e Prescribe - Check this box if eRx is used (CPT-G8553) T HYROID PANEL WITH TSH, 3RD GENERATION (7444) C OMPREHENSIVE METABOLIC PANEL W/EGFR (40287) C BC (H/H, RBC, INDICES, WBC, PLT) (1759) V ITAMIN B12 (927) V ITAMIN D, 25-HYDROXY, LC/MS/MS (75155) Dereje Steinberg MD follow up: H er updated medication list for this problem includes: Coreg 12.5 Mg Tabs (Carvedilol) ..... One tab. twice daily Dereje Steinberg MD follow up: H er updated medication list for this problem includes: Coreg 12.5 Mg Tabs (Carvedilol) ..... One tab. twice daily Orders: C omplete Echo (CPT-25640) M obile Cardiac Tele (CPT-27990) e Prescribe - Check this box if eRx is used (CPT-G8553) T HYROID PANEL WITH TSH, 3RD GENERATION (7444) C OMPREHENSIVE METABOLIC PANEL W/EGFR (03206) C BC (H/H, RBC, INDICES, WBC, PLT) (1759) V ITAMIN B12 (927) V ITAMIN D, 25-HYDROXY, LC/MS/MS (49027) C arotid Duplex Bilateral (CPT-50811) Dereje Steinberg MD follow up Dereje Steinberg MD follow up Dereje Steinberg MD follow up Dereje Steinberg MD follow up Dereje Steinberg MD follow up Dereje Steinberg MD follow up Dereje Steinberg MD follow up Dereje Steinberg MD follow up Dereje Steinberg MD follow up Dereje Steinberg MD follow up Dereje Steinberg MD follow up Dereje Steinberg MD follow up Dereje Steinberg MD follow up: H er updated medication list for this problem includes: Coreg 12.5 Mg Tabs (Carvedilol) ..... One tab. twice daily Orders: C omplete Echo (CPT-96490) e Prescribe - Check this box if eRx is used (CPT-G8553) X -Ray, Chest, PA & Lateral (CPT-54124) D -DIMER, QUANTITATIVE (8659) C OMPREHENSIVE METABOLIC PANEL W/EGFR (55967) C BC (H/H, RBC, INDICES, WBC, PLT) (1759) A MYLASE (243) T HYROID PANEL WITH TSH, 3RD GENERATION (7444) Dereje Steinberg MD follow up: H er updated medication list for this problem includes: Coreg 12.5 Mg Tabs (Carvedilol) ..... One tab. twice daily Orders: C omplete Echo (CPT-91809) e Prescribe - Check this box if eRx is used (CPT-G8553) X -Ray, Chest, PA & Lateral (CPT-62974) D -DIMER, QUANTITATIVE (8659) C OMPREHENSIVE METABOLIC PANEL W/EGFR (31630) C BC (H/H, RBC, INDICES, WBC, PLT) (1759) A MYLASE (243) T HYROID PANEL WITH TSH, 3RD GENERATION (7444) Dereje Steinberg MD follow up: O rders: G allbladder Ultrasound (CPT-71951) C OMPREHENSIVE METABOLIC PANEL W/EGFR (62967) C BC (H/H, RBC, INDICES, WBC, PLT) (1759) A MYLASE (243) Dereje Steinberg MD follow up: H er updated medication list for this problem includes: Coreg 12.5 Mg Tabs (Carvedilol) ..... One tab. twice daily Orders: C OMPREHENSIVE METABOLIC PANEL W/EGFR (27961) C BC (H/H, RBC, INDICES, WBC, PLT) (1759) A MYLASE (243) Dereje Steinberg MD follow up: O rders: e Prescribe - Check this box if eRx is used (CPT-G8553) X -Ray, Chest, PA & Lateral (CPT-35893) D -DIMER, QUANTITATIVE (8659) C OMPREHENSIVE METABOLIC PANEL W/EGFR (79068) C BC (H/H, RBC, INDICES, WBC, PLT) (1759) A MYLASE (243) Dereje Steinberg MD follow up: H er updated medication list for this problem includes: Diovan 160 Mg Tabs (Valsartan) ..... One tab. daily Coreg 12.5 Mg Tabs (Carvedilol) ..... One tab. twice daily Orders: C omplete Echo (CPT-86105) e Prescribe - Check this box if eRx is used (CPT-G8553) X -Ray, Chest, PA & Lateral (CPT-42009) D -DIMER, QUANTITATIVE (8659) C OMPREHENSIVE METABOLIC PANEL W/EGFR (79323) C BC (H/H, RBC, INDICES, WBC, PLT) (1759) A MYLASE (243) Dereje Steinberg MD follow up: H er updated medication list for this problem includes: Crestor 20 Mg Tabs (Rosuvastatin calcium) ..... 1 tablet by mouth daily Coreg 12.5 Mg Tabs (Carvedilol) ..... One tab. twice daily Orders: e Prescribe - Check this box if eRx is used (CPT-G8553) X -Ray, Chest, PA & Lateral (CPT-28742) D -DIMER, QUANTITATIVE (8659) C OMPREHENSIVE METABOLIC PANEL W/EGFR (00774) C BC (H/H, RBC, INDICES, WBC, PLT) (1759) A MYLASE (243) Dereje Steinberg MD follow up: O rders: e Prescribe - Check this box if eRx is used (CPT-G8553) X -Ray, Chest, PA & Lateral (CPT-94575) D -DIMER, QUANTITATIVE (8659) C OMPREHENSIVE METABOLIC PANEL W/EGFR (93220) C BC (H/H, RBC, INDICES, WBC, PLT) (1759) A MYLASE (243) Dereje Steinberg MD follow up: H er updated medication list for this problem includes: Diovan 160 Mg Tabs (Valsartan) ..... One tab. daily Coreg 12.5 Mg Tabs (Carvedilol) ..... One tab. twice daily Orders: C omplete Echo (CPT-32411) e Prescribe - Check this box if eRx is used (CPT-G8553) X -Ray, Chest, PA & Lateral (CPT-99889) D -DIMER, QUANTITATIVE (8659) Dereje Steinberg MD follow up: H er updated medication list for this problem includes: Crestor 20 Mg Tabs (Rosuvastatin calcium) ..... 1 tablet by mouth daily Orders: e Prescribe - Check this box if eRx is used (CPT-G8553) X -Ray, Chest, PA & Lateral (CPT-66803) D -DIMER, QUANTITATIVE (8659) Dereje Setinberg MD follow up Dereje Steinberg MD follow up: T he following medications were removed from the medication list: Aciphex 20 Mg Tbec (Rabeprazole sodium) ..... 1 tablet by mouth twice daily Her updated medication list for this problem includes: Ranitidine Hcl 150 Mg Tabs (Ranitidine hcl) ..... 2 tablets by mouth at bedtime Dereje Steinberg MD nicm on rx: H er updated medication list for this problem includes: Crestor 20 Mg Tabs (Rosuvastatin calcium) ..... 1 tablet by mouth daily Dereje Steinberg MD nicm on rx: H er updated medication list for this problem includes: Diovan 160 Mg Tabs (Valsartan) ..... One tab. daily Coreg 12.5 Mg Tabs (Carvedilol) ..... One tab. twice daily Dereje Steinberg MD nicm on rx: H er updated medication list for this problem includes: Diovan 160 Mg Tabs (Valsartan) ..... One tab. daily Coreg 12.5 Mg Tabs (Carvedilol) ..... One tab. twice daily Dereje Steinberg MD nicm doing well, yasmine l increase coreg again: H er updated medication list for this problem includes: Coreg 12.5 Mg Tabs (Carvedilol) ..... (stronger dose) one tab. twice daily BP today: 126/86 Prior BP: 112/72 (01/19/2009) C ardiac Cath: Normal coronary arteries. LV dysfunction with EF of 35% without AR or MR. Mild PH. Normal left and right heart filling pressures. [facility] (09/21/2008) E chocardiogram: The left ventricular chamber size is normal. Normal left ventricular wall thickness. Normal left v entricular function. LV EF is estimated at 60%. There is E: A reversal of mitral inflow velocities consistent with d iastolic dysfunction. T he mitral valve leaflets appear (sclerotic) thickened. There is trace mitral valve regurgitation. There is trace tricuspid r egurgitation. Right heart pressure could not be adequatly evaluated. [facility] (09/13/2008) Dereje Steinberg MD ganesh doing well, yasmine l increase coreg again: H er updated medication list for this problem includes: Crestor 20 Mg Tabs (Rosuvastatin calcium) ..... 1 tablet by mouth daily BP today: 126/86 Prior BP: 112/72 (01/19/2009) Dereje Steinberg MD ganesh doing well, yasmine l increase coreg again: H er updated medication list for this problem includes: Diovan 160 Mg Tabs (Valsartan) ..... One tab. daily to reduce cough instead of lisinipril Coreg 12.5 Mg Tabs (Carvedilol) ..... (stronger dose) one tab. twice daily BP today: 126/86 P rior BP: 112/72 (01/19/2009) Dereje Steinberg MD edmundm doing well, will increase c oreg again Dereje Steinberg MD nicm doing well, will increase c oreg again Dereje Steinberg MD nicm doing well, yasmine l increase coreg again: H er updated medication list for this problem includes: Diovan 160 Mg Tabs (Valsartan) ..... One tab. daily to reduce cough instead of lisinipril Coreg 12.5 Mg Tabs (Carvedilol) ..... (stronger dose) one tab. twice daily BP today: 126/86 Prior BP: 112/72 (01/19/2009) C ardiac Cath: Normal coronary arteries. LV dysfunction with EF of 35% without AR or MR. Mild PH. Normal left and right heart filling pressures. [facility] (09/21/2008) Dereje Steinberg MD nicm doing well, yasmine l increase coreg again: H er updated medication list for this problem includes: Coreg 12.5 Mg Tabs (Carvedilol) ..... (stronger dose) one tab. twice daily Dereje Steinberg MD nicm doing better, w ill contiuem to increase coreg,: H er updated medication list for this problem includes: Coreg 6.25 Mg Tabs (Carvedilol) ..... (stronger dose) one tab. twice daily & #13;BP today: 112/72 Prior BP: 105/60 (10/20/2008) C ardiac Cath: Normal coronary arteries. LV dysfunction with EF of 35% without AR or MR. Mild PH. Normal left and right heart filling pressures. [facility] (09/21/2008) E chocardiogram: The left ventricular chamber size is normal. Normal left ventricular wall thickness. Normal left v entricular function. LV EF is estimated at 60%. There is E: A reversal of mitral inflow velocities consistent with d iastolic dysfunction. T he mitral valve leaflets appear (sclerotic) thickened. There is trace mitral valve regurgitation. There is trace tricuspid r egurgitation. Right heart pressure could not be adequatly evaluated. [facility] (09/13/2008) Dereje Steinberg MD nicm doing better, will contiuem to increase coreg, Dereje Steinberg MD nicm doing better, will contiuem to increase coreg, Dereje Steinberg MD ganesh doing better, w ill contiuem to increase coreg,: H er updated medication list for this problem includes: Diovan 160 Mg Tabs (Valsartan) ..... One tab. daily to reduce cough instead of lisinipril Coreg 6.25 Mg Tabs (Carvedilol) ..... (stronger dose) one tab. twice daily Dereje Steinberg MD nicchristine doing better, w ill contiuem to increase coreg,: H er updated medication list for this problem includes: Coreg 6.25 Mg Tabs (Carvedilol) ..... (stronger dose) one tab. twice daily Dereje Steinberg MD nicchristine doing better, will contiuem to increase coreg, Dereje Steinberg MD nicchristine doing better, w ill contiuem to increase coreg,: H er updated medication list for this problem includes: Coreg 6.25 Mg Tabs (Carvedilol) ..... (stronger dose) one tab. twice daily Dereje Steinberg MD nicchristine doing better, w ill contiuem to increase coreg,: H er updated medication list for this problem includes: Crestor 20 Mg Tabs (Rosuvastatin calcium) ..... 1 tablet by mouth daily BP today: 112/72 Prior BP: 105/60 (10/20/2008) Dereje Steinberg MD nicm, will start coreg Dereje peterson MD nicm, will start cor eg: B P today: 105/60 Prior BP: 126/89 (09/19/2008) C ardiac Cath: Normal coronary arteries. LV dysfunction with EF of 35% without AR or MR. Mild PH. Normal left and right heart filling pressures. [facility] (09/21/2008) E chocardiogram: The left ventricular chamber size is normal. Normal left ventricular wall thickness. Normal left v entricular function. LV EF is estimated at 60%. There is E: A reversal of mitral inflow velocities consistent with d iastolic dysfunction. T he mitral valve leaflets appear (sclerotic) thickened. There is trace mitral valve regurgitation. There is trace tricuspid r egurgitation. Right heart pressure could not be adequatly evaluated. [facility] (09/13/2008) Dereje Steinberg MD nic, will start cor eg:will try coreg H er updated medication list for this problem includes: Lisinopril 40 Mg Tabs (Lisinopril) ..... One tab. daily Hydrochlorothiazide 25 Mg Tabs (Hydrochlorothiazide) ..... One tab daily BP today: 105/60 Prior BP: 126/89 (09/19/2008) BP today: 105/60 Prior BP: 126/89 (09/19/2008) C ardiac Cath: Normal coronary arteries. LV dysfunction with EF of 35% without AR or MR. Mild PH. Normal left and right heart filling pressures. [facility] (09/21/2008) Dereje Stienberg MD nicm, will start cor eg: H er updated medication list for this problem includes: Lisinopril 40 Mg Tabs (Lisinopril) ..... One tab. daily Hydrochlorothiazide 25 Mg Tabs (Hydrochlorothiazide) ..... One tab daily BP today: 105/60 P rior BP: 126/89 (09/19/2008) Dereje Steinberg MD nic, will start cor eg: H er updated medication list for this problem includes: Imitrex Soln (Sumatriptan succinate soln) ..... As needed H eadache diary reviewed. Dereje Steinberg MD nicm, will start cor eg: H er updated medication list for this problem includes: Lisinopril 40 Mg Tabs (Lisinopril) ..... One tab. daily Dereje Steinberg MD nic, will start coreg Dereje peterson MD nic, will start cor eg: H er updated medication list for this problem includes: Crestor 10 Mg Tabs (Rosuvastatin calcium) ..... One tab. daily Dereje Steinberg MD nic, will start cor eg: H er updated medication list for this problem includes: Lisinopril 40 Mg Tabs (Lisinopril) ..... One tab. daily Dereje Steinberg MD postive stress, will cath: H er updated medication list for this problem includes: Imitrex Soln (Sumatriptan succinate soln) ..... As needed H angeladache diary reviewed. Dereje Steinberg MD postive stress, will cath: H er updated medication list for this problem includes: Lisinopril 40 Mg Tabs (Lisinopril) ..... One tab. daily instead of verapamil to reduce edema BP today: 126/89 Prior BP: / () E chocardiogram: The left ventricular chamber size is normal. Normal left ventricular wall thickness. Normal left v entricular function. LV EF is estimated at 60%. There is E: A reversal of mitral inflow velocities consistent with d iastolic dysfunction. T he mitral valve leaflets appear (sclerotic) thickened. There is trace mitral valve regurgitation. There is trace tricuspid r egurgitation. Right heart pressure could not be adequatly evaluated. [facility] (09/13/2008) Orders: H olter Monitor 24 Hr (CPT-73513) Dereje Stienberg MD postive stress, will cath Dereje Steinberg MD postive stress, will cath: H er updated medication list for this problem includes: Lisinopril 40 Mg Tabs (Lisinopril) ..... One tab. daily instead of verapamil to reduce edema Hydrochlorothiazide 25 Mg Tabs (Hydrochlorothiazide) ..... One tab daily BP today: 126/89 Dereje Steinberg MD postive stress, will cath: H er updated medication list for this problem includes: Lisinopril 40 Mg Tabs (Lisinopril) ..... One tab. daily instead of verapamil to reduce edema Orders: E KG (CPT-17568) BP today: 126/89 Prior BP: / () E chocardiogram: The left ventricular chamber size is normal. Normal left ventricular wall thickness. Normal left v entricular function. LV EF is estimated at 60%. There is E: A reversal of mitral inflow velocities consistent with d iastolic dysfunction. T he mitral valve leaflets appear (sclerotic) thickened. There is trace mitral valve regurgitation. There is trace tricuspid r egurgitation. Right heart pressure could not be adequatly evaluated. [facility] (09/13/2008) Dereje Steinberg MD postive stress, will cath: O rders: C ardiac Cath - PCL (*) Dereje Steinberg MD Date Name CT, Coronary Calcium Score HEPATITIS PANEL Abdominal US LIPID PANEL HEMOGLOBIN A1c COMPREHENSIVE METABO LIC PANEL, W/EGFR PROBNP, N TERMINAL TSH, free T4, total T3 HEMOGLOBIN A1c Holter Monitor 24 Hr Complete Echo BASIC METABOLIC PANE L W/EGFR TSH, free T4, total T3 Lipoprotein (a) Complete Echo PROTHROMBIN TIME WIT H INR IRON AND TOTAL IRON BINDING CAPACITY FERRITIN CBC (INCLUDES DIFF/P LT) Stress Cardiac PET-C T CXR- PA/Lat RPR (MONITOR) W/REFL TITER COMPREHENSIVE METABO LIC PANEL, W/EGFR LIPID PANEL Complete Echo Creatinine, Serum CT Angio Head CT Angio, Carotids Stress Cardiac PET-C T CT, Coronary Calcium Score Monitor - Telemetry (Mobile Cardiac) Complete Echo RPM (remote patient monitoring) Complete Echo Microalb/Creatinine Urine, Random CT Chest without con trast LIPID PANEL IRON AND TOTAL IRON BINDING CAPACITY FERRITIN CBC (INCLUDES DIFF/P LT) TSH, free T4, total T3 COMPREHENSIVE METABO LIC PANEL, W/EGFR COMPREHENSIVE METABO LIC PANEL, W/EGFR CBC (INCLUDES DIFF/P LT) C-REACTIVE PROTEIN LIPID PANEL Complete Echo PROBNP, N TERMINAL IRON AND TOTAL IRON BINDING CAPACITY FERRITIN CXR- PA/Lat DLCO - 69872 FRC - 19052 FVC - [address] Chest without con trast Complete Echo Arterial Duplex Bi-L ower EX Complete Echo HEMOGLOBIN A1c CT, Coronary Calcium Score Complete Echo Vitamin D, 25-Hydrox y HEMOGLOBIN A1c URINALYSIS, RANDOM, MICROALB/CREATININE Sleep Study Home HEMOGLOBIN A1c VITAMIN B12 IRON AND TOTAL IRON BINDING CAPACITY Complete Echo COMPREHENSIVE METABO LIC PANEL W/EGFR LIPID PANEL VITAMIN D, 25-HYDROX Y, LC/MS/MS LIPID PANEL Complete Echo Complete Echo Complete Echo ECP Commercial X-Ray, Chest, PA & L ateral STR - Routine Carotid Duplex Bilat eral VITAMIN D, 25-HYDROX Y, LC/MS/MS VITAMIN B12 CBC (H/H, RBC, INDIC ES, WBC, PLT) COMPREHENSIVE METABO LIC PANEL W/EGFR THYROID PANEL WITH T SH, 3RD GENERATION Mobile Cardiac Tele Complete Echo Complete Echo THYROID PANEL WITH T SH, 3RD GENERATION AMYLASE CBC (H/H, RBC, INDIC ES, WBC, PLT) COMPREHENSIVE METABO LIC PANEL W/EGFR Gallbladder Ultrasou nd D-DIMER, QUANTITATIV E X-Ray, Chest, PA & L ateral Complete Echo Complete Echo MUGA (LVEF) Holter Monitor 24 Hr Cardiac Cath - PCL HISTORY OF PROCEDURES Procedure Date Procedure Name Provider Procedure Notes S tatus CT- Coronary CA score Dereje Steinberg MD completed Complex e/m visit add on Dereje Steinberg MD completed Complex e/m visit add on Dereje Steinberg MD completed EKG Dereje Steinberg MD complete d EKG Dereje Steinberg MD complete d EKG Dereje Steinberg MD complete d EKG Dereje Steinberg MD complete d EKG Dereje Steinberg MD complete d CT- Coronary CA score Dereje Steinberg MD completed SNOMED-CT: [id number] Current Medications Documented Dereje Steinberg MD completed EKG Dereje Steinberg MD complete d SNOMED-CT: 565127826 [id number] Current Medications Documented Dereje Steinberg MD completed EKG Dereje Steinberg MD complete d SNOMED-CT: [id number] 275711 Current Medications Documented Dereje Steinberg MD completed EKG Dereje Steinberg MD complete d EKG Dereje Steinberg MD complete d EKG Dereje Steinberg MD complete d ePrescribe - Check t his box if eRx is used Dereje Steinberg MD completed EKG Dereje Steinberg MD complete d ePrescribe - Check t his box if eRx is used Dereje Steinberg MD completed Lipid Strip Dereje Steinberg MD complet ed ePrescribe - Check t his box if eRx is used Dereje Steinberg MD completed JEWEL Steinberg MD complete d ePrescribe - Check t his box if eRx is used Dereje Steinberg MD completed JEWEL Steinberg MD complete d JEWEL Steinberg MD complete d
--- OUTSIDE RECORDS SUMMARY | 2024-11-26 09:59 | XMS_ITS | Data Portability ---
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 Plan of Treatment Reminders Order Date Submit Date Provider Last Modified By Organization Details Last Modified Time Details Appointments None recorded. Lab bacterial vaginosis + vaginitis panel, vaginal 2023 024 [employer] Brett, [address] [place], [address], 4 09:05:58 pap, LB 2023 024 [employer] [facility], [address] [place], [address], 4 12:22:24 HPV E6+E7 mRNA, qualitative PCR, cervix 2023 024 [employer] Brett, [address] [place], [address], 4 09:05:57 HIV 1+2 Ab + HIV1 p24 Ag, quantitativ e immunoassay , serum 2021 022 [employer] [facility], [address] [place], [address], 2 13:14:19 HBsAg (hepatitis B surface Ag), serum 2021 022 [employer] [facility], [address] [place], [address], 2 13:14:18 hsv (1+2) igg, serum 2021 022 [facility], [address] [place], [address], 2 13:14:19 hepatitis C virus Ab, serum 2021 022 [facility], [address] [place], [address], 2 13:14:19 RPR (rapid plasma reagin), serum 2021 [facility], [address] [place], [address], 2 13:14:20 bacterial vaginosis + vaginitis panel, vaginal 2021 022 [facility] [employer] Brett, [address] [place], [address], 2 15:32:48 HPV E6+E7 mRNA, qualitative PCR, cervix 2021 022 [facility] [place] [facility], [address] [place], [address], 2 16:41:01 pap, LB 2021 022 [facility], [address] [place], [address], 2 14:00:04 Referral cardiologis t referral [email or web address] Cardiology Department, [address] [place] [address], [address], 3 12:59:23 Procedures None recorded. Surgeries None recorded. Imaging US, transvagina l 04/18/ 2024 04/19/2 024 SOURAV Not available 4 23:01:58 MAMMO, screening, digital, bilateral 2022 023 [email or web address] Not available 3 10:54:39 Medication Orders estradiol 10 mcg vaginal tablet 2023 024 [email or web address] [id number], [address], [place], [address], 4 10:28:20 Macrobid 100 mg capsule 2022 023 [email or web address] [facility][id number], [address], [place], [address], 4 10:31:15 nystatin-tr iamcinolone 100,000 unit/gram-0 .1 % topical ointment 2021 023 SOURAV [facility] #[id number], [address], [place], [address], 3 10:14:49 Yuvafem 10 mcg vaginal tablet 2021 022 [email or web address] 1 [facility] [id number], [address], 2 10:05:16 Patient TargetsNo targets recorded. Patient Instructions Encounter Date Encounter Id Patient Instructions Last Modified By Organization Details Last Modified Time 09/03/2021 [id number] atrophic vaginitis: care instructions Not available 09/03/2021 12:41:48 Patient Health Questionnaire-9* [email or web address] Not available 12/04/2021 12:08:58 A healthy lifestyle: care instructions Not available 09/03/2021 12:41:48 depression (wome n only) Not available 09/03/2021 12:41:48 eating healthy foods: care instructions Not available 09/03/2021 12:41:49 exercise program : getting started Not available 09/03/2021 12:41:49 pelvic pain: car e instructions Not available 09/03/2021 12:43:49 12/27/2022 [id number] Patient Health Questionnaire-9* [email or web address] Not available 01/03/2023 10:54:53 09/25/2023 [id number] vaginal bleeding after sex: care instructions Not available 09/25/2023 12:14:28 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 spp neg negati ve Not Available [facility] [address] [place] [address], [address], 09/04/2021 15:32:48 09/04/19 22 09/04/2021 VAGIN ITIS PLUS STD PANEL raghu glabrata C. gla neg negati ve Not Available [facility] [address] [place] [address], [address], 09/04/2021 15:32:48 09/04/19 22 09/04/2021 VAGIN ITIS PLUS STD PANEL trichomonas vaginalis CV/TV TRICH neg negati ve Not Available [facility] [address] [place], [address], 09/04/2021 15:32:48 09/04/19 22 09/04/2021 VAGIN ITIS PLUS STD PANEL chlamydia trachomatis CT neg negati ve If both Pap and Endoc ervic al swabs are colle cted, the Prese rvCyt Solut ion liqui d Pap speci men must be colle cted befor e the endoc ervic al swab speci men. Not Available [facility] [address] [facility], [place], [address], 09/04/2021 15:32:48 09/04/1909/04/2021 VAGIN ITIS PLUS STD PANEL neisseria gonorrhoeae GC neg negati ve If both Pap and Endoc ervic al swabs are colle cted, the Prese rvCyt Solut ion liqui d Pap speci men must be colle cted befor e the endoc ervic al swab speci men. Not Available [place] [facility] [address] [facility], [place], [address], 09/04/2021 15:32:48 09/04/19 22 09/05/2021 HEPAT ITIS B SURFA CE ANTIG EN W/REF L CONFI RM hepatitis B surface antigen NON-RE ACTIVE non-re active normal Not Available [facility] [address] [address] [place], [address], 09/05/2021 13:14:18 09/04/19 22 09/05/2021 HEPAT ITIS C AB W/REF L TO HCV RNA, QN, PCR hepatitis C antibody NON-RE ACTIVE non-re active normal Not Available [address] [address] [place], [address], 09/05/2021 13:14:19 09/04/19 22 09/05/2021 HEPAT ITIS C AB W/REF L TO HCV RNA, QN, PCR index 0.02 <1.00 normal HCV antib juanpablo was non-r eacti ve. There is no labor atory evide nce of HCV infec tion. In most cases , no furth er actio n is requi red. Howev er, if recen t HCV expos ure is suspe cted, a test for HCV RNA (test code 42633 ) is sugge sted. For addit ional infor matio n pleas e refer to http: //[facility] catyane n.que stdia gnost ics.c om/fa q/FAQ 22v1 (This link is being provi ded for infor matio nal/ educa yimi l purpo ses only. ) Not Available [address] [address] [place], [address], 09/05/2021 13:14:19 09/04/19 22 09/05/2021 HSV 1/2 IGG,T YPE SPECI FIC AB hsv 1 IgG, type specific Ab 56.00 index high Not Available [facility] [employer] [facility] [address] [place], [address], 09/05/2021 13:14:19 09/04/19 22 09/05/2021 HSV 1/2 IGG,T YPE SPECI FIC AB hsv 2 IgG, type specific Ab 12.90 index high Index Inter preta tion ----- ----- ----- ---- <0.90 Negat theron 0.90- 1.09 Equiv ocal >1.09 Posit theron This assay utili zes recom binan t type- speci fic antig ens to diffe renti ate HSV-1 from HSV-2 infec tions . A posit theron resul t canno t disti nguis h betwe en recen t and past infec tion. If recen t HSV infec tion is suspe cted but the resul ts are negat theron or equiv ocal, the assay shoul d be repea jaziel in 4-6 weeks . The perfo rmanc e desi cteri stics of the assay have not been estab lishe d for pedia tric popul ation s, immun ocomp romis ed patie nts, or neona jose scree radha. Not Available [facility] [address] [address], [place], [address], 09/05/2021 13:14:19 09/04/1909/05/2021 HIV 1/2 ANTIG EN/AN TIBOD Y,FOU RTH GENER ATION W/RFL HIV Ag/Ab, 4TH gen NON-RE ACTIVE non-re active normal HIV-1 antig en and HIV-1 /HIV- 2 antib odies were not detec jaziel. There is no labor atory evide nce of HIV infec tion. PLEAS E NOTE: This infor matio n has been discl osed to you from recor ds whose confi denti ality may be prote cted by state law. If your state requi res such prote ction , then the state law prohi bits you from rupa thompson any furth er discl osure of the infor matio n witho ut the speci fic writt en conse nt of the perso n to whom it perta ins, or as other linton permi tted by law. A gener al autho rizat ion for the relea se of medic al or other infor matio n is NOT suffi cient for this purpo se. For addit ional infor matio n pleas e refer to http: //[facility] coire weber.traci stdia gnost ics.c om/fa q/FAQ 106 (This link is being provi ded for infor matio nal/ educa yimi l purpo ses only. ) The perfo rmanc e of this assay has not been clini kellen valid ated in patie nts less than 2 years old. Not Available [employer] [facility] [address] [place], [address], 09/05/2021 13:14:19 09/04/19 22 09/05/2021 RPR (DX) W/REF L TITER AND CONFI RMATO RY TESTI NG RPR (DX) w/refl titer and confirmatory testing NON-RE ACTIVE non-re active normal Not Available [employer] [facility] [address] [place], [address], 09/05/2021 13:14:20 09/04/19 22 09/05/2021 HPV HIGH RISK HPV high risk Negati ve negati ve The HPV High Risk assay is inten ded for use as co-te sting with cytol ogy and not as a subst itute for regul ar cervi lydia cytol ogy scree radha. This assay is not inten ded for use as a scree radha devic e for women under age 30 with freya l cervi lydia cytol ogy. Not Available [facility] [address] [place], [address], 09/05/2021 16:41:01 09/04/19 22 09/10/2021 THINP REP TIS PAP clinical information: normal Infor matio n not provi ded Not Available [address], [address], 09/10/2021 14:00:04 09/04/19 22 09/10/2021 THINP REP TIS PAP LMP: normal Infor matio n not provi ded Not Available [address], [address], 09/10/2021 14:00:04 09/04/1909/10/2021 THINP REP TIS PAP prev. Pap: normal Infor matio n not provi ded Not Available [address], [address], 09/10/2021 14:00:04 09/04/19 22 09/10/2021 THINP REP TIS PAP prev. BX: normal Infor matio n not provi ded Not Available [address], [address], 09/10/2021 14:00:04 09/04/19 22 09/10/2021 THINP REP TIS PAP source: normal Endoc ervix Not Available [address], [address], 09/10/2021 14:00:04 09/04/1909/10/2021 THINP REP TIS PAP statement of adequacy: normal SATIS FACTO RY FOR EVALU ATION Not Available [address], [address], 09/10/2021 14:00:04 09/04/19 22 09/10/2021 THINP REP TIS PAP interpretati on/result: Negat theron for intra epith elial blaine weber or victoria souza . Atrop irina miguel rn; predo minan tly parab migue cells Not Available [address] [address] [place], [address], 09/10/2021 14:00:04 09/04/19 22 09/10/2021 THINP REP TIS PAP comment: normal This Pap test has been evalu ated with compu cifuentes techn ology . Not Available [address] [address] [place], [address], 09/10/2021 14:00:04 09/04/19 22 09/10/2021 THINP REP TIS PAP cytotechnolo gist: normal ADRIEN, CT( CP) CT scree radha locat ion: [place] [address] [place] [address] Not Available [address] [address] [place], [address], 09/10/2021 14:00:04 09/04/19 22 09/10/2021 THINP REP TIS PAP comment EXPLA NATOR Y NOTE: The Pap is a scree radha test for cervi lydia cance r. It is not a diagn ostic test and is subje ct to false negat theron and false posit theron resul ts. It is most relia ble when a satis facto ry sampl e, regul anahi obtai jovanny, is submi tted with relev ant clini lydia findi ngs and histo ry, and when the Pap resul t is evalu ated along with histo carrol and curre nt clini lydia infor matio n. Not Available [address] [address] [address] , [place], [address], 09/10/2021 14:00:04 09/25/19 24 09/26/2023 HPV HIGH RISK HPV high risk Negati ve negati ve normal The HPV High Risk assay is inten ded for use as co-te sting with cytol ogy and not as a subst itute for regul ar cervi lydia cytol ogy scree radha. This assay is not inten ded for use as a scree radha devic e for women under age 30 with freya l cervi lydia cytol ogy. Not Available [address], [address], 09/27/2023 09:05:57 09/25/19 24 09/26/2023 VAGIN ITIS PLUS STD PANEL bacterial vaginosis BV neg negati ve normal Not Available [address], [address], 09/27/2023 09:05:58 09/25/19 24 09/26/2023 VAGIN ITIS PLUS STD PANEL raghu species C. spp neg negati ve normal Not Available [address], [address], 09/27/2023 09:05:58 09/25/19 24 09/26/2023 VAGIN ITIS PLUS STD PANEL raghu glabrata C. gla neg negati ve normal Not Available [address], [address], 09/27/2023 09:05:58 09/25/19 24 09/26/2023 VAGIN ITIS PLUS STD PANEL trichomonas vaginalis CV/TV TRICH neg negati ve normal Not Available [address], [address], 09/27/2023 09:05:58 09/25/19 24 09/26/2023 VAGIN ITIS PLUS STD PANEL chlamydia trachomatis CT neg negati ve normal This repor t is inten ded for us in clini lydia monit oring and manag ement of Intellikinee nts. It is not inten ded for use in medic al-le gal appli catio n. Not Available [facility] [address] [place] [address], [address], 09/27/2023 09:05:58 09/25/19 24 09/26/2023 VAGIN ITIS PLUS STD PANEL neisseria gonorrhoeae GC neg negati ve normal This repor t is inten ded for us in clini lydia monit oring and manag ement of patie nts. It is not inten ded for use in medic al-le gal appli catio n. Not Available [facility] [address] [place], [address], 09/27/2023 09:05:58 09/25/19 24 09/29/2023 THINP REP TIS PAP clinical information: normal None given Not Available [address], [address], 09/29/2023 12:22:24 09/25/19 24 09/29/2023 THINP REP TIS PAP LMP: normal NONE GIVEN Not Available [address] [place], [address], 09/29/2023 12:22:24 09/25/19 24 09/29/2023 THINP REP TIS PAP prev. Pap: normal NONE GIVEN Not Available [address], [address], 09/29/2023 12:22:24 09/25/19 24 09/29/2023 THINP REP TIS PAP prev. BX: normal NONE GIVEN Not Available [address], [address], 09/29/2023 12:22:24 09/25/19 24 09/29/2023 THINP REP TIS PAP source: normal Cervi x Not Available [address], [address], 09/29/2023 12:22:24 09/25/19 24 09/29/2023 THINP REP TIS PAP statement of adequacy: normal SATIS FACTO RY FOR EVALU ATION Not Available [address], [address], 09/29/2023 12:22:24 09/25/19 24 09/29/2023 THINP REP TIS PAP interpretati on/result: Cytol ogy Resul ts: Negat theron for intra epith elial lesio n or victoria souza . Atrop hic patte rn; predo wendie coon parab migue cells Not Available [facility] [address] [place], [address], 09/29/2023 12:22:24 09/25/19 24 09/29/2023 THINP REP TIS PAP comment: normal This Pap test has been evalu ated with compu ter jr sheriff techn ology . Not Available [facility] [address] [address], [place], [address], 09/29/2023 12:22:24 09/25/19 24 09/29/2023 THINP REP TIS PAP cytotechnolo gist: normal PELAEZ, CT( CP) CT Scree radha locat ion: [id number] [place] [address] Not Available [facility] [address] [place], [address], 09/29/2023 12:22:24 09/25/19 24 09/29/2023 THINP REP TIS PAP comment EXPLA NATOR Y NOTE: The Pap is a scree radha test for cervi lydia cance r. It is not a diagn ostic test and is subje ct to false negat theron and false posit theron resul ts. It is most relia ble when a satis facto ry sampl e, regul anahi obtai jovanny, is submi tted with relev ant clini lydia findi ngs and histo ry, and when the Pap resul t is evalu ated along with histo carrol and curre nt clini lydia infor matio n. Not Available [facility] [address] [place], [address], 09/29/2023 12:22:24 10/11/19 24 10/10/2023 US, trans vagin al No observ ation record ed. [email or web address] [address], [place], [address], 10/20/2023 10:30:46 Result Notes None recorded. Problems Name Problem SNOMED Code Status Onset Date Resolution Date Notes Provider Name and Address Organization Details Recorded Time Vaginola bial hernia Completed 201709/21/2017 Irritati on of skin lesion; Location : None Progress : Stable Added By: Sara Thakkar Add to Current Problems : YES ProblemS tatus: Resolve Other specifie d noninfla mmatory disorder s of vagina; Progress : Stable Added By: Sara Thakkar Add to Current Problems : NO ProblemS tatus: Resolve Vaginal irritati on; Location : None Progress : Stable Added By: Korina Soto Add to Current Problems : NO ProblemS tatus: Resolve Not Available [facility] 2 17:20:11 Breast neoplasm screenin g NOS Completed 201711/16/2017 Screenin g mammogra m - other; Location : None Severity : Moderate Progress : Stable Added By: Kathleen You Add to Current Problems : YES ProblemS tatus: Resolve Not Available [facility] 1 18:26:31 Low grade squamous intraepi thelial lesion on cervical Papanico laou smear [id number] Completed 201709/03/2021 Low grade squamous intraepi thelial lesion on cytologi c smear of cervix (LGSIL); Severity : Moderate Progress : Stable Added By: Kathleen You Add to Current Problems : YES ProblemS tatus: Current Papanico laou smear of cervix with low grade squamous intraepi thelial lesion (LGSIL); Location : None Severity : Moderate Progress : Stable Added By: Kathleen You Add to Current Problems : NO ProblemS tatus: Current Leeannridge Cantrell [facility], [facility] 2 11:54:09 Atrophic vaginiti s [id number] Completed 201709/03/2021 Atrophic vaginiti s, postmeno pausal; Location : None Severity : Moderate Progress : Stable Added By: Sara Thakkar Add to Current Problems : YES ProblemS tatus: Current Postmeno pausal atrophic vaginiti s; Severity : Moderate Progress : Stable Added By: Sara Thakkar Add to Current Problems : YES ProblemS tatus: Current AnJERALD Elena [address] [place] [address], [phone] , [facility] [employer] 4 10:37:23 Screenin g mammogra phy Completed 201711/16/2017 Encounte r for screenin g mammogra m for malignan t neoplasm of breast; Progress : Stable Added By: Kathleen You Add to Current Problems : NO ProblemS tatus: Resolve Not Available [facility] 2 17:20:11 Recurren t urinary tract infectio n [id number] Active 2022 JERALD Aguero [address] [place] [address], [phone] , [facility] [employer] 3 20:31:41 Pain in pelvis 76031091 Active 2023 JERALD Aguero [address] [place] [address], [phone] , [facility] [employer] 4 10:36:25 Atrophic vaginiti s 11148729 Active 2023 Atrophic vaginiti s, postmeno pausal; Location : None Severity : Moderate Progress : Stable Added By: Sara Thakkar Add to Current Problems : YES ProblemS tatus: Current Postmeno pausal atrophic vaginiti s; Severity : Moderate Progress : Stable Added By: Sara Thakkar Add to Current Problems : YES ProblemS tatus: Current JERALD Aguero [address] [place] [address], [phone] , [facility] [employer] 4 10:37:23 Notes:Screening mammogram - other (V76.12) ; OnsetDate: 09/17/2017; ResolvedDate: 11/16/2017; Progress: Stable Added By: Kathleen You Add to Current Problems: NO ProblemStatus: Resolve Problem Notes None recorded. Procedures Surgical History Date Name Laterality Status Provider Name and Address Organization Details Recorded Time 09/25/19 24 Date of Last Pap Smear completed JERALD Aguero [address] [place] [address], [phone], [employer] [facility] 10/03/2023 11:28:00 06/01/20 22 Most Recent Mammogram completed [facility] [employer] [facility] 12/27/2022 10:10:34 repair of stress incontinence by suprapubic sling completed Darlin Khan [facility] [employer] [facility] 08/29/2021 09:09:52 LEEP completed [facility] [employer] [facility] 09/03/2021 12:05:17 [facility] 09/03/2021 12:05:17 Imaging Results None recorded. Procedure Notes None recorded. Medical Equipment None Reported. Allergies No known drug allergies Medications Name Sig Start Date Stop Date Status Note LastModified by Organization Details LastModified Time vitamin d3 5000 iu softgels 50 TAKE 1 CAPSULE BY MOUTH EVERY DAY 06/07 completed Not Available Not Available Not Available losartan 50 mg tablet TAKE 1 TABLET BY MOUTH EVERY DAY 09/24 completed Not Available Not Available Not Available cyclobenz aprine 10 mg tablet TAKE 1 TABLET BY MOUTH EVERY 8 HOURS 12/27 completed Not Available Not Available Not Available atorvasta tin 40 mg tablet Take 1 tablet(s ) by mouth daily 09/03 completed Atorvast atin Calcium 80mg Tablet Allow Substitu tion: True Refill Denied: No Refill DateOccu rred: 07/23/19 18 Not Available Not Available Not Available atorvasta tin 80 mg tablet TAKE 1 TABLET BY MOUTH EVERY DAY active Not Available Not Available No t Available doxycycli ne hyclate 100 mg capsule TAKE 1 CAPSULE BY MOUTH TWICE A DAY FOR 7 DAYS 09/24 completed Not Available Not Available Not Available atorvasta tin 10 mg tablet Take 1 tablet(s ) by mouth daily 06/07 completed Atorvast atin Calcium 80mg Tablet Allow Substitu tion: True Refill Denied: No Refill DateOccu rred: 07/23/19 18 Not Available Not Available Not Available azithromy priyanka 250 mg tablet TAKE 2 TABLETS BY MOUTH TODAY, THEN TAKE 1 TABLET DAILY FOR 4 DAYS 12/27 completed Not Available Not Available Not Available aspirin 325 mg tablet Take 1 tablet(s ) by mouth daily 09/03 completed Aspirin (ASA) 81mg Tablets, Enteric Coated Allow Substitu tion: True Refill Denied: No Refill DateOccu rred: 07/23/19 18 Not Available Not Available Not Available nystatin 100,000 unit/gram topical ointment APPLY TO AFFECTED AREA TWICE A DAY 09/24 completed Not Available Not Available Not Available fluconazo le 150 mg tablet TAKE 1 TABLET BY MOUTH DAILY X2 DAYS 12/26 completed Not Available Not Available Not Available benzonata te 200 mg capsule TAKE 1 CAPSULE BY MOUTH THREE TIMES A DAY 09/24 completed Not Available Not Available Not Available ondansetr on HCl 8 mg tablet TAKE 1 TABLET BY MOUTH EVERY DAY NEEDED FOR NAUSEA/V OMITING X5 DAYS 12/27 completed Not Available Not Available Not Available naltrexon e 50 mg tablet TAKE 1/2 TABLET BY MOUTH DAILY, MAY INCREASE TO 1/2 TABLET TWICE A DAY IF NEEDED AFTER 1 WEEK 06/07 completed Not Available Not Available Not Available sertralin e 100 mg tablet TAKE 1 TABLET BY MOUTH EVERY DAY active Not Available Not Available No t Available phentermi ne 37.5 mg tablet Take 1 tablet(s ) by mouth daily 09/03 completed Phenterm ine HCl 37.5mg Tablets Allow Substitu tion: True Refill Denied: No Refill DateOccu rred: 07/23/19 18 Not Available Not Available Not Available prochlorp erazine maleate 10 mg tablet TAKE 1 TABLET BY MOUTH EVERY 8 HOURS NEEDED 12/27 completed Not Available Not Available Not Available sulfameth oxazole 800 mg-trimet hoprim 160 mg tablet TAKE 1 TABLET BY MOUTH TWICE A DAY FOR 7 DAYS 12/27 completed Not Available Not Available Not Available omeprazol e 40 mg capsule,d elayed release TAKE 1 CAPSULE BY MOUTH EVERY DAY active Not Available Not Available No t Available aspirin 81 mg tablet,de layed release TAKE 1 TABLET BY MOUTH EVERY DAY active Not Available Not Available No t Available phentermi ne 30 mg capsule Take 1 tablet(s ) by mouth daily 09/03 completed Phenterm ine HCl 37.5mg Tablets Allow Substitu tion: True Refill Denied: No Refill DateOccu rred: 07/23/19 18 Not Available Not Available Not Available ondansetr on 8 mg disintegr ating tablet LET 1 TABLET DISSOLVE BY MOUTH EVERY 8 HOURS NEEDED FOR NAUSEA/V OMITING active Not Available Not Available No t Available levothyro xine 25 mcg tablet TAKE 1 TABLET BY MOUTH EVERY DAY active Not Available Not Available No t Available nystatin- triamcino lone 100,000 unit/gram -0.1 % topical ointment Apply thin film to affected area bid 12/27 completed Not Available Not Available Not Available nortripty line 25 mg capsule TAKE 1 CAPSULE BY MOUTH EVERY DAY NIGHTLY 12/27 completed Not Available Not Available Not Available meloxicam 7.5 mg tablet TAKE 1 TABLET BY MOUTH TWICE A DAY NEEDED FOR PAIN active Not Available Not Available No t Available famotidin e 20 mg tablet TAKE 1 TABLET BY MOUTH EVERY 12 HOURS FOR 10 DAYS 12/27 completed Not Available Not Available Not Available methocarb didi 750 mg tablet TAKE 1 TABLET BY MOUTH FOUR TIMES A DAY 12/27 completed Not Available Not Available Not Available doxycycli ne monohydra te 100 mg capsule TAKE 1 CAPSULE BY MOUTH TWICE A DAY FOR 7 DAYS 09/24 completed Not Available Not Available Not Available cephalexi n 500 mg capsule TAKE 1 CAPSULE BY MOUTH THREE TIMES A DAY FOR 7 DAYS 06/07 completed Not Available Not Available Not Available ferrous sulfate 325 mg (65 mg iron) tablet TAKE 1 TABLET BY MOUTH EVERY DAY active Not Available Not Available No t Available triamcino lone acetonide 0.1 % topical ointment APPLY THIN COAT TO AFFECTED AREA TWICE A DAY 09/24 completed Not Available Not Available Not Available prednison e 50 mg tablet TAKE 1 TABLET BY MOUTH EVERY DAY 09/03 completed Not Available Not Available Not Available gabapenti n 300 mg capsule TAKE 1 CAPSULE BY MOUTH EVERYDAY AT BEDTIME 12/27 completed Not Available Not Available Not Available sertralin e 25 mg tablet Take 1 tablet(s ) by mouth daily 06/07 completed Sertrali ne HCl 100mg Tablet Allow Substitu tion: True Refill Denied: No Refill DateOccu rred: 07/23/19 18 Not Available Not Available Not Available aspirin 81 mg chewable tablet Take 1 tablet(s ) by mouth daily 09/03 completed Aspirin (ASA) 81mg Tablets, Enteric Coated Allow Substitu tion: True Refill Denied: No Refill DateOccu rred: 07/23/19 18 Not Available Not Available Not Available mupirocin 2 % topical ointment APPLY TOPICALL Y 1 APPLICAT ION 3 TIMES A DAY FOR 10 DAYS 10/09 completed Not Available Not Available Not Available azelastin e 137 mcg (0.1 %) nasal spray USE 2 SPRAYS IN EACH NOSTRIL TWICE A DAY 12/27 completed Not Available Not Available Not Available methylpre dnisolone 4 mg tablets in a dose pack 12/27 completed Not Available Not Available Not Available albuterol sulfate HFA 90 mcg/actua tion aerosol inhaler INHALE 2 PUFFS INTO THE LUNGS 4 TIMES A DAY 09/24 completed Not Available Not Available Not Available sumatript an 20 mg/actuat ion nasal spray USE DIRECTED NEEDED FOR MIGRAINE . LIMIT TO TWICE DAILY active Not Available Not Available No t Available ondansetr on 4 mg disintegr ating tablet DISSOLVE 1 TABLET ON THE TONGUE ONCE EVERY 4 HOURS NEEDED FOR NAUSEA/V OMITING 06/07 completed Not Available Not Available Not Available topiramat e 100 mg tablet TAKE 1 TABLET BY MOUTH EVERY DAY active Not Available Not Available No t Available losartan 100 mg tablet TAKE 1 TABLET BY MOUTH EVERY DAY active Not Available Not Available No t Available cholecalc iferol (vitamin D3) 125 mcg (5,000 unit) capsule TAKE 1 CAPSULE BY MOUTH EVERY DAY active Not Available Not Available No t Available dicyclomi ne 10 mg capsule TAKE 1 CAPSULE BY MOUTH THREE TIMES A DAY NEEDED FOR ABDOMINA L PAIN 09/24 completed Not Available Not Available Not Available phentermi ne 37.5 mg capsule TAKE 1 CAPSULE BY MOUTH EVERY DAY TO LOSE WEIGHT active Not Available Not Available No t Available naproxen 500 mg tablet TAKE 1 TABLET BY MOUTH TWICE A DAY WITH FOOD 12/27 completed Not Available Not Available Not Available amoxicill in 875 mg-potass ium clavulana te 125 mg tablet TAKE 1 TABLET BY MOUTH EVERY 12 HOURS 12/26 completed Not Available Not Available Not Available rizatript an 5 mg tablet TAKE 1 TAB BY MOUTH ONCE AT FIRST SIGN OF MIGRAINE . MAY REPEAT ONE TIME AFTER 2 HOURS IF NEEDED. active Not Available Not Available No t Available ezetimibe 10 mg tablet TAKE 1 TABLET BY MOUTH EVERY DAY WITH ATORVAST ATIN active Not Available Not Available No t Available cyclobenz aprine 5 mg tablet TAKE 1 TABLET BY MOUTH THREE TIMES A DAY NEEDED FOR MUSCLE SPASMS 12/27 completed Not Available Not Available Not Available nitrofura ntoin monohydra te/macroc rystals 100 mg capsule TAKE 1 CAPSULE BY MOUTH NEEDED AFTER INTERCOU RSE 2023 active Not Available Not Available Not Avai lable iron 12/27 completed Not Available Not Available Not Available Imitrex Inject 0.5 ml subcutan eously prn for migraine 2017 active Imitrex 6mg Injectio n RxNorm: [id number] Allow Substitu tion: True Refill Denied: No Refill DateOccu rred: 07/23/19 18 Not Available Not Available Not Available nitrofura ntoin 09/03 completed Nitrofur antoin 50mg Capsules Allow Substitu tion: True Refill Denied: No Refill DateOccu rred: 07/23/19 18 Not Available Not Available Not Available topiramat e take one tablet by mouth daily 06/07 completed Topirama te 100mg Tablet Allow Substitu tion: True Refill Denied: No Refill DateOccu rred: 07/23/19 18 Not Available Not Available Not Available Doxycycli ne Take 1 tablet(s ) by mouth daily 09/03 completed Doxycycl ine 100mg Tablet Allow Substitu tion: True Refill Denied: No Refill DateOccu rred: 07/23/19 18 Not Available Not Available Not Available cephalexi n 750 mg capsule TAKE 1 CAPSULE BY MOUTH EVERY 8 HOURS FOR 10 DAYS. 06/07 completed Not Available Not Available Not Available estradiol 10 mcg vaginal tablet Insert 1 tablet twice a week by vaginal route for 30 days. 2023 active Not Available Not Available Not Avai lable B12 active Not Available Not Availa ble Not Available Probiotic 12/27 completed Not Available Not Available Not Available Ozempic 0.25 mg or 0.5 mg (2 mg/1.5 mL) subcutane ous pen injector INJECT 0.25 MG SUBQ ONCE WEEKLY FOR 4 WEEKS. THEN INCREASE TO 0.5 MG SUBQ WEEKS TO REDUCE CV EVENTS. 12/27 completed Not Available Not Available Not Available ID NOW COVID-19 Test Kit TEST DIRECTED TODAY active Not Available Not Available No t Available Vitals Date Recorded Body temperature Body weight Body mass index (BMI) Body height Systolic blood pressure Diastolic blood pressure Provider Name and Address Organization Details Last Updated DateTime 2 97.6 [degF] 48498.8 5 g 29.5 kg/m2 165.1 cm 120 mm[Hg] 68 mm[Hg] [employer] IV 2 12:04:13 Date Recorded Body height Body mass index (BMI) Body weight Body temperature Systolic blood pressure Diastolic blood pressure Provider Name and Address Organization Details Last Updated DateTime 4 165.1 cm 31.3 kg/m2 25788.3 7 g 96.8 [degF] 120 mm[Hg] 76 mm[Hg] Jimena Kline [facility] 4 09:57:55 Date Recorded Body height Body mass index (BMI) Body weight Body temperature Systolic blood pressure Diastolic blood pressure Provider Name and Address Organization Details Last Updated DateTime 4 165.1 cm 30.3 kg/m2 62328.8 1 g 96.8 [degF] 112 mm[Hg] 72 mm[Hg] Mary Sanchez [facility] 4 10:34:09 Date Recorded Body height Body mass index (BMI) Body weight Body temperature Systolic blood pressure Diastolic blood pressure Provider Name and Address Organization Details Last Updated DateTime 3 165.1 cm 29.7 kg/m2 97154.1 6 g 97.1 [degF] 104 mm[Hg] 64 mm[Hg] [employer] IV 3 10:11:38 Date Recorded Body height Body mass index (BMI) Body weight Body temperature Systolic blood pressure Diastolic blood pressure Provider Name and Address Organization Details Last Updated DateTime 2 165.1 cm 28.8 kg/m2 58120.7 6 g 97.2 [degF] 122 mm[Hg] 84 mm[Hg] Erlinda Jackson [facility] IV 09:37:12 Social History Question Answer Notes LastModified by Organizat [email or web address] Details LastModified Time Tobacco Smoking Status Never Smoker Leeann Cantrell null, [facility] 09/03/2021 12:05:09 Are You Blind Or Do You Have Difficulty Seeing? No Information not available 09/03/2021 Are You Deaf Or Do You Have Serious Difficulty Hearing? No Information not available 09/03/2021 What Type Of Diet Are You Following? REGULAR Information not available 12/27/2022 What Is The Highest Grade Or Level Of School You Have Completed Or The Highest Degree You Have Received? [id number] [email or web address] Information not available 10/10/2023 How Many Children Do You Have? 0 Information not available 12/27/2022 What Is Your Relationship Status? Information not available 09/03/2021 Are You Sexually Active? Yes [email or web address] Information not available 08/29/2021 Sex: Unknown Functional Status Question Answer Note LastModified by Organizat ion Details LastModified Time Do you use any illicit or recreational drugs? No Information not available 09/03/2021 Do you or have you ever used any other forms of tobacco or nicotine? No Information not available 09/03/2021 What is your level of alcohol consumption? None Information not available 12/27/2022 Are you currently employed? No [email or web address] Information not available 10/10/2023 Do you or have you ever used e-cigarettes or vape? Never used electronic cigarettes Information not available 09/03/2021 What is your exercise level? Occasional Information not available 09/03/2021 Mental Status None recorded. Family History Relationship Description Onset Age of this Age Resolved Age Notes LastModified by Organization Details LastModified Time Father Hypertensive disorder [email or web address] Not available 02/2022 09:09:04 Mother Hypertensive disorder [email or web address] Not available 02/2022 09:09:04 Medical History Condition Response Heart Disease Y High Cholesterol Y Gynecological History Statement/Question Response If Post Menopausal, Age at Menopause 44 Date of Last Colonoscopy Date of last HPV 09/25/2023 Date of LMP 06/23/2006 Most Recent Bone Density HPV Vaccine N Date of Last Pap Smear 09/25/2023 Most Recent Mammogram 06/01/2022 Current Control Method Menopause Age at Menarche 15 Obstetrics History GPAL:G 0 P 0 0 0 0 Past Encounters Encounter ID Performer Location Encounter Start Date Encounter Closed Date Diagnosis/Indication Diagnosis SNOMED-CT Code Diagnosis ICD10 Code Diagnosis Note [id number] JERALD Aguero [facility] [address] [place] [address] 09/03/2021 11:57:36 09/03/2021 13:10:23 Depression screening 872750568 Z13.31 negative Gynecologi c examination 18374595 Z01.419 WWE completed- yearly exams recommende dPap with HPV obtained.E ncouraged monthly SBEs, healthy diet, regular exercise, probiotics Mammogram- due in March; yearly screeningL ipid screening- by PCP; q 5 years recommende dColon cancer screening - up-to-date Diabetes screening- by PCP; q 3 year screening recommende dDepressio n screening- negativeVa ccines- up-to-date Screening for malignant neoplasm of cervix 119058015 Z12.4 Screening for malignant neoplasm of breast 230554671 Z12.39 Venereal d isease screening 369290714 Z11.3 Atrophic vaginitis 74745 000 N95.2 Acute pelvic pain 104726 005 R10.2 Patient case to submit [place] for [place] [id number] AMANDA GONCALVES DO [facility] [address] [place] [address] 06/07/2022 09:17:04 06/07/2022 10:13:19 Pruritus of vulva 64393024 L29.2 vulvar irritation following extended antibiotic use. Likely yeast infection of vulva. If it does clear by friday to call and will prescribe triamcinol one ointment [id number] JERALD Aguero [facility] [address] [place] [address] 12/27/2022 10:02:48 12/27/2022 15:47:06 Gynecologic examination 61791461 Z01.419 WWE completed- yearly exams recommende dPap not obtained; - up-to-date Discussed breast self-aware ness, healthy diet, regular exercise, probiotics Mammogram- dueLipid screening- by PCPColon cancer screening - up-to-date Diabetes screening- by PCPVaccine s- up-to-date Screening for malignant neoplasm of breast 215010235 Z12.31 Depression screening 171 501723 Z13.31 screen negative Recurrent urinary tract infection 135803184 N39.0 Void before and after intercours erx for macrobid - take prn after intercours e Screening for cardiovascular system disease 570352915 Z13.6 [facility] [id number] JERALD Aguero [facility] [address] [place] [address] 09/25/2023 09:48:40 09/25/2023 17:41:24 Dyspareunia 63553842 N94.10 Postcoital bleeding 4888 0000 N93.0 Screening for malignant neoplasm of cervix 320816707 Z12.4 Cervical cancer screening is used to find abnormal changes in the cells of the cervix that could lead to cancer. Screening includes the Pap test and, for some women, testing for a virus called human papillomav irus (HPV). The main cause of cervical cancer is infection with HPV. Atrophic vaginitis 50986 000 N95.2 Rx for vaginal estrogen Pain in pelvis 02337916 R10.2 Schedule USPatient case to submit [place] for [place] [id number] JERALD Aguero [facility] [address] [place] [address] 10/10/2023 09:47:10 10/10/2023 11:58:00 Pain in pelvis 36861340 R10.2 Discussed normal US findings.A jose will follow up as needed. Health Concerns Section Related Observation LastModified by Organization Detai ls LastModified Time None Recorded Concern Status LastModified by Organization Details LastModified Time None Recorded Advance Directives Directive None Recorded Payers Insurance Date Sequence Insurance Name Policy Number Policy Orellana Covered Member ID Orellana Member ID Guarantor Name 10/13/2023 1 [employer] (MEDICARE REPLACEMENT/ ADVANTAGE - PPO) [id number] Maryjo Virk [id number] Maryjo Virk Notes Date Note Type Note Provider Name and Address Organization Details Recorded Time 09/03/2021 text/html Annual GYNReport ed bypatient.Menstrual cycle:Post menopause Urinary symptoms:No hematuria;Stress incontinence;Urge incontinence Vulva:No genital lesion Vagina:Normal vaginal discharge Breast:No breast pain; No breast lump; No nipple discharge Sexual complaints:No sexual complaints; No pain during intercourse; Normal libido Menopausal Symptoms:No menopausal symptoms;Inadequacy of lubrication of vaginal mucosa Psychological symptoms:No depression; No anxiety Preventive measures:Encourage self breast examination; Encourage regular exercise; Mammogram performed within the past year; Up to date on colonoscopy screening Maryjo is here for her annual exam with pap.She c/o right pelvic pain(+) atrophic vaginitis and uses vaginal estrogenc/o urinary incontinence- urge and stressdesires STI screening JERALD Aguero [address] [facility], [place], [address], [facility] 09/04/2021 18:56:04 06/07/2022 text/html Pt is here for irritation and itching in the vaginal area. Pt states this has been going on for 3 weeks, it has been red, raw, and irritated. She stated she thinks it from the antibiotic she's been taking for an abscess on her chin. She also stated she's been breaking out in sweat and feeling dizzy and just doesn't feel good. 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 States she had a recent scare- my legs gave out and she fell down the stairs. She was cleared by the ER and neuro. She has not seen her stamper blocker yet. States right side still feels numb at times. She denies headaches and dizziness. She denies palpitations and chest pain. Denies shortness of breath. Maryjo denies leg pain/cramps.Last pap 08/2021 and normal.She denies postmenopausal bleeding. Denies urinary incontinence. Reports frequent urinary tract infections, caused by intercourse. JERALD Aguero [address] [place], [address], [facility] [employer] 01/04/2023 12:13:48 09/25/2023 text/html MenopauseReporte d bypatient.Quality:nigh t sweats; sleep issues; mood changes; hot flashes >8 times/day Associated Symptoms:no abdominal pain; no vaginal discharge; no dysuria; no dispareunia; no changes in bowel function; no fever; no irritability; no depression; no anxiety; no skin changes; no loss of libido; no changes in urination;pelvic pain;abnormal bleeding(postcoital);v aginal dryness Maryjo presents c/o bleeding after intercourse. Reports the bleeding is light, spotting. Notices when wiping and spotting continues into next day. It started 1 month ago.She has also has sharp pain to right lower abdomen. This also started about 1 month ago; intermittent pain. Once per week and lasts a few seconds.She denies vaginal discharge, irritation, and odor. Denies dryness. She denies urinary frequency, urgency, and incontinence.Reports bloating; gained about 5 pounds per week since May. Reports nausea and vomiting. Takes Zofran which helps - every other day. 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 States her PCP repeated the labs and was told everything was fine. Due to her symptoms, her stamper blocker wants her to have a lumbar puncture, which is scheduled for November.Takes macrobid after intercourse and states it is helping in preventing UTIs. JERALD Aguero [address] [facility], [place], [address], [facility] [employer] IV 09/29/2023 10:40:20 10/10/2023 text/html Maryjo presents for a follow-up visit for c/o pelvic pain.US today. Maryjo was c/o bleeding after intercourse. Reports the bleeding is light, spotting. Notices when wiping and spotting continues into next day. It started 1 month ago.---Started vaginal estrogen last visit. Denies further bleedingShe has also has sharp pain to right lower abdomen. This also started about 1 month ago; intermittent pain. Once per week and lasts a few seconds-states the pain is better JERALD Aguero [address] [facility], [place], [address], [facility] [employer] IV 10/14/2023 21:21:55 OBGyn Episode No OBEpisode recorded.
[2024-11-26 10:26] LABS: Estimated Glomerular Filt Rate > 60
== END 2024-11-26 09:52 | disposition home or self-care (01) ==
PROVIDERS: PCP Family Medicine; Visit Provider Physician Assistant Medical
DX: R10.2 Pelvic and perineal pain (principal)
CPT/HCPCS: 74177; Q9967

== ENCOUNTER 2024-12-20 10:57 | Outpatient (CLI) | payer MEDICARE, SELFPAY ==
--- OUTSIDE RECORDS SUMMARY | 2024-12-20 11:36 | XMS_ITS | Clinical Summary ---
Author Organization [facility] Address [address] [place] [address] Care Team Providers Care Full Stack Python Developer Name Role Phone Robbin Hall MD Primary [...] 3 3 Active SUMAtriptan (IMITREX) 20 mg/actuation [place], Non-AerosolIndi cations:Chronic migraine without aura, not intractable, without status migrainosus USE DIRECTED NEEDED FOR MIGRAINE. 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
--- OUTSIDE RECORDS SUMMARY | 2024-12-20 11:36 | XMS_ITS | Clinical Summary ---
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,non-owned Affiliates and Associated Physician Practices is amultiple site organization consisting of ambulatory clinics and hospital sitesin [place], [place], [place] and [place]. This disclosure is being madepursuant to the Care Everywhere program and may not contain all information available regarding this patient. Last updated 18.[facility] Allergies Active Allergy Reactions Criticality Noted Date [...] Description 09/27/2024 10:20 AM CDT Office Visit [facility] - Rheumatology [address] [place] [address] Zayra Agosto MD Primary osteoarthritis [...] CDT Respiratory Rate 16 06/21/2017 11:19 AM [employer] Oxygen Saturation 95% 09/27/2024 10:16 AM CDT Inhaled Oxygen Concentration - - Weight 83.6 kg (184 lb 3.2 oz) 09/27/2024 10:16 AM CDT Height 165.1 cm (5' 5) 07/06/2024 9:55 AM [employer] Body Mass Index 30.65 07/06/2024 9:55 AM [employer] Plan of Treatment Health Maintenance Due Date [...] 2007 ZOSTER VACCINE (1 of 2) 2007 MAMMOGRAM 01/12/2023 01/12/2021, 07/2 08/2020, 01/12/2021, Additional history exists COVID-19 VACCINE ( season) 2024 DEPRESSION SCREENING 06/23/2024 02/26/2023 MEDICARE AWV CALENDAR YEAR 2024 INFLUENZA VACCINE (Season Ended) 2025 SCREENING FOR DIABETES 09/28/2027 , 11/10/2023, 11/01/2022, Additional history exists Respiratory Syncytial Virus (RSV) Vaccine Pt: or over 60 yrs (1 - 1-dose 75+ series) 2032 BONE DENSITY TESTING Completed 08/18/2013 HEPATITIS C [...] - RESULTS TO FOLLOW Test Performed at: [address] [address] GABRIELLA PORTILLO MD 09/27/2024 11:1 9 AM CDT 09/27/2024 11:19 AM CDT Zayra Agosto MD LAB - MICROBIOLOGY ORD ERABLES Final Result Performing Organization Address [facility] Co de Phone Number [address] [address] * (ABNORMAL) URINALYSIS W/MICROSCOPIC REFLEX TO CULTURE (09/27/2024 11:19 AM CDT) Color UA YELLOW YELLOW [facility] Appearance CLEAR CLEAR [facility] Specific [place] UA 1.009 1.001 - 1.035 [facility] pH [...] elements seen were reported. Test Performed at: [address] [address] GABRIELLA PORTILLO MD Urine MID-STREAM URINE SPECIMEN / Unknown 09/27/2024 11:19 AM CDT 09/27/2024 11:19 AM CDT Zayra Agosto MD LAB - URINALYSIS ORDER DOMINIQUE Final Result Performing Organization Address [facility] Co de Phone Number [address] [address] * C-REACTIVE PROTEIN (09/27/2024 11:19 AM CDT) C-Reactive Protein <5.0 <8.0 mg/L [facility] Comment: Test Performed at: [address] [address] GABRIELLA PORTILLO MD Blood BLOOD SPECIMEN / Unknown 09/27/2024 11:19 AM CDT 09/27/2024 11:19 AM CDT Zayra Agosto MD LAB - CHEMISTRY ORDERA BLES Final Result Performing Organization Address [facility] Co de Phone Number [address] [address] * CULTURE URINE (09/27/2024 11:19 AM CDT) Pathologist [facility] Culture [facility] Comment: CULTURE, URINE, ROUTINE Micro Number: [id number] Test Status: Final Specimen Source: Urine Specimen Quality: Adequate Result: No Growth Test Performed at: [address] [address] GABRIELLA PORTILLO MD 09/27/2024 11:1 9 AM CDT 09/27/2024 11:19 AM CDT Zayra Agosto MD LAB - MICROBIOLOGY ORD ERABLES Final Result Performing Organization Address [facility] Co de Phone Number [place] [phone] * ERYTHROCYTE SEDIMENTATION RATE (09/27/2024 11:19 AM CDT) [facility] Erythrocyte Sedimentation Rate Westergren 8 < OR = 30 mm/h [facility] Comment: Test Performed at: [address] [address] GABRIELLA PORTILLO MD Blood BLOOD SPECIMEN / Unknown 09/27/2024 11:19 AM CDT 09/27/2024 11:19 AM CDT Zayra Agosto MD LAB - HEMATOLOGY ORDER DOMINIQUE Final Result Performing Organization Address City/[facility]/[place] [address] * (ABNORMAL) CBC WITH DIFFERENTIAL (09/27/2024 11:19 AM CDT) [facility] White Blood Cell Count 8.3 3.8 - [...] 0.7 % [facility] Comment: Test Performed at: [address] [address] GABRIELLA PORTILLO MD Blood BLOOD SPECIMEN / Unknown 09/27/2024 11:19 AM CDT 09/27/2024 11:19 AM CDT Zayra Agosto MD LAB - HEMATOLOGY ORDER DOMINIQUE Final Result [address] [address] * COMPREHENSIVE METABOLIC PANEL (09/27/2024 11:19 AM CDT) Pathologist [facility] Glucose 91 65 - 99 mg/dL [facility] [...] 29 U/L [facility] Comment: Test Performed at: [address] [address] GABRIELLA PORTILLO MD Blood BLOOD SPECIMEN / Unknown 09/27/2024 11:19 AM CDT 09/27/2024 11:19 AM CDT Zayra Agosto MD LAB - CHEMISTRY ORDERA BLES Final Result Performing Organization Address City/[facility]/ZIP Co de Phone Number [address] [address] * HEPATITIS C ANTIBODY W RFLX PCR (11/10/2023 11:56 AM CDT) Pathologist [facility] Hepatitis C Antibody Non Reactive Non Reactive 11/13/2023 10:07 PM CDT [facility] Blood BLOOD SPECIMEN / Unknown Lab Venipuncture / Unknown 11/10/2023 11:56 AM CDT 11/10/2023 2:58 PM CDT Narrative [facility] - 11/13/2023 10:07 PM CDT Performed at: [address] [place] [id number] Manager Business Banking: Ricardo Valverde PhD, Phone: [phone] Zayra Agosto MD LAB - CHEMISTRY ORDERA BLES Final Result [facility] [address] [place] [address], [facility] from Last 3 Months or Most Recently Relevant to Health Maintenance Insurance AET AETNA MEDICARE ADV AETNA MEDICARE ADV 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
--- OUTSIDE RECORDS SUMMARY | 2024-12-20 11:36 | XMS_ITS | Data Portability ---
Author Organization [employer] , [facility] Address [address] [place] [address] Care Team Providers Care Manager Business Operations Name Role Phone [facility] Arabic Linguist Assessment No assessment recorded. Plan of Treatment Reminders Order Date Submit Date Provider Last Modified By Organization Details Last Modified Time Details Appointments None recorded. Lab bacterial vaginosis + vaginitis panel, vaginal 2023 024 [facility], [address] [place], [address], 4 09:05:58 pap, LB 2023 024 [facility], [address] [place], [address], 4 12:22:24 HPV E6+E7 mRNA, qualitative PCR, cervix 2023 024 [employer] [facility], [address] [place], [address], 4 09:05:57 HIV 1+2 Ab + HIV1 p24 Ag, quantitativ e immunoassay , serum 2021 022 [facility], [address] [place], [address], 2 13:14:19 HBsAg (hepatitis B surface Ag), serum 2021 022 [facility], [address] [place], [address], 2 13:14:18 hsv (1+2) igg, serum 2021 [facility], [address] [place], [address], 13:14:19 hepatitis C virus Ab, serum 2021 [facility], [address] [place], [address], 13:14:19 RPR (rapid plasma reagin), serum 2021 [facility], [address] [place], [address], 13:14:20 bacterial vaginosis + vaginitis panel, vaginal 2021 [facility], [address] [place], [address], 2 15:32:48 HPV E6+E7 mRNA, qualitative PCR, cervix 2021 [facility], [address] [place], [address], 16:41:01 pap, LB 2021 022 [facility], [address] [place], [address], 2 14:00:04 Referral cardiologis t referral [address] Cardiology Department, [address] [place] [address], [address], 3 12:59:23 Procedures None recorded. Surgeries None recorded. Imaging US, transvagina l 2023 024 SOURAV Not available 4 23:01:58 MAMMO, screening, digital, bilateral 2022 023 kbritsch Not available 3 10:54:39 Medication Orders estradiol 10 mcg vaginal tablet 2023 024 [email or web address] 1 [facility] #[id number], [address], [place], [address], 4 10:28:20 Macrobid 100 mg capsule 2022 023 [facility] #[id number], [address], [place], [address], 4 10:31:15 nystatin-tr iamcinolone 100,000 unit/gram-0 .1 % topical ointment 2021 023 [facility] #[id number], [address], [place], [address], 3 10:14:49 Yuvafem 10 mcg vaginal tablet 2021 022 [email or web address] 1 [facility] [address] In [facility], [facility] [place], [address], 2 10:05:16 Patient TargetsNo targets recorded. Patient Instructions Encounter Date Encounter Id Patient Instructions Last Modified By Organization Details Last Modified Time 09/03/2021 [id number] atrophic vaginitis: care instructions Not available 09/03/2021 12:41:48 Patient Health Questionnaire-9* [email or web address] Not available 12/04/2021 12:08:58 A healthy lifestyle: care instructions Not available 09/03/2021 12:41:48 depression (wome n only) Not available 09/03/2021 12:41:48 eating healthy foods: care instructions Not available 09/03/2021 12:41:49 exercise program : getting started Not available 09/03/2021 12:41:49 pelvic pain: car e instructions Not available 09/03/2021 12:43:49 12/27/2022 [id number] Patient Health Questionnaire-9* [email or web address] Not available 01/03/2023 10:54:53 09/25/2023 [id number] vaginal bleeding after sex: care instructions Not available 09/25/2023 12:14:28 Reason for Referral User Support Analyst Referral for Sc reening for cardiovascular system disease Referring Physician: Sara Thakkar, [employer] ACTIV[employer] COORDINATOR, Encounter Date: 12/27/2022 Results Created Date Observation Date Name Description Value Unit Range Abnormal Flag Note LastModifiedBy Organization Detail LastModifiedTime 09/04/19 22 09/04/2021 VAGIN ITIS PLUS STD PANEL bacterial vaginosis BV neg negati ve Not Available [facility] [address] [place] [address], [address], 09/04/2021 15:32:48 09/04/19 22 09/04/2021 VAGIN ITIS PLUS STD PANEL raghu species C. spp neg negati ve Not Available [facility] [address] [place], [address], 09/04/2021 15:32:48 09/04/19 22 09/04/2021 VAGIN ITIS PLUS STD PANEL raghu glabrata C. gla neg negati ve Not Available [facility] [address] [place] [address], [address], 09/04/2021 15:32:48 09/04/19 22 09/04/2021 VAGIN ITIS PLUS STD PANEL trichomonas vaginalis CV/TV TRICH neg negati ve Not Available [facility] [address] [place], [address], 09/04/2021 15:32:48 09/04/19 22 09/04/2021 VAGIN ITIS PLUS STD PANEL chlamydia trachomatis CT neg negati ve If both Pap and Endoc ervic al swabs are colle cted, the Prese rvCyt Solut ion liqui d Pap speci men must be colle cted befor e the endoc ervic al swab speci men. Not Available [facility] [address] [place], [address], 09/04/2021 15:32:48 09/04/19 22 09/04/2021 VAGIN ITIS PLUS STD PANEL neisseria gonorrhoeae GC neg negati ve If both Pap and Endoc ervic al swabs are colle cted, the Prese rvCyt Solut ion liqui d Pap speci men must be colle cted befor e the endoc ervic al swab speci men. Not Available [facility] 6 [facility], [place], [address], 09/04/2021 15:32:48 09/04/19 22 09/05/2021 HEPAT ITIS B SURFA CE ANTIG EN W/REF L CONFI RM hepatitis B surface antigen NON-RE ACTIVE non-re active normal Not Available [facility] [address] [place], [address], 09/05/2021 13:14:18 09/04/19 22 09/05/2021 HEPAT ITIS C AB W/REF L TO HCV RNA, QN, PCR hepatitis C antibody NON-RE ACTIVE non-re active normal Not Available [facility] [address] [address] [place], [address], 09/05/2021 13:14:19 09/04/19 22 09/05/2021 HEPAT ITIS [...] a test for HCV RNA (test code 46471 ) is sugge sted. For addit ional infor hood n pleas e refer to http: //[facility] catyane n.que stdia gnost ics.c om/fa q/FAQ 22v1 (This link is being provi ded for infor matio nal/ educa yimi l purpo ses only. ) Not Available [place] [address] [address] [place], [address], 09/05/2021 13:14:19 09/04/19 22 09/05/2021 HSV 1/2 IGG,T YPE SPECI FIC AB hsv 1 IgG, type specific Ab 56.00 index high Not Available [facility] [address] [place], [address], 09/05/2021 13:14:19 09/04/19 22 09/05/2021 HSV 1/2 [...] or neona jose scree radha. Not Available [facility] [address] [address], [place], [address], 09/05/2021 13:14:19 09/04/1909/05/2021 HIV 1/2 ANTIG EN/AN [...] state law prohi bits you from rupa saleh furth er discl osure of the infor [...] matio n pleas e refer to http: //[facility] corie weber.que stdia gnost ics.c om/fa q/FAQ 106 (This link is being provi ded for infor matio nal/ educa yimi l purpo ses only. ) The perfo rmanc e of this assay has not been clini kellen valid ated in patie nts less than 2 years old. Not Available [facility] [address] [place], [address], 09/05/2021 13:14:19 09/04/19 22 09/05/2021 RPR (DX) W/REF L TITER AND CONFI RMATO RY TESTI NG RPR (DX) w/refl titer and confirmatory testing NON-RE ACTIVE non-re active normal Not Available [facility] [address] [place], [address], 09/05/2021 13:14:20 09/04/19 22 09/05/2021 HPV HIGH [...] l cervi lydia cytol ogy. Not Available [facility] [address] [place], [address], 09/05/2021 16:41:01 09/04/19 22 09/10/2021 THINP REP TIS PAP clinical information: normal Infor matio n not provi ded Not Available [address], [address], 09/10/2021 14:00:04 09/04/19 22 09/10/2021 THINP REP TIS PAP LMP: normal Infor matio n not provi ded Not Available [address] [place], [address], 09/10/2021 14:00:04 09/04/19 22 09/10/2021 THINP REP TIS PAP prev. Pap: normal Infor matio n not provi ded Not Available [address], [address], 09/10/2021 14:00:04 09/04/19 22 09/10/2021 THINP REP TIS PAP prev. BX: normal Infor matio n not provi ded Not Available [address], [address], 09/10/2021 14:00:04 09/04/19 22 09/10/2021 THINP REP TIS PAP source: normal Endoc ervix Not Available [address], [address], 09/10/2021 14:00:04 09/04/19 22 09/10/2021 THINP REP TIS PAP statement of adequacy: normal SATIS FACTO RY FOR EVALU ATION Not Available [address], [address], 09/10/2021 14:00:04 09/04/19 22 09/10/2021 THINP REP TIS PAP interpretati on/result: Negat theron for intra epith elial blaine weber or victoria souza . Atrop irina miguel rn; predo minan tly parab migue cells Not Available [place] [address] [address] [place], [address], 09/10/2021 14:00:04 09/04/19 22 09/10/2021 THINP REP TIS PAP comment: normal This Pap test has been evalu ated with compu ter jr sheriff techn ology . Not Available [place] [address] [place], [address], 09/10/2021 14:00:04 09/04/19 22 09/10/2021 THINP REP TIS PAP cytotechnolo gist: normal ADRIEN, CT( CP) CT scree radha locat ion: [place] [address] [place] [address] Not Available [place] [address] [address] [place], [address], 09/10/2021 14:00:04 09/04/19 22 09/10/2021 THINP REP TIS PAP comment EXPLA NATOR Y NOTE: The Pap is a scree radha test for cervi lydia cance r. It is not a diagn ostic test and is subje ct to false negat theron and false posit theron resul ts. It is most relia ble when a satis facto ry sampl e, regul anahi obtai jovnany, is submi tted with relev ant clini lydia findi ngs and histo ry, and when the Pap resul t is evalu ated along with histo carrol and curre nt clini lydia infor matio n. Not Available [place] [address] [place], [address], 09/10/2021 14:00:04 09/25/19 24 09/26/2023 HPV HIGH [...] l cervi lydia cytol ogy. Not Available [address], [address], 09/27/2023 09:05:57 09/25/19 24 09/26/2023 VAGIN ITIS PLUS STD PANEL bacterial vaginosis BV neg negati ve normal Not Available [address], [address], 09/27/2023 09:05:58 09/25/19 24 09/26/2023 VAGIN ITIS PLUS STD PANEL raghu species C. spp neg negati ve normal Not Available [address], [address], 09/27/2023 09:05:58 09/25/19 24 09/26/2023 VAGIN ITIS PLUS STD PANEL raghu glabrata C. gla neg negati ve normal Not Available [address], [address], 09/27/2023 09:05:58 09/25/19 24 09/26/2023 VAGIN ITIS PLUS STD PANEL trichomonas vaginalis CV/TV TRICH neg negati ve normal Not Available [address], [address], 09/27/2023 09:05:58 09/25/19 24 09/26/2023 VAGIN ITIS PLUS STD PANEL chlamydia trachomatis CT neg negati ve normal This repor t is inten ded for us in clini lydia monit oring and manag ement of patie nts. It is not inten ded for use in medic al-le gal appli catio n. Not Available [address], [address], 09/27/2023 09:05:58 09/25/19 24 09/26/2023 VAGIN ITIS PLUS STD PANEL neisseria gonorrhoeae GC neg negati ve normal This repor t is inten ded for us in clini lydia monit oring and manag ement of patie nts. It is not inten ded for use in medic al-le gal appli catio n. Not Available [address], [address], 09/27/2023 09:05:58 09/25/19 24 09/29/2023 THINP REP TIS PAP clinical information: normal None given Not Available [address], [address], 09/29/2023 12:22:24 09/25/19 24 09/29/2023 THINP REP TIS PAP LMP: normal NONE GIVEN Not Available [address], [address], 09/29/2023 12:22:24 09/25/19 24 09/29/2023 THINP REP TIS PAP prev. Pap: normal NONE GIVEN Not Available [address], [address], 09/29/2023 12:22:24 09/25/19 24 09/29/2023 THINP REP TIS PAP prev. BX: normal NONE GIVEN Not Available [address], [address], 09/29/2023 12:22:24 09/25/19 24 09/29/2023 THINP REP TIS PAP source: normal Cervi x Not Available [address], [address], 09/29/2023 12:22:24 09/25/19 24 09/29/2023 THINP REP TIS PAP statement of adequacy: normal SATIS FACTO RY FOR EVALU ATION Not Available [address], [address], 09/29/2023 12:22:24 09/25/19 24 09/29/2023 THINP REP TIS PAP interpretati on/result: Cytol ogy Resul ts: Negat theron for intra epith elial lesio n or malig libby . Atrop irina miguel rn; predo wendie kinseyy parab migue cells Not Available [facility] [address] [place], [address], 09/29/2023 12:22:24 09/25/19 24 09/29/2023 THINP REP TIS PAP comment: normal This Pap test has been evalu ated with compu ter jr jaziel techn ology . Not Available [facility] [address] [address], [place], [address], 09/29/2023 12:22:24 09/25/19 24 09/29/2023 THINP REP TIS PAP cytotechnolo gist: normal PELAEZ, CT( CP) CT Scree radha locat ion: [address] [place] [address] Not Available [facility] [address] [address] , [place], [address], 09/29/2023 12:22:24 09/25/19 24 09/29/2023 THINP REP [...] clini lydia infor matio n. Not Available [facility] [address] [address] , [place], [address], 09/29/2023 12:22:24 10/11/19 24 10/10/2023 US, trans vagin al No observ ation record ed. [email or web address] [address], [place], [address], 10/20/2023 10:30:46 Result Notes None recorded. Problems [...] : NO ProblemS tatus: Resolve Not Available [facility] 2 17:20:11 Breast neoplasm screenin g NOS Completed 201711/16/2017 Screenin g mammogra m - other; Location : None Severity : Moderate Progress : Stable Added By: Kathleen You Add to Current Problems : YES ProblemS tatus: Resolve Not Available [facility] 1 18:26:31 Low grade squamous intraepi thelial lesion on cervical Papanico laou smear 57016556441 105 Completed 201709/03/2021 Low grade squamous intraepi [...] : NO ProblemS tatus: Current Leeannridge Cantrell [facility], [facility] 2 11:54:09 Atrophic vaginiti s 36974430 Completed 201709/03/2021 Atrophic vaginiti s, postmeno pausal; Location : None Severity : Moderate Progress : Stable Added By: Sara Thakkar Add to Current Problems : YES ProblemS tatus: Current Postmeno pausal atrophic vaginiti s; Severity : Moderate Progress : Stable Added By: Sara Thakkar Add to Current Problems : YES ProblemS tatus: Current JERALD Aguero [address] [place] [address], [address] , [facility] 4 10:37:23 Screenin g mammogra phy Completed 201711/16/2017 Encounte r for screenin g mammogra m for malignan t neoplasm of breast; Progress : Stable Added By: Kathleen You Add to Current Problems : NO ProblemS tatus: Resolve Not Available [facility] 2 17:20:11 Recurren t urinary tract infectio n 817042673 Active 2022 JERALD Aguero [address] [place] [address], [address] , [facility] 3 20:31:41 Pain in pelvis 29796774 Active 2023 JERALD Aguero [address] [place] [address], [address] , [facility] [employer] [facility] 4 10:36:25 Atrophic vaginiti s 36079915 Active 2023 Atrophic vaginiti s, postmeno pausal; Location : None Severity : Moderate Progress : Stable Added By: Sara Thakkar Add to Current Problems : YES ProblemS tatus: Current Postmeno pausal atrophic vaginiti s; Severity : Moderate Progress : Stable Added By: Sara Thakkar Add to Current Problems : YES ProblemS tatus: Current JERALD Aguero [address] [place] [address], [address] , [facility] 4 10:37:23 Notes:Screening mammogram - other (V76.12) ; OnsetDate: 09/17/2017; ResolvedDate: 11/16/2017; Progress: Stable Added By: Kathleen You Add to Current Problems: NO ProblemStatus: Resolve Problem Notes None recorded. Procedures Surgical History Date Name Laterality Status Provider Name and Address Organization Details Recorded Time 09/25/19 24 Date of Last Pap Smear completed JERALD Aguero [address] [place] [address], [address], [place] [facility] 10/03/2023 11:28:00 06/01/20 Most Recent Mammogram completed [facility] 12/27/2022 10:10:34 repair of stress incontinence by suprapubic sling completed Darlin Khan [facility] 08/29/2021 09:09:52 LEEP [facility] 09/03/2021 12:05:17 Colonoscopy completed [facility] 09/03/2021 12:05:17 Imaging Results None recorded. Procedure [...] CAPSULE BY MOUTH NEEDED AFTER INTERCOU RSE active Not Available Not Available No t Available iron 12/27 completed Not Available Not Available Not Available Imitrex Inject 0.5 ml subcutan eously prn for migraine 2017 active Imitrex 6mg Injectio n RxNorm: [id number] Allow Substitu tion: True Refill Denied: No [...] Body mass index (BMI) Body height Systolic And Diastolic Provider Name and Address Organization Details Last Updated DateTime 09/03/2021 97.6 [degF] 13890.85 g 29.5 kg/m2 165.1 cm 120/68 mm[Hg] [facility]ann [facility] 2 12:04:13 Date Recorded Body height Body mass index (BMI) Body weight Body temperature Systolic And Diastolic Provider Name and Address Organization Details Last Updated DateTime 09/25/2023 165.1 cm 31.3 kg/m2 21239.3 7 g 96.8 [degF] 120/76 mm[Hg] Jimena Humboldt [facility] 4 09:57:55 Date Recorded Body height Body mass index (BMI) Body weight Body temperature Systolic And Diastolic Provider Name and Address Organization Details Last Updated DateTime 10/10/2023 165.1 cm 30.3 kg/m2 09843.8 1 g 96.8 [degF] 112/72 mm[Hg] Mary Garciaa [facility] 4 10:34:09 Date Recorded Body height Body mass index (BMI) Body weight Body temperature Systolic And Diastolic Provider Name and Address Organization Details Last Updated DateTime 12/27/2022 165.1 cm 29.7 kg/m2 36849.1 6 g 97.1 [degF] 104/64 mm[Hg] Leeann [facility] 3 10:11:38 Date Recorded Body height Body mass index (BMI) Body weight Body temperature Systolic And Diastolic Provider Name and Address Organization Details Last Updated DateTime 06/07/2022 165.1 cm 28.8 kg/m2 46411.7 6 g 97.2 [degF] 122/84 mm[Hg] Erlinda Jackson [facility] 2 09:37:12 Social History Question Answer Notes LastModified by [employer] Details LastModified Time Tobacco Smoking Status Never Smoker Leeann Cantrell [facility], [facility] 09/03/2021 12:05:09 Are You Blind Or Do You Have Difficulty Seeing? No Information not available 09/03/2021 Are You Deaf Or Do You Have Serious Difficulty Hearing? No Information not available 09/03/2021 What Type Of Diet Are You Following? REGULAR Information not available 12/27/2022 What Is The Highest Grade Or Level Of School You Have Completed Or The Highest Degree You Have Received? [id number] [email or web address] Information not available 10/10/2023 How Many Children Do You Have? 0 Information not available 12/27/2022 What Is Your Relationship Status? Information not available 09/03/2021 Are You Sexually Active? Yes [email or web address] Information not available 08/29/2021 Sex: Unknown Functional Status Question Answer Note LastModified by [employer] Details LastModified Time Do you use any illicit or recreational drugs? No Information not available 09/03/2021 Do you or have you ever used any other forms of tobacco or nicotine? No Information not available 09/03/2021 What is your level of alcohol consumption? None Information not available 12/27/2022 Are you currently employed? No [email or web address] Information not available 10/10/2023 Do you or [...] SNOMED-CT Code Diagnosis ICD10 Code Diagnosis Note [id number] JERALD Aguero [facility] [address] [place] [address] 09/03/2021 11:57:36 09/03/2021 13:10:23 Depression screening 910914218 Z13.31 negative Gynecologi c examination 64952189 Z01.419 WWE completed- yearly exams recommende dPap with HPV obtained.E ncouraged monthly SBEs, healthy diet, regular exercise, probiotics Mammogram- due in March; yearly screeningL ipid screening- by PCP; q 5 years recommende dColon cancer screening - up-to-date Diabetes screening- by PCP; q 3 year screening recommende dDepressio n screening- negativeVa ccines- up-to-date Screening for malignant neoplasm of cervix 786700359 Z12.4 Screening for malignant neoplasm of breast 554325458 Z12.39 Venereal d isease screening 742213474 Z11.3 Atrophic vaginitis 40721 000 N95.2 Acute pelvic pain 585125 005 R10.2 Patient case to submit [place] for [place] [id number] AMANDA GONCALVES DO [facility] [address] [place] [address] 06/07/2022 09:17:04 06/07/2022 10:13:19 Pruritus of vulva 38463179 L29.2 vulvar irritation following extended antibiotic use. Likely yeast infection of vulva. If it does clear by friday to call and will prescribe triamcinol one ointment [id number] JERALD Aguero [address] [address] 12/27/2022 10:02:48 12/27/2022 15:47:06 Gynecologic examination 10269958 Z01.419 WWE completed- yearly exams recommende dPap not obtained; - up-to-date Discussed breast self-aware ness, healthy diet, regular exercise, probiotics Mammogram- dueLipid screening- by PCPColon cancer screening - up-to-date Diabetes screening- by PCPVaccine s- up-to-date Screening for malignant neoplasm of breast 822006169 Z12.31 Depression screening 171 253981 Z13.31 screen negative Recurrent urinary tract infection 217614120 N39.0 Void before and after intercours erx for macrobid - take prn after intercours e Screening for cardiovascular system disease 235889757 Z13.6 [facility] [id number] Sara Shikha Thakkar JERALD [facility] [address] [place] [address] 09/25/2023 09:48:40 09/25/2023 17:41:24 Dyspareunia 05546028 N94.10 Postcoital bleeding 4888 0000 N93.0 Screening for malignant neoplasm of cervix 155722060 Z12.4 Cervical cancer screening is used to find abnormal changes in the cells of the cervix that could lead to cancer. Screening includes the Pap test and, for some women, testing for a virus called human papillomav irus (HPV). The main cause of cervical cancer is infection with HPV. Atrophic vaginitis 29030 000 N95.2 Rx for vaginal estrogen Pain in pelvis 91109692 R10.2 Schedule USPatient case to submit [place] [id number] Priyankafernando Shikha Thakkar JERALD [address] [address] 10/10/2023 09:47:10 10/10/2023 11:58:00 Pain in pelvis 74072905 R10.2 Discussed normal US findings.A jose will [...] 1 [employer] (MEDICARE REPLACEMENT/ ADVANTAGE - PPO) [id number] Maryjo Virk [id number] Maryjo Virk Notes Date Note Type Note [...] urge and stressdesires STI screening JERALD Aguero [facility], [place], [address], [facility] 09/04/2021 18:56:04 06/07/2022 text/html Pt is [...] and just doesn't feel good. 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 She has not seen her manager of investigations yet. States right side still feels numb at times. She denies headaches and dizziness. She denies palpitations and chest pain. Denies shortness of breath. Maryjo denies leg pain/cramps.Last pap 08/2021 and normal.She denies postmenopausal bleeding. Denies urinary incontinence. Reports frequent urinary tract infections, caused by intercourse. JERALD Aguero [address] [facility], [place], [address], [facility] 01/04/2023 12:13:48 09/25/2023 text/html MenopauseReporte d bypatient.Quality:nigh [...] discharge, irritation, and odor.She is seeing a manager of investigations for passing out randomly.User Support Analyst karen an RPR, which was positive 1:1 titer. States her PCP repeated the labs and was told everything was fine. Due to her symptoms, her manager of investigations wants her to have a lumbar puncture, which is scheduled for November.Takes macrobid after intercourse and states it is helping in preventing UTIs. JERALD Aguero [address] [facility], [place], [address], Simph[facility] IV 09/29/2023 10:40:20 10/10/2023 text/html Maryjo presents [...] seconds-states the pain is better JERALD Aguero [address], [place], [address], [facility] IV 10/14/2023 21:21:55 OBGyn Episode No OBEpisode recorded.
[2024-12-20 12:40] LABS: Alanine Aminotransferase 35 U/L (6-35); Albumin Level 4.1 g/dL (3.5-5.1); Alkaline Phosphatase 79 U/L (38-126); Anion Gap 9 mmol/L (4-12); Aspartate Amino Transferase 51 U/L (14-36); Bilirubin,Total 0.4 mg/dL (0.2-1.3); Blood Urea Nitrogen 11 mg/dL (7-17); Calcium 9.3 mg/dL (8.4-10.2); Carbon Dioxide 27 mmol/L (22-30); Chloride 105 mmol/L (98-107); Cholesterol 117 mg/dL (0-200); Estimated Glomerular Filt Rate > 60; Glucose 92 mg/dL (65-110); HDL Direct 44 mg/dL; Potassium 4.1 mmol/L (3.4-5.0); Sodium 141 mmol/L (137-145); Total Protein 7.1 g/dL (6.3-8.2); Triglycerides 86 mg/dL (<150)
[2024-12-20 12:51] LABS: LDL Cholesterol Direct 46 mg/dL
[2024-12-20 15:21] LABS: Vitamin D 25 Hydroxy 47.2 ng/mL
[2024-12-20 15:37] LABS: Hemoglobin A1C. 5.6 % (<5.7)
== END 2024-12-20 10:58 | disposition home or self-care (01) ==
PROVIDERS: PCP Family Medicine; Visit Provider Nurse Practitioner Family
DX: E78.5 Hyperlipidemia, unspecified (principal); E55.9 Vitamin D deficiency, unspecified; R73.03 Prediabetes
CPT/HCPCS: 36415; 80053; 80061; 82306; 83036